=== PATIENT | male | born 1945 | race Caucasian/White ===

== ENCOUNTER 2018-12-24 11:02 | Outpatient (CLI) | payer MEDICARE, SELFPAY ==
--- NOTE | 2018-12-24 11:00 | DI.RAD_ITS ---
SYMPTOM/DIAGNOSIS: LT KNEE PAIN, ? FOREIGN BODY LEFT KNEE: There is mild narrowing of the medial femoral tibial joint space and mild periarticular spurring. No joint effusion is seen. There is some thickening in the anterior soft tissues but no evidence of calcification or joint space loose bodies. IMPRESSION: Mild degenerative changes.
== END 2018-12-24 11:22 ==
PROVIDERS: PCP Family Medicine; Referring Provider Family Medicine; Visit Provider Student in an Organized Health Care Education/Training Program
DX: M25.562 Pain in left knee (principal); M17.12 Unilateral primary osteoarthritis, left knee; Z18.9 Retained foreign body fragments, unspecified material; I10 Essential (primary) hypertension
CPT/HCPCS: 20610; 73562; 99214; J1030

== ENCOUNTER 2020-05-06 03:16 | Outpatient (CLI) | payer MEDICARE, SELFPAY ==
[2020-05-15 16:38] LABS: AFP Tumor Marker <2.5 ng/mL (<8.1)
== END 2020-05-06 03:36 ==
PROVIDERS: PCP Family Medicine; Visit Provider Family Medicine
DX: K75.81 Nonalcoholic steatohepatitis (NASH) (principal)
CPT/HCPCS: 36415; 82105

== ENCOUNTER 2020-06-24 09:44 | Emergency (ER) | payer MEDICARE, SELFPAY ==
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
[2020-06-24 09:59] VITALS: BP 167/71; PULSE 86; RESP 20; TEMP 36.9; O2SAT 99
--- NOTE | 2020-06-24 10:07 | W.ED.GENAD ---
Discharge Plan Disposition Patient Disposition: HOME Condition: Stable Discharge Details Clinical Impression: Sprain of right thumb Primary Care Provider: Avelino Caballero ED Provider: Kristy Corley Home Meds and New Rx's Prescriptions: Continued terazosin 2 MG capsule 10 mg PO HS RF: 0 simvastatin 20 MG tablet 20 mg PO HS RF: 0 finasteride 5 MG tablet 5 mg PO DAILY RF: 0 omeprazole 10 MG capsule,delayed release(DR/EC) 20 mg PO DAILY RF: 0 furosemide 20 MG tablet 20 mg PO 5XW RF: 0 Discharge Instructions Instructions: Finger Sprain (ED) Additional Instructions: Rest, ice, and elevate the affected area as much as possible. Alternate tylenol and motrin as needed and directed for pain. Follow-up with your scheduled appointment with Dr. Campos on Monday. Return immediately to the emergency department if you develop any worsening or new concerning symptoms. Referrals: Donavan Campos MD [ [facility] ST[facility]FF PHYSICIAN] - Discharge Data Discharge Date/Time-TO BE ENTERED AT DEPARTURE: 06/24/20 12:08 Discharge Physician: Kristy Corley Medical Decision Making 75yo M with R thumb pain for the past 3 days after he dislocated it while cutting plastic with scissors. He since has dislocated it 3 times and reduced each time himself. Presenting now with increased pain at some. He has tenderness to palpation and mild to moderate edema at the right thumb. When isolating at PIP and DIP, he appears to have normal motor and sensory function but with increased pain. There is no evidence of cellulitis. No obvious deformity or crepitus. Patient declines medication for pain. Suspect either fracture or inflammation after multiple dislocations. Will refer for right thumb x-ray. Thumb x-ray negative for fracture or dislocation. Case and x-ray reviewed with Dr. Nga inman to dislocate the thumb. Agrees with plan for thumb spica. Patient will follow up with his appointment with Dr. Campos on Monday. Usual and customary return precautions given prior to discharge. Medical Records Medical records reviewed: Yes I reviewed the patient's medical records. Imaging Data Radiologic Study: Radiologist's impression: XR THUMB RT CLINICAL HISTORY: s/p multiple dislocations R thumb. TECHNIQUE: 2D digital imaging was performed. COMPARISON: No exams were available for comparison FINDINGS: BONES: No acute fracture is present. No bony destructive lesion is seen. There is a tiny density anterior to the distal aspect of the proximal phalanx of the right thumb which appears chronic. JOINTS: No dislocation present. Mild degenerative changes of the interphalangeal joint of the thumb. SOFT TISSUE: Normal. IMPRESSION: No evidence of acute fracture, dislocation, or subluxation. HPI General Mode of arrival: ambulatory. Date/Time Provider Initiated Documentation: 06/24/20 09:45. Limitations to Documentation: no limitations. Information obtained by: patient. HPI Narrative: Patient is a 75-year-old male who presents with right thumb pain after dislocating it 3 times this week. Patient states he was cutting plastic with scissors 2 days ago when he felt his right thumb dislocate. He states he was able to reduce it himself and since then it has dislocated a few times on its own, each time stating that he was able to reduce himself. He states today he now has more pain and swelling and pain with range of motion. He denies any fever. Related Data Home Medications Medication Instructions Recorded Confirmed omeprazole 20 mg PO DAILY 01/20/15 06/24/20 finasteride 5 mg PO DAILY tab-cap 08/28/15 06/24/20 simvastatin 20 mg PO HS tab-cap 08/28/15 06/24/20 terazosin 10 mg PO HS tab-cap 08/28/15 06/24/20 furosemide 20 mg PO 5XW 09/10/16 06/24/20 Allergies Allergy/AdvReac Type Severity Reaction Status Date / Time No Known Allergies Allergy Unverified 06/24/20 10:06 General Stated Complaint: Orthopedic JENNIFER: 4 Review of Systems All systems reviewed & are unremarkable except as noted in HPI and below [facility] Medical History (Updated 06/24/20 @ 11:50 by Kristy Corley DO) Allergic rhinitis BPH (benign prostatic hyperplasia) GERD Hypertension Spinal stenosis Surgical History (Updated 04/18/18 @ 14:33 by [employer] [place]) Endoscopic Carpal Tunnel release (06/07/16) Repair of inguinal hernia Rotator Cuff Repair (09/03/15) Social History Smoking/Tobacco Use Status: Never Smoking risk assessment performed?: Yes Alcohol Intake: never Drug use: Never Substance use type: does not use Do you feel safe at home: Yes Do you feel safe in your relationship?: Yes Exam Const General: cooperative, healthy appearing and no acute distress HENMT Head: normal to inspection Mouth: oral mucosae normal Eyes General: appearance normal, both eyes and all related structures Neck Neck: normal visual inspection Resp Effort & Inspection: normal respiratory effort and able to speak in complete sentences Cardio Rate: regular rate Skin General skin exam: no rashes or lesions noted Neuro General: patient alert, patient awake and patient oriented x3 Motor: muscle tone normal throughout Other: There is normal motor function at the DIP and PIP joints of the right thumb when isolating each joint which mainly causes pain. Motor/sensory grossly intact. Extrem Hand/finger images: 1. Tenderness to palpation and mild to moderate edema of right thumb extending from base to tip. Majority of pain is in the base of the thumb. There is no erythema, Psych Appearance: grossly normal Affect: normal affect Course Vital Signs Vital signs: Vital Signs Temperature 98.4 F 06/24/20 09:59 Pulse 86 06/24/20 09:59 Respiratory Rate 20 06/24/20 09:59 Blood Pressure 167/71 H 06/24/20 09:59 Pulse Oximetry 99 06/24/20 09:59 Temperature 98.4 F 06/24/20 09:59 Temperature Source Skin 06/24/20 09:59 Pulse 86 06/24/20 09:59 Respiratory Rate 20 06/24/20 09:59 Blood Pressure 167/71 H 06/24/20 09:59 Blood Pressure Position Sitting 06/24/20 09:59 Pulse Oximetry 99 06/24/20 09:59 Oxygen Delivery Method Room Air 06/24/20 09:59 Oxygen Flow Rate 0 06/24/20 09:59 Pain Level 5 06/24/20 09:59
--- NOTE | 2020-06-24 10:15 | DI.RAD_ITS ---
EXAM: XR THUMB RT CLINICAL HISTORY: s/p multiple dislocations R thumb. TECHNIQUE: 2D digital imaging was performed. COMPARISON: No exams were available for comparison FINDINGS: BONES: No acute fracture is present. No bony destructive lesion is seen. There is a tiny density ant erior to the distal aspect of the proximal phalanx of the right thumb which appears chronic. JOINTS: No dislocation present. Mild degenerative changes of the interphalangeal joint of the thumb. SOFT TISSUE: Normal. IMPRESSION: No evidence of acute fracture, dislocation, or subluxation. DATA REPOSITORY: RADIATION DOSE DELIVERED:
== END 2020-06-24 12:08 | disposition home or self-care (01) ==
PROVIDERS: Emergency Provider Physician Assistant; PCP Family Medicine
DX: S63.621A Sprain of interphalangeal joint of right thumb, initial encounter (principal); X50.9XXA Other and unspecified overexertion or strenuous movements or postures, initial encounter; I10 Essential (primary) hypertension
CPT/HCPCS: 99283; 73140

== ENCOUNTER → 2020-06-29 13:54 | Outpatient (BNVA) | payer MEDICARE, SELFPAY | PROVIDERS: PCP Family Medicine; Referring Provider Family Medicine; Visit Provider Student in an Organized Health Care Education/Training Program | DX: S63.641A Sprain of metacarpophalangeal joint of right thumb, initial encounter (principal); X50.9XXA Other and unspecified overexertion or strenuous movements or postures, initial encounter; I10 Essential (primary) hypertension | CPT/HCPCS: 99214 ==

== ENCOUNTER 2020-09-18 03:43 | Outpatient (CLI) | payer OTHER, SELFPAY ==
--- NOTE | 2020-09-18 | DI.US_ITS ---
APPROVED REPORT EXAM: Comprehensive 2D, Doppler, and color-flow Echocardiogram Patient Location: Out-Patient Car Worker: Siobhan Dinh RDCS (AE) Indications: Arrhythmia, Edema, Hypertension, LVH by EKG Other Information Study Quality: Good Conclusion Normal left ventricular wall thickness and chamber size. Estimated ejection fraction is 60%. There are no segmental wall motion abnormalities Normal right ventricular size and systolic function Both atria are normal in size There are no structural valvular abnormalities Mild to moderate mitral and tricuspid regurgitation. Normal estimated right ventricular systolic pre ssure 30 mmHg Dilated ascending aorta measuring 4.19 cm Wall motion Left Ventricle The left ventricle is normal size. The left ventricular systolic function is normal. The left ventric ular ejection fraction is within the normal range. There is normal left ventricular wall thickness. T here is normal LV segmental wall motion. There is no ventricular septal defect visualized. LVEF is 60 %. Right Ventricle The right ventricle is normal size. The right ventricular systolic function is normal. The RVSP is 30 .3mmHg. Atria The left atrium size is normal. The right atrium size is normal. The interatrial septum is intact wit h no evidence for an atrial septal defect. Aortic Valve The aortic valve is normal in structure. Aortic valve is trileaflet. There is no aortic valvular sten osis. No aortic regurgitation is present. Mitral Valve The mitral valve is normal in structure. No evidence of mitral valve stenosis. Mild to moderate jessi l regurgitation. Tricuspid Valve The tricuspid valve is normal in structure. There is no tricuspid valve stenosis. Mild to moderate tr icuspid regurgitation. Pulmonic Valve The pulmonary valve is normal in structure. There is no pulmonic valvular stenosis. Trace pulmonic re gurgitation. Great Vessels The aortic root is normal in size. The ascending aorta is moderately dilated.4.19 cm Aortic arch is n ormal in caliber. IVC is normal in size and collapses >50% with inspiration. Pericardium There is no pericardial effusion. 2D Dimensions IVSD d PLAX 1.02 cm M: 0.6-1.2 LV Vol A2C d MOD 76.5 mL LVPW d PLAX 1.02 cm M: 0.6 - 1.2 LV Vol A4C d MOD 135.9 mL LVID d PLAX 4.97 cm M: 4.2 - 5.8 LA vol/ BSA A2C s A-L 30.2 mL/m2 LVDs 3.25 cm M: 2.5 - 4.0 LA vol/ BSA A4C s A-L 34.8 mL/m2 Ao Root d 3.01 cm M: 3.1 - 3.7 LA Vol/ BSA Biplane s A-L 33.1 mL/m2 RA Area A4C 21.91 cm2 LA Area A4C s MOD 22.92 cm2 RA Vol/ BSA A4C s A-L 32.1 mL/m2 LA Area A2C s MOD 20.96 cm2 Ao Asc Diam d 4.19 cm M: 2.6 - 3.4 LV EF A4C MOD 59.5 % LV EF Teichholz 63.0 % LV EF A2C MOD 61.1 % LVEF (Mercado's) 60.08 % M: 52 - 72 LV EF Biplane MOD 60.1 % LV Volume 77.73 mL M: 62 - 150 SV 62.88 mL LV Volume Index 37.73 mL/m2 M: 34 - 74 SV Index 30.52 mL/m2 LV Vol Biplane MOD 104.7 mL FS 34.20 % M-Mode TAPSE 2.53 cm (M/F) >1.7 LV Diastology MV E' medial 0.088 (>0.07 m/s) E/A Ratio 1.1 LV E/e MED 9.10 (<14) MV E Vmax 0.80 (0.4-1.3 m/s) MV E' lateral 0.106 (>0.1 m/s) MV A Vmax 0.70 (0.4-1.3 m/s) LV E/e LAT 7.55 (<14) MV E/A Ratio 1.13 MV E/E' medial 9.14 MV E/E' lateral 7.56 Aortic Valve LVOT Area 2.98 cm2 AoV Area Vmax 2.12 cm2 LVOT Vmax 1.11 m/s AoV Area/ BSA (Vmax) 1.03 cm2/m2 LVOT Mean Michael. 0.77 m/s AIMEE Mean Michael. 2.01 cm2 LVOT Peak Grad 5.0 mmHg AIMEE Mean Michael. Index 0.97 cm2/m2 LVOT Mean Grad 2.6 mmHg LVOT VTI 0.252 m LVOT Diam s 1.90 cm AoV Vmax 1.56 m/s Velocity Ratio 0.71 AoV Mean Michael. 1.14 m/s AoV Peak Grad 9.8 mmHg LVOT SV 75.03 mL AoV Mean Grad 5.6 mmHg AoV VTI 0.350 m AoV Area VTI 2.14 cm2 AoV Area/ BSA (VTI) 1.04 cm/m2 Mitral Valve MV DT 181 (160-240 msec) MR Vmax 5.62 m/s MV PHT 52 msec MR VTI 2.064 m MV Area PHT 4.19 cm2 MR Peak Grad 126.4 mmHg MV VTI 0.234 m MR Mean Grad 91.4 mmHg MV VTI Annulus 0.240 m MR PISA Radius 0.55 cm MV Area VTI 3.30 (4.0-6.0 cm2) MR EROA 0.12 cm2 MR Aliasing Velocity 0.35 m/s MR PISA 1.88 cm2 Pulmonary Valve PV Vmax 1.22 (0.5-1.5 m/s) RVOT Peak Gr. 1.79 mmHg PV Peak Grad 5.9 mmHg RVOT Mean Gr. 0.90 mmHg PV Mean Grad 2.4 mmHg RVOT VTI 0.152 m PV VTI 0.239 m RVOT Vmax 0.67 m/s Tricuspid Valve TR Peak Grad 27.2 mmHg TR Vmax 2.61 m/s RA Pressure 3.00 mmHg RVSP (TR) 30.3 mmHg
== END 2020-09-18 04:03 ==
PROVIDERS: PCP Family Medicine; Visit Provider Internal Medicine
DX: I49.9 Cardiac arrhythmia, unspecified (principal); I10 Essential (primary) hypertension; R60.0 Localized edema; I08.1 Rheumatic disorders of both mitral and tricuspid valves; I51.7 Cardiomegaly
CPT/HCPCS: 93306

== ENCOUNTER → 2020-12-10 08:49 | Outpatient (BNVA) | payer MEDICARE, SELFPAY | PROVIDERS: PCP Family Medicine; Referring Provider Family Medicine; Visit Provider Student in an Organized Health Care Education/Training Program | DX: M25.852 Other specified joint disorders, left hip (principal); M25.552 Pain in left hip | CPT/HCPCS: 99213 ==

== ENCOUNTER 2020-12-10 10:03 | Outpatient (CLI) | payer MEDICARE, SELFPAY ==
--- NOTE | 2020-12-10 08:45 | DI.RAD_ITS ---
Exam(s) XR HIP LT COMPLETE AP PELVIS EXAM: XR HIP LT COMPLETE AP PELVIS INDICATION: left hip pain. TECHNIQUE: 2D digital imaging was performed. FINDINGS: The hip joint spaces are well maintained bilaterally. There is bilateral acetabular spurring, left g reater than right. A subchondral cyst is seen in the superior acetabulum on the left. There is mild spurring at the margin of the femoral heads.. IMPRESSION: [id number] degenerative changes of both hips, left greater than right. DATA REPOSITORY: RADIATION DOSE DELIVERED:
== END 2020-12-10 10:04 | disposition home or self-care (01) ==
LOC: DIORS 10:09
PROVIDERS: PCP Family Medicine; Referring Provider Family Medicine; Visit Provider Student in an Organized Health Care Education/Training Program
DX: M16.0 Bilateral primary osteoarthritis of hip (principal)
CPT/HCPCS: 99213; 73502

== ENCOUNTER 2020-12-31 03:23 | Outpatient (CLI) | payer MEDICARE, SELFPAY ==
--- NOTE | 2020-12-31 08:30 | DI.RAD_ITS ---
Exam(s) RF JOINT INJECTION FLUORO GUID EXAM: RF JOINT INJECTION FLUORO GUID CLINICAL HISTORY: L HIP INJ UNDER FLUORO, HIP PAIN LT, M25.552 TECHNIQUE: Fluoroscopy provided. Radiologist not present. CONTRAST MATERIAL: None COMPARISON: No exams were available for comparison FINDINGS: Fluoroscopy was provided left hip injection Submitted image(s) reveal needle placement lateral aspect of the femoral head. Contrast injected. Please refer to the procedure report for complete details. Cumulative Dose: greg Arzola=6.78 mGy IMPRESSION: RADIATION DOSE DELIVERED:
[2020-12-31] MEDS: Omnipaque 300 MG/ML 10 ML BTL IJ (14:54)
[2020-12-31] MEDS: Bupivacaine 0.5% Pres-Free 10 ML VIAL IJ (14:55)
[2020-12-31] MEDS: methylPREDNISolone ACETATE 80 MG/ML VIAL IM (14:56)
--- NOTE | 2020-12-31 15:26 | W.PROCNOTE ---
Date of service: 12/31/20 Time of Service: 14:46 Procedure Note Date of procedure: 12/31/20 Procedure: Left Hip Injection with Fluoroscopic Guidance Surgeon/Proceduralist/Physician: Donavan Campos Procedure Diagnosis: Left Hip Impingement Procedure Indications: Allen has had persistent pain of the LEFT hip and groin. Noninvasive measures have been tried. To serve as both diagnostic and therapeutic, an injection under fluoroscopy was recommended. I had discussed the risks of the procedure and the patient elected to proceed. Procedure Description: Allen was greeted in the flouroscopy room. The correct side was identified and the consent was reviewed with the patient and signed. The patient was then placed in the supine position on the fluoroscopy table. The LEFT hip was then prepped with Chloraprep. The anterolateral injection starting point was identiifed by bony landmarks and fluoroscopy. The skin and soft tissue in the tract of the injection was anesthetized with 1% Lidocaine. A spinal needle was then inserted deep into the hip joint at the level of the lateral femoral neck under fluoroscopic guidance. A small amount of Omnipaque solution was injected to confirm intraarticular placement. Once confirmed, the hip was injected with 6cc of 0.5% Bupivicaine and 80mg of Depo-Medrol. A bandaid was placed on the injection site. The patient tolerated the procedure well and noted improvement in pre-injection pain.
== END 2020-12-31 03:43 ==
PROVIDERS: PCP Family Medicine; Visit Provider Student in an Organized Health Care Education/Training Program
DX: M25.852 Other specified joint disorders, left hip (principal); M25.552 Pain in left hip; R10.32 Left lower quadrant pain
CPT/HCPCS: 20610; 77002; J1040

== ENCOUNTER 2021-08-10 02:05 | Outpatient (CLI) | payer MEDICARE, SELFPAY ==
[2021-08-10 07:27] LABS: Abs Immature Grans 0.02 10^3/uL (0.0-0.06); Absolute Basophil Count 0.04 10^3/uL (0.0-0.2); Absolute Eosinophil Count 0.15 10^3/uL (0.0-0.7); Absolute Lymphocyte Count 2.49 10^3/uL (1.2-3.4); Absolute Monocyte Count 0.65 10^3/uL (0.1-0.8); Absolute Neutrophil Count 5.05 10^3/uL (1.2-6.7); Basophils % 0.5; Eosinophils % 1.8; HCT 39.5 % (40.0-50.0); HGB 13.3 g/dL (13.5-17.5); Immature Grans % 0.2; Lymphocytes % 29.6; MCH 31.8 pg (27.0-33.0); MCHC 33.7 % (32.0-36.0); MCV 94.5 fL (80-95); MPV 11.8 fL (8.0-11.0); Monocytes % 7.7; Neutrophils % 60.2; Nucleated RBC 0 %; Platelet Count 116 10^3/uL (130-400); RBC 4.18 10^6/uL (4.36-5.78); RDW 11.8 % (11.8-14.1); RDW-SD 41.2 fL
[2021-08-10 07:28] LABS: Bilirubin Negative (Negative); Blood Large (Negative); Clarity Cloudy (Clear); Glucose Negative (Negative); Ketones Negative (Negative); Leukocyte Esterase Small (Negative); Nitrite Negative (Negative); Specific Gravity >= 1.030 (1.005-1.025); Urobilinogen 0.2 EU/dL (Up TO 0.2)
[2021-08-10 07:44] LABS: Bacteria Moderate HPF (Negative); C & S Indicated? Yes; Casts Negative LPF (Negative); Epithelial Cells Few HPF (Negative); Mucus Heavy (Negative); Other Cells Negative (Negative); RBC 20-50 HPF (0-2)
[2021-08-10 08:13] LABS: Anion Gap 11.2 mmol/L (3-11); BUN 31 mg/dL (7-18); CO2 24.8 mmol/L (21.0-32.0); Chloride 104 mmol/L (98-107); Estimated GFR 32.56 (mL/min/1.73m2); Glucose 99 mg/dL (74-106); Potassium 4.4 mmol/L (3.5-5.1); Sodium 140 mmol/L (136-145)
== END 2021-08-10 02:06 | disposition home or self-care (01) ==
LOC: LBO 02:06
PROVIDERS: PCP Family Medicine; Visit Provider Physician Assistant Medical
DX: R35.0 Frequency of micturition (principal); N30.01 Acute cystitis with hematuria
CPT/HCPCS: 36415; 80048; 81003; 81015; 85025; 87086

== ENCOUNTER 2021-08-11 22:21 | Emergency (ER) | payer MEDICARE, SELFPAY ==
[2021-08-11 22:28] VITALS: BP 116/60; PULSE 78; RESP 20; TEMP 36.3; O2SAT 95
--- NOTE | 2021-08-11 22:33 | ED.GENADUL_ITS ---
Discharge Plan Disposition Patient Disposition: HOME Condition: Improving Discharge Details Clinical Impression: Complication, blocked Sapp catheter Primary Care Provider: Avelino Caballero ED Provider: Mary Snider Home Meds and New Rx's Prescriptions: Continued magnesium 200 mg tablet 400 mg PO DAILY 0RF lisinopril 2.5 mg tablet 2.5 mg PO DAILY 0RF potassium chloride 10 mEq tablet,ER particles/crystals 10 meq PO DAILY 0RF terazosin 2 MG capsule 10 mg PO HS 0RF simvastatin 20 MG tablet 20 mg PO HS 0RF finasteride 5 MG tablet 5 mg PO DAILY 0RF omeprazole 10 MG capsule,delayed release(DR/EC) 20 mg PO DAILY 0RF furosemide 20 MG tablet 20 mg PO 5XW 0RF sulfamethoxazole-trimethoprim 800-160 mg tablet 1 tab PO BID 0RF Label Comments: TAKE ONE TABLET BY MOUTH TWICE A DAY FOR URINE INFECTION oxybutynin chloride 5 mg tablet 0RF Discharge Instructions Instructions: Sapp Catheter Placement and Care (ED) Additional Instructions: If no urine output you may try to irrigate catheter by hand with 15-20ml of saline. If this does not relieve the blockage, please be seen again. Keep your appointment with urology as previously scheduled. Continue taking the medication as previously prescribed. Follow up with primary care provider in 3-5 days. Return to ED sooner if any worsening or concerns. Increase oral fluids. Referrals: Avelino Caballero [Primary Care Provider] - 5 days Discharge Data Discharge Date/Time-TO BE ENTERED AT DEPARTURE: 08/11/21 23:31 Medical Decision Making 76-year-old male presents to the ER chief complaint of decreased urinary output in his catheter. Family which is here with him states that around 8:45 PM evening she changed out his leg bag which he noted only had 100 cc in the bag. She reports that he intermittently bends over with bladder spasm type pain to his lower abdomen. Denies any associated symptoms no fever no nausea vomiting. He has been self cathing over the weekend and had a indwelling Sapp catheter placed on Monday. He does have a past medical history of BPH, GERD, hypertension, DVT, spinal stenosis. He has an appointment with urology on the . He did see his PCP yesterday who ordered a urinalysis showed large blood 20-50 RBCs small leukocytes. And uric acid crystals. Opium and Belladonna ND ordered, bladder scan, and hand irrigation of Sapp. Opium and belladonna rectal suppository not available. Per RN report bladder scan shows 350 cc of urine. 2311: nurse staff industrial irrigated with approx 25 cc without any difficulty, catheter draining. Approximately 600 ml output. Patient discharge instructions given to family who verbalized understanding and feels comfortable taking care of patient at home. Discussed strict return instructions. This text was generated using [employer] dictation system, please disregard any oddities of phrase or misspellings. HPI General Mode of arrival: ambulatory . Date/Time Provider Initiated Documentation: 08/11/21 22:22 . Limitations to Documentation: no limitations . Information obtained by: patient and RN notes reviewed . HPI Narrative: 76-year-old male presents to the ER chief complaint of decreased urinary output in his catheter. Family which is here with him states that around 8:45 PM evening she changed out his leg bag which he noted only had 100 cc in the bag. She reports that he intermittently bends over with bladder spasm type pain to his lower abdomen. Denies any associated symptoms no fever no nausea vomiting. He has been self cathing over the weekend and had a indwelling Sapp catheter placed on Monday. He does have a past medical history of BPH, GERD, hypertension, DVT, spinal stenosis. He has an appointment with urology on the . He did see his PCP yesterday who ordered a urinalysis showed large blood 20-50 RBCs small leukocytes. And uric acid crystals. Related Data Home Medications Medication Instructions Recorded Confirmed omeprazole 10 mg capsule,delayed 20 mg PO DAILY 01/20/15 08/11/21 release finasteride 5 mg tablet 5 mg PO DAILY tab-cap 08/28/15 08/11/21 simvastatin 20 mg tablet 20 mg PO HS tab-cap 08/28/15 06/24/20 terazosin 2 mg capsule 10 mg PO HS tab-cap 08/28/15 08/11/21 furosemide 20 mg tablet 20 mg PO 5XW 09/10/16 08/11/21 lisinopril 2.5 mg tablet 2.5 mg PO DAILY 12/10/20 08/11/21 magnesium 200 mg tablet 400 mg PO DAILY tab 12/10/20 08/11/21 potassium chloride 10 mEq 10 meq PO DAILY 12/10/20 08/11/21 tablet,extended release(part/cryst) oxybutynin chloride 5 mg tablet 08/11/21 08/11/21 sulfamethoxazole 800 1 tab PO BID 08/11/21 08/11/21 mg-trimethoprim 160 mg tablet Allergies Allergy/AdvReac Type Severity Reaction Status Date / Time No Known Allergies Allergy Unverified 12/10/20 08:53 General Stated Complaint: Urinary JENNIFER: 3 Review of Systems All systems reviewed & are unremarkable except as noted in HPI and below Genitourinary Genitourinary: Reports as per HPI and Reports other (Decreased Sapp drainage, increased lower suprapubic cramping and fullness) PFSH All Active Problems (Updated 08/11/21 @ 23:20 by Mary Snider) Complication, blocked Sapp catheter (Acute) Femoral acetabular impingement (Acute) left hip Foreign body of knee, left, superficial (Acute) Spondylosis of lumbar region without myelopathy or radiculopathy (Chronic) Lumbar radicular pain (Chronic) Rotator cuff tear, right (Acute) Medical History (Updated 08/11/21 @ 23:20 by Mary Snider) Acute deep vein thrombosis (DVT) of brachial vein of right upper extremity (11/11/15) Allergic rhinitis BPH (benign prostatic hyperplasia) Complete tear of right rotator cuff (10/14/15) GERD Hypertension Right carpal tunnel syndrome (05/12/16) Spinal stenosis Spondylolisthesis at L4-L5 level (10/24/16) Surgical History Endoscopic Carpal Tunnel release (06/07/16) Repair of inguinal hernia Rotator Cuff Repair (09/03/15) Social History Smoking/Tobacco Use Status: Never Smoking risk assessment performed?: Yes Alcohol Intake: never Drug use: Never Substance use type: does not use Do you feel safe at home: Yes Do you feel safe in your relationship?: Yes Exam Narrative Exam Narrative: Constitutional: Alert and oriented x3. Appears stated age. Normal body habitus. Head: Normocephalic, no trauma. Eyes: Pupils PERRL, Red reflex noted, EOM's intact. Eyelids symmetrical without lesions, discharge, or swelling. ENT: Bilateral TM's WNL, External ear normal to inspection, no mastoid TTP, swelling, or erythema, Nasal turbinates WNL, no nasal discharge. Normal dentition, Posterior pharynx WNL, no exudate. Chest: RRR, Normal S1, S2, distal pulses intact. Resp: Lungs clear to auscultation bilaterally, no wheezes, rales, or rhonchi. Abdomen: Soft, non-distended, Normoactive bowel sounds all 4 quads. Suprapubic tenderness with palpation. Musculoskeletal: Normal gait, 5/5 strength to all four extremities. Skin: No suspicious rashes or lesions. Capillary refill less than 2 sec. Neurologic: Cranial nerves II-XII intact. Alert and oriented x 3. Motor: No def icits noted. Sensory: Intact bilaterally all 4 extremities. Reflexes: DTR's intact bilaterally.. Hematologic/Lymphatic: No ecchymosis, no lymphadenopathy. Const General: cooperative, comfortable, well developed and well groomed Nutritional Appearance: average body habitus Orientation: alert, awake and oriented x3 Resp Effort & Inspection: normal respiratory effort and able to speak in complete sentences Auscultation: clear to auscultation bilaterally Cardio Rate: regular rate Other: Sapp Catheter in place Course Vital Signs Vital signs: Vital Signs Temperature 36.3 C L 08/11/21 22:28 Pulse 78 08/11/21 22:28 Respiratory Rate 20 08/11/21 22:28 Blood Pressure 116/60 08/11/21 22:28 Pulse Oximetry 95 08/11/21 22:28 Temperature 36.3 C L 08/11/21 22:28 Temperature Source Temporal Artery Scan 08/11/21 22:28 Pulse 78 08/11/21 22:28 Respiratory Rate 20 08/11/21 22:28 Blood Pressure 116/60 08/11/21 22:28 Blood Pressure Position Sitting 08/11/21 22:28 Pulse Oximetry 95 08/11/21 22:28 Oxygen Delivery Method Room Air 08/11/21 22:28 Oxygen Flow Rate 0 08/11/21 22:28 Pain Level 3 08/11/21 22:28
[2021-08-11 23:27] LABS: Bilirubin Negative (Negative); Blood Large (Negative); Clarity Sl Cloudy (Clear); Glucose Negative (Negative); Ketones Negative (Negative); Leukocyte Esterase Trace (Negative); Nitrite Negative (Negative); Specific Gravity 1.025 (1.005-1.025); Urobilinogen 0.2 EU/dL (Up TO 0.2); pH 5.5 (5-8)
[2021-08-11 23:36] LABS: Bacteria Negative HPF (Negative); Epithelial Cells Negative HPF (Negative); Mucus Negative (Negative); RBC >50 HPF (0-2)
--- NOTE | 2021-08-11 23:36 | NUR.NOTE ---
Nursing Note: Bladder scanning showed 354 ml urine. Irrigated with 50 ml of sterile NS. Cleared catheter. Approx 500 ml drained.
[2021-08-11 23:37] VITALS: BP 124/68; PULSE 80; RESP 18; TEMP 36.6; O2SAT 80
[2021-08-11 23:37] LABS: C & S Indicated? Yes
== END 2021-08-11 23:31 | disposition home or self-care (01) ==
PROVIDERS: Emergency Provider Registered Nurse Emergency; PCP Family Medicine
DX: T83.098A Other mechanical complication of other urinary catheter, initial encounter (principal); N40.1 Benign prostatic hyperplasia with lower urinary tract symptoms; R33.8 Other retention of urine
CPT/HCPCS: 99283; 81003; 81015; 87086

== ENCOUNTER 2021-08-12 23:15 | Emergency (ER) | payer MEDICARE, SELFPAY ==
--- NOTE | 2021-08-12 23:20 | ED.GENADUL_ITS ---
Discharge Plan Disposition Patient Disposition: HOME Condition: Stable Discharge Details Clinical Impression: Complication, blocked Ochoa catheter Primary Care Provider: Avelino Caballero ED Provider: Otis Sharif Home Meds and New Rx's Prescriptions: Continued magnesium 200 mg tablet 400 mg PO DAILY 0RF lisinopril 2.5 mg tablet 2.5 mg PO DAILY 0RF potassium chloride 10 mEq tablet,ER particles/crystals 10 meq PO DAILY 0RF terazosin 2 MG capsule 10 mg PO HS 0RF simvastatin 20 MG tablet 20 mg PO HS 0RF finasteride 5 MG tablet 5 mg PO DAILY 0RF omeprazole 10 MG capsule,delayed release(DR/EC) 20 mg PO DAILY 0RF furosemide 20 MG tablet 20 mg PO 5XW 0RF sulfamethoxazole-trimethoprim 800-160 mg tablet 1 tab PO BID 0RF Label Comments: TAKE ONE TABLET BY MOUTH TWICE A DAY FOR URINE INFECTION oxybutynin chloride 5 mg tablet 0RF Discharge Instructions Instructions: Ochoa Catheter Placement and Care (ED) Additional Instructions: follow up with urology as scheduled if you feel more ill, have severe pain or fever return to the emergency department Medical Decision Making 76 yo male with hx of bph who has a ochoa in place since Monday and was placed at the MD, and seen yesterday due to it being clogged and had it flushed with successful drainage afterwards, comes in stating that it hasn't been draining tonight. Has not tried flushing at home. Denies fevers, abdomen pain, fevers, or blood in urine. He finished bactrim today for uti per family. He had the ochoa changed by nursing prior to my exam and is draining clear urine without blood or debris. He has no symptoms now and no abdominal tenderness. Given ochoa is now draining and now symptoms do not feel labs indicated though will send urine culture from the new ochoa to evaluate for resolution of the infection. He has f/u with urology this Monday at [facility]. Nursing did education with him and his . Stable for d/c and return precautions given Differential Diagnosis Differential Diagnosis: clogged catheter, bph Medical Records Medical records reviewed: Yes I reviewed the patient's medical records. HPI General Mode of arrival: ambulatory . Date/Time Provider Initiated Documentation: 08/12/21 23:15 . Limitations to Documentation: no limitations . Information obtained by: patient and family . History of Present Illness 76 year old M presents to the emergency department with the chief complaint of clogged catheter, described as moderate, and it has been constant. improves with No relieving factors improve symptom(s), No exacerbating factors reported . Patient notes no other symptoms.. Related Data Home Medications Medication Instructions Recorded Confirmed omeprazole 10 mg capsule,delayed 20 mg PO DAILY 01/20/15 08/11/21 release finasteride 5 mg tablet 5 mg PO DAILY tab-cap 08/28/15 08/11/21 simvastatin 20 mg tablet 20 mg PO HS tab-cap 08/28/15 06/24/20 terazosin 2 mg capsule 10 mg PO HS tab-cap 08/28/15 08/11/21 furosemide 20 mg tablet 20 mg PO 5XW 09/10/16 08/11/21 lisinopril 2.5 mg tablet 2.5 mg PO DAILY 12/10/20 08/11/21 magnesium 200 mg tablet 400 mg PO DAILY tab 12/10/20 08/11/21 potassium chloride 10 mEq 10 meq PO DAILY 12/10/20 08/11/21 tablet,extended release(part/cryst) oxybutynin chloride 5 mg tablet 08/11/21 08/11/21 sulfamethoxazole 800 1 tab PO BID 08/11/21 08/11/21 mg-trimethoprim 160 mg tablet Allergies Allergy/AdvReac Type Severity Reaction Status Date / Time No Known Allergies Allergy Unverified 12/10/20 08:53 General JENNIFER: 3 Review of Systems All systems reviewed & are unremarkable except as noted in HPI and below Constitutional Constitutional: Denies chills, Denies fever(s) and Denies weakness Cardiovascular Cardiovascular: Denies chest pain and Denies dyspnea Respiratory Respiratory: Denies cough and Denies dyspnea Gastrointestinal Gastrointestinal: Denies abdominal pain, Denies nausea and Denies vomiting Integumentary/Breasts Skin/Breast: Denies rash Neurologic Neurologic: Denies weakness PFSH All Active Problems (Updated 08/12/21 @ 23:24 by Otis Sharif MD) Complication, blocked Ochoa catheter (Acute) Femoral acetabular impingement (Acute) left hip Foreign body of knee, left, superficial (Acute) Spondylosis of lumbar region without myelopathy or radiculopathy (Chronic) Lumbar radicular pain (Chronic) Rotator cuff tear, right (Acute) Medical History (Updated 08/12/21 @ 23:24 by Otis Sharif MD) Acute deep vein thrombosis (DVT) of brachial vein of right upper extremity (11/11/15) Allergic rhinitis BPH (benign prostatic hyperplasia) Complete tear of right rotator cuff (10/14/15) GERD Hypertension Right carpal tunnel syndrome (05/12/16) Spinal stenosis Spondylolisthesis at L4-L5 level (10/24/16) Surgical History Endoscopic Carpal Tunnel release (06/07/16) Repair of inguinal hernia Rotator Cuff Repair (09/03/15) Social History Smoking/Tobacco Use Status: Never Smoking risk assessment performed?: Yes Alcohol Intake: never Drug use: Never Substance use type: does not use Do you feel safe at home: Yes Do you feel safe in your relationship?: Yes Exam Const General: no acute distress Orientation: alert HENMT Head: normal to inspection Ears: external ears normal General nose exam: external nose normal Mouth: moist mucous membranes Eyes General: appearance normal, both eyes and all related structures Neck Neck: normal visual inspection Resp Effort & Inspection: normal respiratory effort and able to speak in complete sentences Cardio Rate: regular rate GI Palpation: soft and nontender Skin General skin exam: no rashes or lesions noted Neuro General: patient alert and patient oriented x3 Extrem General: normal to inspection Psych Mental Status: mental status grossly normal
[2021-08-12 23:31] VITALS: BP 116/84; PULSE 86; RESP 18; TEMP 36.6; O2SAT 97
[2021-08-12 23:53] VITALS: TEMP 36.6
== END 2021-08-12 23:58 | disposition home or self-care (01) ==
LOC: ER 23:46
PROVIDERS: Emergency Provider Emergency Medicine; PCP Family Medicine
DX: T83.098A Other mechanical complication of other urinary catheter, initial encounter (principal); N40.0 Benign prostatic hyperplasia without lower urinary tract symptoms
CPT/HCPCS: 51702; 99283; 87086; 99282

== ENCOUNTER 2021-08-14 16:20 | Emergency (ER) | payer MEDICARE, SELFPAY ==
[2021-08-14 16:27] VITALS: BP 133/65; PULSE 68; RESP 20; TEMP 36.3; O2SAT 99
--- NOTE | 2021-08-14 16:39 | W.ED.GENAD ---
Discharge Plan Disposition Patient Disposition: HOME Condition: Improving Discharge Details Clinical Impression: Complication, blocked Ochoa catheter Primary Care Provider: Avelino Caballero ED Provider: Kristy Corley Home Meds and New Rx's Prescriptions: Continued magnesium 200 mg tablet 400 mg PO DAILY 0RF potassium chloride 10 mEq tablet,ER particles/crystals 10 meq PO DAILY 0RF terazosin 2 MG capsule 10 mg PO HS 0RF simvastatin 20 MG tablet 20 mg PO HS 0RF finasteride 5 MG tablet 5 mg PO DAILY 0RF fluticasone propionate 50 mcg/actuation spray,suspension 1 spray intranasal DAILY 0RF Rx Instructions: administer into each nostril lisinopril 5 mg tablet 5 mg PO DAILY 0RF rosuvastatin 20 mg tablet 20 mg PO DAILY 0RF Label Comments: pt states not taking omeprazole 10 MG capsule,delayed release(DR/EC) 20 mg PO DAILY 0RF furosemide 20 MG tablet 20 mg PO 5XW 0RF sulfamethoxazole-trimethoprim 800-160 mg tablet 1 tab PO BID 0RF Label Comments: TAKE ONE TABLET BY MOUTH TWICE A DAY FOR URINE INFECTION oxybutynin chloride 5 mg tablet 5 mg PO DIRECTED 0RF Discharge Instructions Instructions: Ochoa Catheter Placement and Care (ED) Additional Instructions: Flush your catheter as directed by nursing staff here. Follow-up with your scheduled appointment with urology next week. Return immediately to the emergency department if you develop any worsening or new concerning symptoms. Referrals: Alan Fuentes MD [ [facility] STAFF PHYSICIAN] - Discharge Data Discharge Physician: Kristy Corley Medical Decision Making 76yo male with a history of BPH with Ochoa catheter in place for the past 5 days seen here now for the third time this week for concern for blocked catheter and urinary retention. On his first visit the catheter flushed with success. On his visit 2 days ago catheter was changed. He currently denies any symptoms but has only had 200 cc output since 2 PM today. Bladder scan 60 cc at bedside. Patient appears comfortable and nontoxic. Nursing was able to flush the catheter easily and draining clear fluid. His vitals are within normal limits and he appears comfortable. As he has no symptoms, do not feel indication for labs or imaging. His urine culture from his recent visit is still pending. He has a follow-up appointment with urology next Monday. Usual and customary return precautions given prior to discharge. Medical Records Medical records reviewed: Yes I reviewed the patient's medical records. HPI General Mode of arrival: ambulatory. Date/Time Provider Initiated Documentation: 08/14/21 16:30. Limitations to Documentation: no limitations. Information obtained by: patient. HPI Narrative: Patient is a 76-year-old male with a history of indwelling Ochoa catheter for the past [address] of the [place] for urinary retention presents for the third time this week for decreased urine output. On his first visit his catheter was able to be flushed and he was discharged home. On his second visit 2 days ago his catheter was changed. He states since 2 PM today he has noted only 200 cc output. He states he has no symptoms of pain, fever, or vomiting but wanted to come in before this evening if his urine output did not improve. He states his attempted to flush the catheter at home but without noted improvement in flow. Related Data Home Medications Medication Instructions Recorded Confirmed omeprazole 10 mg capsule,delayed 20 mg PO DAILY 01/20/15 08/14/21 release finasteride 5 mg tablet 5 mg PO DAILY tab-cap 08/28/15 08/14/21 simvastatin 20 mg tablet 20 mg PO HS tab-cap 08/28/15 08/14/21 terazosin 2 mg capsule 10 mg PO HS tab-cap 08/28/15 08/14/21 furosemide 20 mg tablet 20 mg PO 5XW 09/10/16 08/14/21 magnesium 200 mg tablet 400 mg PO DAILY tab 12/10/20 08/14/21 potassium chloride 10 mEq 10 meq PO DAILY 12/10/20 08/14/21 tablet,extended release(part/cryst) oxybutynin chloride 5 mg tablet 5 mg PO DIRECTED 08/11/21 08/14/21 sulfamethoxazole 800 1 tab PO BID 08/11/21 08/14/21 mg-trimethoprim 160 mg tablet fluticasone propionate 50 1 spray INTRANASAL DAILY 08/13/21 08/14/21 mcg/actuation nasal spray,suspension lisinopril 5 mg tablet 5 mg PO DAILY 08/13/21 08/14/21 rosuvastatin 20 mg tablet 20 mg PO DAILY 08/13/21 Allergies Allergy/AdvReac Type Severity Reaction Status Date / Time tamsulosin Allergy Verified 08/14/21 16:35 General Stated Complaint: Urinary JENNIFER: 3 Review of Systems All systems reviewed & are unremarkable except as noted in HPI and below Constitutional Constitutional: Denies chills, Denies excessive sweating, Denies fatigue, Denies fever(s), Denies weakness and Denies weight loss Eyes Eyes: Reports system reviewed and no additional complaints, except as documented and Denies blurry vision ENT Ears, Nose, Mouth, and Throat: Denies vertigo, Denies dizziness, Denies otalgia, Denies nasal congestion, Denies sore throat and Denies throat swelling Cardiovascular Cardiovascular: Denies chest pain, Denies syncope, Denies rapid heart rate and Denies dyspnea Respiratory Respiratory: Denies chest congestion, Denies cough, Denies pain on inspiration and Denies dyspnea Gastrointestinal Gastrointestinal: Denies abdominal pain, Denies diarrhea and Denies vomiting Genitourinary Genitourinary: Denies hematuria, Reports oliguria, Denies dysuria and Denies flank pain Musculoskeletal Musculoskeletal: Denies back pain and Denies joint swelling Integumentary/Breasts Skin/Breast: Denies lesions and Denies rash Neurologic Neurologic: Denies behavioral changes, Denies confusion, Denies vertigo, Denies dizziness, Denies syncope, Denies localized weakness and Denies weakness Psychiatric Psychiatric: Denies behavioral changes, Denies confusion and Denies depression Endocrine Endocrine: Denies excessive sweating and Denies fatigue Hematologic/Lymphatic Hematologic/Lymphatic: Denies easy bruising and Denies lymphadenopathy Allergic/Immunologic Allergic/Immunologic: Denies throat swelling PFSH All Active Problems (Updated 08/14/21 @ 17:13 by Kristy Corley DO) Complication, blocked Ochoa catheter (Acute) Femoral acetabular impingement (Acute) left hip Foreign body of knee, left, superficial (Acute) Spondylosis of lumbar region without myelopathy or radiculopathy (Chronic) Lumbar radicular pain (Chronic) Rotator cuff tear, right (Acute) Medical History (Updated 08/14/21 @ 17:13 by Kristy Corley DO) Acute deep vein thrombosis (DVT) of brachial vein of right upper extremity (11/11/15) Allergic rhinitis BPH (benign prostatic hyperplasia) CKD (chronic kidney disease) Complete tear of right rotator cuff (10/14/15) GERD HLD (hyperlipidemia) Hypertension NAFLD (nonalcoholic fatty liver disease) Right carpal tunnel syndrome (05/12/16) Seborrheic keratoses Spinal stenosis Spondylolisthesis at L4-L5 level (10/24/16) Surgical History Endoscopic Carpal Tunnel release (06/07/16) Repair of inguinal hernia Rotator Cuff Repair (09/03/15) Social History Smoking/Tobacco Use Status: Never Smoking risk assessment performed?: Yes Alcohol Intake: never Drug use: Never Substance use type: does not use Do you feel safe at home: Yes Do you feel safe in your relationship?: Yes Exam Const General: cooperative and healthy appearing Orientation: alert and awake HENMT Head: normal to inspection Ears: hearing grossly normal bilaterally, external ears normal and TM's normal bilaterally General nose exam: external nose normal Face and sinus: normal facial exam Mouth: oral mucosae normal Teeth and gingiva: dentition normal Throat: posterior oropharynx normal Eyes General: appearance normal, both eyes and all related structures Eyelids: eyelids normal Pupils: PERRL EOM: EOM intact bilaterally Neck Neck: normal visual inspection Lymphatic: no lymphadenopathy noted Chest Chest: normal inspection of the chest Resp Effort & Inspection: normal respiratory effort and able to speak in complete sentences Auscultation: clear to auscultation bilaterally Cardio Rate: regular rate Rhythm: regular rhythm GI Inspection: normal to inspection Palpation: soft, not firm, no guarding, no hepatosplenomegaly, no masses and nontender Auscultation: normal bowel sounds General: bladder abnormal Penis: normal penis Scrotum: scrotum normal Other: ochoa catheter in place. Back/Spine/Pelvis Back: no CVA tenderness Skin General skin exam: no rashes or lesions noted Neuro General: patient alert and patient awake Cognition: normal cognition Speech: speech normal Gait: normal gait Motor: muscle tone normal throughout Sensory Exam: no sensory deficits noted Extrem General: normal to inspection, full ROM and capillary refill normal Psych Appearance: grossly normal Mental Status: mental status grossly normal Speech and Movement: speech and movement normal Affect: normal affect Thought Process: normal Course Vital Signs Vital signs: Vital Signs Temperature 97.3 F L 08/14/21 16:27 Pulse 68 08/14/21 16:27 Respiratory Rate 20 08/14/21 16:27 Blood Pressure 133/65 08/14/21 16:27 Pulse Oximetry 99 08/14/21 16:27 Temperature 97.3 F L 08/14/21 16:27 Temperature Source Skin 08/14/21 16:27 Pulse 68 08/14/21 16:27 Respiratory Rate 20 08/14/21 16:27 Respiratory Effort 08/14/21 16:36 Blood Pressure 133/65 08/14/21 16:27 Pulse Oximetry 99 08/14/21 16:27 Oxygen Delivery Method Room Air 08/14/21 16:27 Oxygen Flow Rate 0 08/14/21 16:27 Pain Level 0 08/14/21 16:27
== END 2021-08-14 17:18 | disposition home or self-care (01) ==
PROVIDERS: Emergency Provider Physician Assistant; PCP Family Medicine
DX: T83.091A Other mechanical complication of indwelling urethral catheter, initial encounter (principal); R33.9 Retention of urine, unspecified
CPT/HCPCS: 99281; 99282

== ENCOUNTER → 2021-08-26 09:31 | Outpatient (BNVA) | payer MEDICARE, SELFPAY | PROVIDERS: PCP Family Medicine; Referring Provider Family Medicine; Visit Provider Urology | DX: R33.8 Other retention of urine (principal) | CPT/HCPCS: 99215; 99282 ==

== ENCOUNTER 2021-08-26 12:32 | Outpatient (REF) | payer MEDICARE, SELFPAY | END 2021-08-26 12:33 | disposition home or self-care (01) | LOC: LBN 12:32 | PROVIDERS: PCP Family Medicine; Visit Provider Urology | DX: T83.091A Other mechanical complication of indwelling urethral catheter, initial encounter (principal) | CPT/HCPCS: 87077; 87086; 87186 ==

== ENCOUNTER 2021-08-26 17:21 | Emergency (ER) | payer MEDICARE, SELFPAY ==
[2021-08-26 17:24] VITALS: BP 115/65; PULSE 105; RESP 18; TEMP 36.5; O2SAT 96
--- NOTE | 2021-08-26 17:55 | ED.GENADUL_ITS ---
Discharge Plan Disposition Patient Disposition: HOME Condition: Improving Discharge Details Clinical Impression: Complication, blocked Sapp catheter Primary Care Provider: Avelino Caballero ED Provider: Casey Aguilar Home Meds and New Rx's Prescriptions: Continued magnesium 200 mg tablet 400 mg PO DAILY 0RF potassium chloride 10 mEq tablet,ER particles/crystals 10 meq PO DAILY 0RF lisinopril 5 mg tablet 2.5 mg PO DAILY 0RF terazosin 2 MG capsule 10 mg PO HS 0RF finasteride 5 MG tablet 5 mg PO DAILY 0RF fluticasone propionate 50 mcg/actuation spray,suspension 1 spray intranasal DAILY 0RF Rx Instructions: administer into each nostril rosuvastatin 20 mg tablet 20 mg PO DAILY 0RF Label Comments: pt states not taking omeprazole 10 MG capsule,delayed release(DR/EC) 20 mg PO DAILY 0RF furosemide 20 MG tablet 20 mg PO 5XW 0RF sulfamethoxazole-trimethoprim 800-160 mg tablet 1 tab PO BID 0RF Label Comments: TAKE ONE TABLET BY MOUTH TWICE A DAY FOR URINE INFECTION oxybutynin chloride 5 mg tablet 5 mg PO DIRECTED 0RF Discharge Instructions Additional Instructions: Please continue to follow the instructions that were given to you by urology. Take your normally prescribed medication and keep your appointment for next week to follow-up with your urologist. If you have any new or significant worsening of condition, further lack of drainage from your catheter, or any concerns feel free to return to the emergency department or contact urology. Referrals: Alan Fuentes MD [ [facility] STAFF PHYSICIAN] - Medical Decision Making Patient presenting to the emergency department for chief complaint of Sapp catheter not draining. Patient has had catheter in for 4 weeks and states multiple complications with getting catheter to drain or becoming clogged. He states was able to remove a clot this afternoon but does not feel that any drainage has come out since she flushed it. Patient denies any other associated symptoms. Physical exam is unremarkable. Nursing staff did bladder scan and did not see any residual urine in the bladder. Bedside ultrasound was utilized and it was difficult to visualize the bladder leading me to suspect not a lot of urinary retention is occurring. Patient's Sapp was flushed and amount of irrigant instilled was easily drained out. Patient was observed for approximately 30 minutes after irrigation and patient did have noted urine and Sapp catheter tube. I do feel that this is reassuring and that patient is in no discomfort at this time. I feel that patient is safe for discharge to continue home care of Sapp catheter along with to irrigate if complications and to return if unable to unclog catheter as instructed by urology. After discussion of diagnosis and plan of care patient has no further needs, questions, or concerns and states clear understanding to return to the emergency department for any worsening symptoms. HPI General Mode of arrival: ambulatory . Date/Time Provider Initiated Documentation: 08/26/21 17:24 . Limitations to Documentation: no limitations . Information obtained by: patient and old records reviewed . History of Present Illness 76 year old M presents to the emergency department with the chief complaint of Urinary catheter problems-not draining, described as similar to prior episodes, Quality is described as other (Denies pain or discomfort), Patient started experiencing this hour(s) (2) and it has been constant. improves with No relieving factors improve symptom(s), No exacerbating factors reported . Patient notes no other symptoms.. Patient did receive the following treatments prior to arrival, other ( attempted to flush catheter and did remove single clot.) Related Data Home Medications Medication Instructions Recorded Confirmed omeprazole 10 mg capsule,delayed 20 mg PO DAILY 01/20/15 08/26/21 release finasteride 5 mg tablet 5 mg PO DAILY tab-cap 08/28/15 08/26/21 terazosin 2 mg capsule 10 mg PO HS tab-cap 08/28/15 08/26/21 furosemide 20 mg tablet 20 mg PO 5XW 09/10/16 08/26/21 magnesium 200 mg tablet 400 mg PO DAILY tab 12/10/20 08/26/21 potassium chloride 10 mEq 10 meq PO DAILY 12/10/20 08/26/21 tablet,extended release(part/cryst) oxybutynin chloride 5 mg tablet 5 mg PO DIRECTED 08/11/21 08/26/21 sulfamethoxazole 800 1 tab PO BID 08/11/21 08/26/21 mg-trimethoprim 160 mg tablet fluticasone propionate 50 1 spray INTRANASAL DAILY 08/13/21 08/26/21 mcg/actuation nasal spray,suspension rosuvastatin 20 mg tablet 20 mg PO DAILY 08/13/21 08/26/21 lisinopril 5 mg tablet 2.5 mg PO DAILY tab 08/26/21 08/26/21 Allergies Allergy/AdvReac Type Severity Reaction Status Date / Time tamsulosin Allergy Verified 08/26/21 17:30 General Stated Complaint: Urinary JENNIFER: 4 Review of Systems Constitutional Constitutional: Denies chills and Denies fever(s) Cardiovascular Cardiovascular: Denies chest pain Respiratory Respiratory: Reports system reviewed and no additional complaints, except as documented Gastrointestinal Gastrointestinal: Denies abdominal pain, Denies diarrhea, Denies nausea and Denies vomiting Genitourinary Genitourinary: Reports as per HPI, Denies hematuria, Denies difficulty urinating, Denies dysuria and Denies urinary urgency Musculoskeletal Musculoskeletal: Denies back pain Integumentary/Breasts Skin/Breast: Denies lesions, Denies rash, Denies skin ulcer and Denies sores Neurologic Neurologic: Denies confusion Psychiatric Psychiatric: Denies confusion PFSH All Active Problems (Updated 08/26/21 @ 18:15 by Casey Aguilar NP) Complication, blocked Sapp catheter (Acute) Femoral acetabular impingement (Acute) left hip Foreign body of knee, left, superficial (Acute) Spondylosis of lumbar region without myelopathy or radiculopathy (Chronic) Lumbar radicular pain (Chronic) Rotator cuff tear, right (Acute) Medical History (Updated 08/26/21 @ 18:15 by Casey Aguilar NP) Acute deep vein thrombosis (DVT) of brachial vein of right upper extremity (11/11/15) Allergic rhinitis BPH (benign prostatic hyperplasia) CKD (chronic kidney disease) Complete tear of right rotator cuff (10/14/15) GERD HLD (hyperlipidemia) Hypertension NAFLD (nonalcoholic fatty liver disease) Right carpal tunnel syndrome (05/12/16) Seborrheic keratoses Spinal stenosis Spondylolisthesis at L4-L5 level (10/24/16) Urinary retention Surgical History Endoscopic Carpal Tunnel release (06/07/16) Repair of inguinal hernia Rotator Cuff Repair (09/03/15) Social History Smoking/Tobacco Use Status: Never Smoking risk assessment performed?: Yes Alcohol Intake: never Drug use: Never Substance use type: does not use Do you feel safe at home: Yes Do you feel safe in your relationship?: Yes Exam Const General: cooperative and healthy appearing Orientation: alert, awake and oriented x3 Resp Effort & Inspection: normal respiratory effort and able to speak in complete sentences Cardio Rate: regular rate Rhythm: regular rhythm Heart Sounds: S1 normal and S2 normal GI Palpation: soft and nontender Auscultation: normal bowel sounds Male General Exam: Yes normal external exam and Yes other (Catheter in place) Neuro General: patient alert, patient awake, patient oriented x3, gait normal and tone normal Extrem General: capillary refill normal Course Vital Signs Vital signs: Vital Signs Temperature 36.5 C 08/26/21 17:24 Pulse 105 H 08/26/21 17:24 Respiratory Rate 18 08/26/21 17:24 Blood Pressure 115/65 08/26/21 17:24 Pulse Oximetry 96 08/26/21 17:24 Temperature 36.5 C 08/26/21 17:24 Temperature Source Temporal Artery Scan 08/26/21 17:24 Pulse 105 H 08/26/21 17:24 Respiratory Rate 18 08/26/21 17:24 Respiratory Effort Non-Labored 08/26/21 17:29 Blood Pressure 115/65 08/26/21 17:24 Blood Pressure Position Supine 08/26/21 17:24 Pulse Oximetry 96 08/26/21 17:24 Oxygen Delivery Method Room Air 08/26/21 17:24 Oxygen Flow Rate 0 08/26/21 17:24 Pain Level 5 08/26/21 17:24
== END 2021-08-26 18:31 | disposition home or self-care (01) ==
PROVIDERS: Emergency Provider Nurse Practitioner Family; PCP Family Medicine
DX: T83.098A Other mechanical complication of other urinary catheter, initial encounter (principal)
CPT/HCPCS: 99282

== ENCOUNTER 2021-08-27 00:24 | Emergency (ER) | payer MEDICARE, SELFPAY ==
[2021-08-27] VITALS (82 sets, daily range): BP systolic 100–121; BP diastolic 62–75; PULSE 64–100; RESP 20–22; TEMP 36.2; O2SAT 90–98
--- NOTE | 2021-08-27 00:37 | W.ED.GENAD ---
Discharge Plan Disposition Patient Disposition: HOME Condition: Good Discharge Details Clinical Impression: Nausea, Acute urticaria Primary Care Provider: Avelino Caballero ED Provider: Rosas Yeh Home Meds and New Rx's Prescriptions: New diphenhydramine HCl [Benadryl] 25 MG capsule 25 mg PO Q6H Qty: 20 0RF prednisone 50 MG tablet 50 mg PO DAILY Qty: 5 0RF Continued magnesium 200 mg tablet 400 mg PO DAILY 0RF potassium chloride 10 mEq tablet,ER particles/crystals 10 meq PO DAILY 0RF lisinopril 5 mg tablet 2.5 mg PO DAILY 0RF terazosin 2 MG capsule 10 mg PO HS 0RF finasteride 5 MG tablet 5 mg PO DAILY 0RF fluticasone propionate 50 mcg/actuation spray,suspension 1 spray intranasal DAILY 0RF Rx Instructions: administer into each nostril rosuvastatin 20 mg tablet 20 mg PO DAILY 0RF Label Comments: pt states not taking omeprazole 10 MG capsule,delayed release(DR/EC) 20 mg PO DAILY 0RF furosemide 20 MG tablet 20 mg PO 5XW 0RF sulfamethoxazole-trimethoprim 800-160 mg tablet 1 tab PO BID 0RF Label Comments: TAKE ONE TABLET BY MOUTH TWICE A DAY FOR URINE INFECTION oxybutynin chloride 5 mg tablet 5 mg PO DIRECTED 0RF Discharge Instructions Instructions: Urticaria (ED), Acute Nausea and Vomiting (ED) Additional Instructions: At this time your symptoms appear consistent with mild viral gastroenteritis. Please take the Zofran as needed for your nausea. Additionally please take the prednisone and Benadryl to help with the rash that you developed If you notice any worsening of your symptoms, or any new symptoms such as vomiting, diarrhea, fever, chills, shortness of breath, chest pain, numbness, weakness, or fainting , please return immediately to the emergency department for reevaluation. Please follow up with your primary care provider as soon as possible for reassessment and reevaluation. As always, it was a pleasure participating in your medical care today. . Referrals: Avelino Caballero [Primary Care Provider] - Medical Decision Making This is a 76-year-old male with past medical history of CKD, high cholesterol, nonalcoholic fatty liver disease, indwelling Sapp catheter, who presents today for evaluation of nausea and rash. Patient was recently in the emergency department when he had a clogged Sapp catheter. This was unclogged, no new Sapp was placed, the patient went home, ate some dinner, after which point he began to get very nauseous and felt like vomiting, and he noticed a rash over his abdomen and back. He came to the ER for further assessment. He denies any fever or chills. No new medications. He denies any history of allergy to lidocaine. No latex allergy that he is aware of. He denies having symptoms like this in the past. Denies any chest pain or shortness of breath. He denies any lesions in his mouth. His Sapp catheter has been draining well otherwise. No other complaints at this time. No other modifying factors. Physical exam demonstrates signs of the anterior abdomen, lower chest and back extending to the groin. No abdominal tenderness, no pain to McBurney's point, negative Chan sign. There has been a notable amount of gastroenteritis that has been present here in the community in the last 72 hours. I suspect this may be a component of his symptoms. Symptoms appear inconsistent with gallbladder pathology, acute appendicitis or obstruction. We will gently rehydrate, give Benadryl, Solu-Medrol, Pepcid for treatment of his rash, monitor closely and reassess. Uncertain as to why the rash occurred, may be just a histaminic reaction secondary to his nausea and suspected gastroenteritis. No clear historical answer to a potential causative agent. Symptoms at this time appear clinically inconsistent with anaphylaxis currently. No evidence of oral lesions or mucosal lesions. No respiratory difficulty. No diarrhea. No vomiting. 2:12 AM Laboratory work-up has returned, patient does have mildly elevated white count, but no bandemia. At this time with no fever, chills, tachycardia, or tender abdomen I suspect this is likely secondary to being a reactive leukocytosis likely secondary to his vomiting and rash which is reflective of his gastroenteritis that he is currently demonstrating. Electrolytes are stable, renal function stable. Lipase normal. Repeat exam demonstrates near complete resolution of the previous rash. All redness is gone, hives are notably diminished and almost completely absent. Patient has no itching whatsoever. No lesions on his mouth. Repeat abdominal exam continues to show no abdominal tenderness whatsoever. We did perform p.o. trial and the patient tolerated fluids well without any difficulty or complication after Zofran. Patient has had no vomiting here. With resolution of his rash, resolution of his nausea, I do feel that the patient is likely suffering from mild gastroenteritis does not show any clinical evidence at this time of acute concerning surgical abdominal pathology based on exam and clinical presentation currently. Patient stable for discharge. Will give steroids and Benadryl for home use, as well as a small bottle of Zofran. I did discuss very clearly with the patient importance of prompt return if he has any worsening of his symptoms or return of the symptoms. I have extensively reviewed the treatment plan and discharge instructions with the patient. I have addressed all patient concerns at this time. The patient was made aware of what symptoms to monitor for that would warrant a return to the emergency department. Discussed the plan with the patient, they demonstrate verbal understanding and agreement with our assessment and plan at this time. The documentation in this chart was dictated using [employer] dictation software. Please excuse any dictation errors. HPI General Date/Time Provider Initiated Documentation: 08/27/21 00:25. HPI Narrative: This is a 76-year-old male with past medical history of CKD, high cholesterol, nonalcoholic fatty liver disease, indwelling Sapp catheter, who presents today for evaluation of nausea and rash. Patient was recently in the emergency department when he had a clogged Sapp catheter. This was unclogged, no new Sapp was placed, the patient went home, ate some dinner, after which point he began to get very nauseous and felt like vomiting, and he noticed a rash over his abdomen and back. He came to the ER for further assessment. He denies any fever or chills. No new medications. He denies any history of allergy to lidocaine. No latex allergy that he is aware of. He denies having symptoms like this in the past. Denies any chest pain or shortness of breath. He denies any lesions in his mouth. His Sapp catheter has been draining well otherwise. No other complaints at this time. No other modifying factors. Related Data Home Medications Medication Instructions Recorded Confirmed omeprazole 10 mg capsule,delayed 20 mg PO DAILY 01/20/15 08/26/21 release finasteride 5 mg tablet 5 mg PO DAILY tab-cap 08/28/15 08/26/21 terazosin 2 mg capsule 10 mg PO HS tab-cap 08/28/15 08/26/21 furosemide 20 mg tablet 20 mg PO 5XW 09/10/16 08/26/21 magnesium 200 mg tablet 400 mg PO DAILY tab 12/10/20 08/26/21 potassium chloride 10 mEq 10 meq PO DAILY 12/10/20 08/26/21 tablet,extended release(part/cryst) oxybutynin chloride 5 mg tablet 5 mg PO DIRECTED 08/11/21 08/26/21 sulfamethoxazole 800 1 tab PO BID 08/11/21 08/26/21 mg-trimethoprim 160 mg tablet fluticasone propionate 50 1 spray INTRANASAL DAILY 08/13/21 08/26/21 mcg/actuation nasal spray,suspension rosuvastatin 20 mg tablet 20 mg PO DAILY 08/13/21 08/26/21 lisinopril 5 mg tablet 2.5 mg PO DAILY tab 08/26/21 08/26/21 diphenhydramine HCl 25 mg capsule 25 mg PO Q6H #20 cap 08/27/21 (Benadryl) prednisone 50 mg tablet 50 mg PO DAILY #5 tab 08/27/21 Previous Rx's Medication Instructions Recorded diphenhydramine HCl 25 mg capsule 25 mg PO Q6H #20 cap 08/27/21 (Benadryl) prednisone 50 mg tablet 50 mg PO DAILY #5 tab 08/27/21 Allergies Allergy/AdvReac Type Severity Reaction Status Date / Time tamsulosin Allergy Verified 08/26/21 17:30 General Stated Complaint: GenMedical JENNIFER: 2 Review of Systems All systems reviewed & are unremarkable except as noted in HPI and below PFSH All Active Problems (Updated 08/27/21 @ 01:40 by Rosas Yeh DO) Nausea (Acute) Acute urticaria (Acute) Complication, blocked Sapp catheter (Acute) Femoral acetabular impingement (Acute) left hip Foreign body of knee, left, superficial (Acute) Spondylosis of lumbar region without myelopathy or radiculopathy (Chronic) Lumbar radicular pain (Chronic) Rotator cuff tear, right (Acute) Medical History Acute deep vein thrombosis (DVT) of brachial vein of right upper extremity (11/11/15) Allergic rhinitis BPH (benign prostatic hyperplasia) CKD (chronic kidney disease) Complete tear of right rotator cuff (10/14/15) GERD HLD (hyperlipidemia) Hypertension NAFLD (nonalcoholic fatty liver disease) Right carpal tunnel syndrome (05/12/16) Seborrheic keratoses Spinal stenosis Spondylolisthesis at L4-L5 level (10/24/16) Urinary retention Surgical History Endoscopic Carpal Tunnel release (06/07/16) Repair of inguinal hernia Rotator Cuff Repair (09/03/15) Social History Smoking/Tobacco Use Status: Never Smoking risk assessment performed?: Yes Alcohol Intake: never Drug use: Never Substance use type: does not use Do you feel safe at home: Yes Do you feel safe in your relationship?: Yes Exam Narrative Exam Narrative: 1.Const: Well-nourished, Well-developed, appearing stated age 2.Eyes: PERRL, no conjunctival injection, and symmetrical lids. 3.ENT: Atraumatic external nose and ears. Moist MM. Neck: Symmetric, trachea midline, No thyromegaly. No lesions in the mouth or on the tongue. 4.CVS: +S1/S2, No murmurs or gallops. Peripheral pulses 2+ and equal in all extremities. Brisk capillary refill in all extremities. 5.RESP: Unlabored respiratory effort. Clear to auscultation bilaterally. No wheezes rales or rhonchi 6.GI: Soft, Nontender/Nondistended, No hepatosplenomegaly. No guarding or rebound. No pain at McBurney's point, negative Chan sign. 7.MSK: Normocephalic/Atraumatic, Extremities w/o deformity or ttp No cyanosis or clubbing, Normal movement of all extremities 8.Skin: Warm, Dry. Patient does demonstrate mild hives over his anterior abdomen, lower chest, and back. Minimal blanching present. Negative Nikolsky sign. No large vesicles or bulla. No palpable purpura. No oral lesions. No mucosal lesions. No evidence of severe cellulitis. No evidence of vaccine preventable rash. The lesions do go down towards the penis, but spare the penile organ itself. No evidence of mucosal lesions on the genitals 9.Neuro: safety and skill based pay manager II-XII grossly intact. Sensation grossly intact, no focal neurologic deficits. 10.Psych: (AAO) x3. Appropriate mood and affect Course Vital Signs Vital signs: Vital Signs Temperature 36.2 C L 08/27/21 00:28 Pulse 100 H 08/27/21 00:28 Respiratory Rate 22 08/27/21 00:28 Blood Pressure 114/63 08/27/21 00:28 Pulse Oximetry 94 08/27/21 00:28 Temperature 36.2 C L 08/27/21 00:28 Temperature Source Temporal Artery Scan 08/27/21 00:28 Pulse 100 H 08/27/21 00:28 Respiratory Rate 22 08/27/21 00:28 Blood Pressure 114/63 08/27/21 00:28 Blood Pressure Position Supine 08/27/21 00:28 Pulse Oximetry 94 08/27/21 00:28 Oxygen Delivery Method Room Air 08/27/21 00:28 Oxygen Flow Rate 0 08/27/21 00:28 Pain Level 6 08/27/21 00:28
[2021-08-27 00:50] LABS: Abs Immature Grans 0.05 10^3/uL (0.0-0.06); Absolute Basophil Count 0.03 10^3/uL (0.0-0.2); Absolute Eosinophil Count 0.03 10^3/uL (0.0-0.7); Absolute Lymphocyte Count 3.16 10^3/uL (1.2-3.4); Absolute Monocyte Count 0.73 10^3/uL (0.1-0.8); Absolute Neutrophil Count 10.69 10^3/uL (1.2-6.7); Basophils % 0.2; Eosinophils % 0.2; HCT 41.8 % (40.0-50.0); HGB 14.2 g/dL (13.5-17.5); Immature Grans % 0.3; Lymphocytes % 21.5; MCH 31.3 pg (27.0-33.0); MCV 92.1 fL (80-95); MPV 11.9 fL (8.0-11.0); Neutrophils % 72.8; Nucleated RBC 0 %; Platelet Count 144 10^3/uL (130-400); RBC 4.54 10^6/uL (4.36-5.78); RDW 11.5 % (11.8-14.1); RDW-SD 39.1 fL; WBC 14.69 10^3/uL (4.4-10.8)
[2021-08-27] MEDS: methylPREDNISolone SUCC 125 MG VIAL IVP (00:50)
[2021-08-27] MEDS: Normal Saline 500 ML IV (00:51)
[2021-08-27] MEDS: Ondansetron 4 MG/2 ML VIAL IVP ×2 (00:52→01:56)
[2021-08-27] MEDS: Famotidine 20 MG/2 ML VIAL IVP (00:52)
[2021-08-27] MEDS: diphenhydrAMINE 50 MG/ML VIAL 25 MG IVP (00:52)
[2021-08-27 01:20] LABS: ALT 23 U/L (16-63); AST 19 U/L (15-37); Albumin 3.8 g/dL (3.4-5.0); Alkaline Phosphatase 90 U/L (46-116); Anion Gap 9.3 mmol/L (3-11); BUN 37 mg/dL (7-18); Bilirubin, Total 1.1 mg/dL (0.2-1.0); CO2 25.7 mmol/L (21.0-32.0); Calcium 9.5 mg/dL (8.5-10.1); Chloride 100 mmol/L (98-107); Estimated GFR 32.56 (mL/min/1.73m2); Glucose 145 mg/dL (74-106); Lipase 45 U/L (73-393); Potassium 4.1 mmol/L (3.5-5.1); Sodium 135 mmol/L (136-145); Total Protein 7.2 g/dL (6.4-8.2)
[2021-08-27] MEDS: Ondansetron O.D.T. 4 MG TABEF, 3 TABS/BTL PO (01:57)
== END 2021-08-27 02:11 | disposition home or self-care (01) ==
PROVIDERS: Emergency Provider Student in an Organized Health Care Education/Training Program; PCP Family Medicine
DX: R11.0 Nausea (principal); L50.9 Urticaria, unspecified
CPT/HCPCS: 80053; 83690; 96361; 96374; 96375; 96376; 99284; 85025; 99283; J1200; J2405; J2930

== ENCOUNTER 2021-08-31 02:04 | Outpatient (CLI) | payer MEDICARE, SELFPAY ==
[2021-08-31 12:49] LABS: Source Nasal/Nares
[2021-08-31 16:06] LABS: COVID-19 PCR Negative (Negative)
== END 2021-08-31 02:05 | disposition home or self-care (01) ==
LOC: LBO 02:04
PROVIDERS: PCP Family Medicine; Visit Provider Urology
DX: Z20.822 Contact with and (suspected) exposure to COVID-19 (principal); Z01.818 Encounter for other preprocedural examination
CPT/HCPCS: 87635; U0005

== ENCOUNTER 2021-09-02 10:50 | Inpatient (IN) | payer MEDICARE, SELFPAY ==
[2021-09-02] VITALS (14 sets, daily range): BP systolic 96–147; BP diastolic 52–86; PULSE 56–85; RESP 15–25; TEMP 35.8–37.2; TEMPC 36.2; O2SAT 95–99; BMI 27.2
--- NOTE | 2021-09-02 06:52 | ANES.PREOP_ITS ---
General Info Date of Service Date Performed: 09/02/21 Height: 5 ft 10 in Weight: 86.1 kg Body Mass Index (BMI): 27.2 Surgical Procedure: Operation Date: 09/02/21 07:40 Proposed Procedure Side Surgeon p Cystoscopy w/TURP Alan Fuentes MD Meds Allergies and Home Medications Allergies Allergy/AdvReac Type Severity Reaction Status Date / Time tamsulosin Allergy Verified 09/02/21 06:37 Home Medication Medication Instructions Recorded omeprazole 10 mg capsule,delayed 20 mg PO DAILY 01/20/15 release finasteride 5 mg tablet 5 mg PO DAILY tab-cap 08/28/15 terazosin 2 mg capsule 10 mg PO HS tab-cap 08/28/15 furosemide 20 mg tablet 20 mg PO 5XW 09/10/16 magnesium 200 mg tablet 400 mg PO DAILY tab 12/10/20 potassium chloride 10 mEq 10 meq PO DAILY 12/10/20 tablet,extended release(part/cryst) oxybutynin chloride 5 mg tablet 5 mg PO DIRECTED 08/11/21 fluticasone propionate 50 1 spray INTRANASAL DAILY 08/13/21 mcg/actuation nasal spray,suspension rosuvastatin 20 mg tablet 20 mg PO DAILY 08/13/21 lisinopril 5 mg tablet 2.5 mg PO DAILY tab 08/26/21 diphenhydramine HCl 25 mg capsule 25 mg PO Q6H #20 cap 08/27/21 (Benadryl) prednisone 50 mg tablet 50 mg PO DAILY #5 tab 08/27/21 sulfamethoxazole 800 1 tab PO BID #10 tab 08/31/21 mg-trimethoprim 160 mg tablet (Bactrim DS) ondansetron HCl 4 mg tablet 4 mg PO Q6H PRN 09/02/21 Current Visit Medications: Current Medications Generic Name Dose Route Start Last Admin Trade Name Freq PRN Reason Stop Dose Admin Ringer's Solution 1,000 mls @ 80 mls/hr 09/02/21 06:00 IV 10/01/21 23:59 INFUSION LIZETH Cefazolin Sodium/Dextrose 2 gm in 50 mls @ 100 mls/hr 09/02/21 06:00 Ancef Duplex IVPB 09/02/21 16:00 PREOP LIZETH IV Miscellaneous Supplies 1 each 09/02/21 06:00 Iv Access IV 10/01/21 23:59 DIRECTED LIZETH Sodium Chloride 0 ml 09/02/21 06:00 Normal Saline Flush 10 Ml Syr IV 10/01/21 23:59 PRN PRN Sodium Chloride 0 ml 09/02/21 06:00 Normal Saline 10 Ml Vial IJ 10/01/21 23:59 DIRECTED PRN Sterile Water 0 ml 09/02/21 06:00 Water,Injection,Sterile 10 Ml Vial IJ 10/01/21 23:59 DIRECTED PRN PFSH Active Problems Active Problems: Problem Status Onset Code Nausea R11.0 Acute urticaria L50.8 Complication, blocked Sapp catheter T83.091A 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 Foreign body of knee, left, superficial S80.252A Spondylosis of lumbar region without myelopathy or radiculopathy M47.816 Lumbar radicular pain M54.16 Rotator cuff tear, right M75.101 Medical History Medical History Acute deep vein thrombosis (DVT) of brachial vein of right upper extremity (11/11/15) Allergic rhinitis BPH (benign prostatic hyperplasia) CKD (chronic kidney disease) Complete tear of right rotator cuff (10/14/15) GERD HLD (hyperlipidemia) Hypertension NAFLD (nonalcoholic fatty liver disease) Right carpal tunnel syndrome (05/12/16) Seborrheic keratoses Spinal stenosis Spondylolisthesis at L4-L5 level (10/24/16) Urinary retention Surgical History Surgical History Endoscopic Carpal Tunnel release (06/07/16) Repair of inguinal hernia Rotator Cuff Repair (09/03/15) Tobacco Smoking/Tobacco Use Status: Never Alcohol Alcohol Intake: never Substance Use Substance use: Never Substance use type: does not use Vital Signs and Lab Results Vital Signs Most Recent Vital Signs in EMR: Most Recent Vital Signs Temp Pulse Resp BP Pulse Ox 36.6 C 85 20 105/70 95 09/02/21 06:18 09/02/21 06:18 09/02/21 06:18 09/02/21 06:18 09/02/21 06:18 Lab Results Blood Type / Crossmatch: No Data to Display Complete Blood Count: White Blood Count 14.69 10^3/uL (4.4-10.8) H 08/27/21 00:44 08/27/21 Red Blood Count 4.54 10^6/uL (4.36-5.78) 08/27/21 00:44 08/27/21 Hemoglobin 14.2 g/dL (13.5-17.5) 08/27/21 00:44 08/27/21 Hematocrit 41.8 % (40.0-50.0) 08/27/21 00:44 08/27/21 Platelet Count 144 10^3/uL (130-400) 08/27/21 00:44 08/27/21 Complete Metabolic Panel: Sodium Level 135 mmol/L (136-145) L 08/27/21 00:44 08/27/21 Potassium Level 4.1 mmol/L (3.5-5.1) 08/27/21 00:44 08/27/21 Chloride Level 100 mmol/L (98-107) 08/27/21 00:44 08/27/21 Carbon Dioxide Level 25.7 mmol/L (21.0-32.0) 08/27/21 00:44 08/27/21 Blood Urea Nitrogen 37 mg/dL (7-18) H 08/27/21 00:44 08/27/21 Creatinine 2.0 mg/dL (0.70-1.30) H 08/27/21 00:44 08/27/21 Estimated GFR/1.73 m2 32.56 (mL/min/1.73m2) 08/27/21 00:44 08/27/21 Calcium Level 9.5 mg/dL (8.5-10.1) 08/27/21 00:44 08/27/21 Albumin 3.8 g/dL (3.4-5.0) 08/27/21 00:44 08/27/21 Glucose Level 145 mg/dL (74-106) H 08/27/21 00:44 08/27/21 Liver Function Panel: Alanine Aminotransferase (ALT/SGPT) 23 U/L (16-63) 08/27/21 00:44 08/27/21 Aspartate Amino Transf (AST/SGOT) 19 U/L (15-37) 08/27/21 00:44 08/27/21 Coagulation Panel: No Data to Display Cardiac Panel: No Data to Display Arterial Blood Gas: No Data to Display Venous Blood Gas: No Data to Display Pancreas Panel: Lipase 45 U/L (73-393) 08/27/21 00:44 08/27/21 Thyroid Panel: No Data to Display Infectious Disease: Coronavirus (COVID-19)(PCR) Negative (Negative) 08/31/21 08:49 08/31/21 Coronavirus 2019 Source Nasal/Nares 08/31/21 08:49 08/31/21 Blood Cultures: No Data to Display Toxicology Panel: No Data to Display Imaging and Studies Imaging and Studies Study information below may be from another EMR and interpreted by another provider. Please see original notes in EMR for more complete details. Echocardiogram Summary: Conclusion Normal left ventricular wall thickness and chamber size. Estimated ejection fraction is 60%. There are no segmental wall motion abnormalities Normal right ventricular size and systolic function Both atria are normal in size There are no structural valvular abnormalities Mild to moderate mitral and tricuspid regurgitation. 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 09/18/20 Anesthesia Assessment and Plan Anesthesia History Personal History: No History of Anesthesia Complications Family History: No Family History of Anesthesia Complications Exercise Tolerance Exercise Tolerance: Metabolic Equivalents>4 Pertinent Negatives Pertinent Negatives: No Symptoms of GERD, No Major Cardiovascular Symptoms or Complaints, No Major Pulmonary Symptoms or Complaints, No History of CVA/TIA and Other (Ganado palsy left side of face) Cardiac & Pulmonary Exam Cardiac Exam: Normal S1/S2 Heart Sounds Pulmonary Exam: Clear Bilateral Breath Sounds Implantable Cardiac Device Does patient have a Pacemaker or an ICD?: No Airway Exam Known Difficult Airway: No Mallampati Class: 3 Mouth Opening: Narrow (< 3cm) Thyromental Distance: Greater than 3 cm Neck Range of Motion: Full ROM Neck Circumference: Normal Teeth Condition: Generalized Poor Dentition ASA Classification ASA Score: ASA 3 Emergency Case?: No NPO Status NPO Status: NPO Clears >2 hours, Solids >8 hours Anesthesia Plan Resuscitation Status: Full Code Anesthesia Technique: General Anesthesia Airway Planned: LMA Monitors Used: Standard Monitors
[2021-09-02] MEDS: Lactated Ringers 1,000 ML 80 ML IV ×3 (07:40→20:09)
--- NOTE | 2021-09-02 09:03 | HPE_ITS ---
Date of service: 09/02/21 Time of Service: 09:03 Assessment and Plan Assessment and plan (1) Urinary retention: Assessment and plan: He has failed maximal medical therapy. After discussing multiple treatment options, he is interested in pursuing a cystoscopy and transurethral resection of the prostate. We discussed multiple potential complications including bleeding, infection and bladder neck contractures. We also discussed the likelihood of retrograde ejaculation following the procedure should the patient be sexually active. History of Present Illness History of Present Illness Chief Complaint: Urinary retention Narrative: This is a 76 year old gentleman who has a history of lower urinary tract symp toms.? About 5 years ago, he developed urinary retention.? He was started on a combination of a 5 alpha reductase inhibitor and an alpha-kelly.? He was taught to perform CIC.? He was able to void on his own and continued for years with finasteride 5 mg daily and Terazosin 10 mg daily. About 3 weeks ago, he began having an inability to empty his bladder and discoloration of the urine.? He began performing CIC.? He had a video conference with the providers at the [facility] and he was started on Bactrim.? A urine sample or culture was not obtained at that time.? The antibiotic was star anjelica based on the appearance of the urine. He began having more difficulty passing the catheter, so he had an indwelling catheter placed at the office of a [place] provider in [facility].? That catheter was placed on August 08. Since that time, he has had multiple emergency room visits for catheter occlusion.? On at least one occasion the catheter was changed.? His was sent home with catheter irrigation supplies. He was then referred to a urologist over in [place], [place].? Plans were made for a cystoscopy with voiding trial.? The cystoscopy was never scheduled.? He did have a voiding trial in the office, but the catheter was replaced when he was unable to void. He is becoming more and more frustrated and he comes in to attempt to receive urologic care closer to home (he lives in [place]). He has not had blood in his urine other than with catheterization.? He tells me that he had a physical examination with his PCP back in May and his urinalysis at that time was normal. He was not on any qnxx-cyz-tcyxzew anticholinergic medications prior to developing retention.? He was not having constipation before the retention occurred. He has no known history of kidney stones.? He has not had any previous urologic surgeries. Review of Systems Narrative: No fevers or chills [place] palsy with facial droop. No vision change or dysphasia No diabetes or thyroid dysfunction No shortness of breath, cough or hemoptysis No chest pain or palpitations No nausea, vomiting, hepatitis, ulcers, jaundice No seizures, strokes or peripheral neuropathy No bleeding disorders or anemia Chronic back pain. No gout PFSH All Active Problems Nausea (Acute) Acute urticaria (Acute) Complication, blocked Sapp catheter (Acute) Femoral acetabular impingement (Acute) left hip Foreign body of knee, left, superficial (Acute) Spondylosis of lumbar region without myelopathy or radiculopathy (Chronic) Lumbar radicular pain (Chronic) Rotator cuff tear, right (Acute) Medical History Acute deep vein thrombosis (DVT) of brachial vein of right upper extremity (11/11/15) Allergic rhinitis BPH (benign prostatic hyperplasia) CKD (chronic kidney disease) Complete tear of right rotator cuff (10/14/15) GERD HLD (hyperlipidemia) Hypertension NAFLD (nonalcoholic fatty liver disease) Right carpal tunnel syndrome (05/12/16) Seborrheic keratoses Spinal stenosis Spondylolisthesis at L4-L5 level (10/24/16) Urinary retention Surgical History Endoscopic Carpal Tunnel release (06/07/16) Repair of inguinal hernia Rotator Cuff Repair (09/03/15) Social History Smoking/Tobacco Use Status: Never Smoking risk assessment performed?: Yes Alcohol Intake: never Drug use: Never Substance use type: does not use Do you feel safe at home: Yes Do you feel safe in your relationship?: Yes Meds Allergies and Home Medications Allergies Allergy/AdvReac Type Severity Reaction Status Date / Time tamsulosin Allergy Verified 09/02/21 06:37 Home Medications Medication Instructions Recorded Confirmed Type omeprazole 10 mg capsule,delayed 20 mg PO DAILY 01/20/15 09/02/21 History release finasteride 5 mg tablet 5 mg PO DAILY tab-cap 08/28/15 09/02/21 History terazosin 2 mg capsule 10 mg PO HS tab-cap 08/28/15 09/02/21 History furosemide 20 mg tablet 20 mg PO 5XW 09/10/16 09/02/21 History magnesium 200 mg tablet 400 mg PO DAILY tab 12/10/20 09/02/21 History potassium chloride 10 mEq 10 meq PO DAILY 12/10/20 09/02/21 History tablet,extended release(part/cryst) oxybutynin chloride 5 mg tablet 5 mg PO DIRECTED 08/11/21 09/02/21 History fluticasone propionate 50 1 spray INTRANASAL DAILY 08/13/21 09/02/21 History mcg/actuation nasal spray,suspension rosuvastatin 20 mg tablet 20 mg PO DAILY 08/13/21 09/02/21 History lisinopril 5 mg tablet 2.5 mg PO DAILY tab 08/26/21 09/02/21 History diphenhydramine HCl 25 mg capsule 25 mg PO Q6H #20 cap 08/27/21 09/02/21 Rx (Benadryl) prednisone 50 mg tablet 50 mg PO DAILY #5 tab 08/27/21 09/02/21 Rx sulfamethoxazole 800 1 tab PO BID #10 tab 08/31/21 09/02/21 Rx mg-trimethoprim 160 mg tablet (Bactrim DS) ondansetron HCl 4 mg tablet 4 mg PO Q6H PRN 09/02/21 09/02/21 History Exam Const General: cooperative, comfortable and no acute distress Neck Neck: supple Resp Effort & Inspection: normal respiratory effort Auscultation: clear to auscultation bilaterally Cardio Rate: regular rate Rhythm: regular rhythm GI Palpation: soft and no masses Penis: other (catheter in place) Neuro General: patient alert, patient awake, patient oriented x3 and focal motor deficits present Extrem General: edema (lower extremities) Results Last Vital Signs Temp 36.6 C 09/02/21 06:18 Pulse 85 09/02/21 06:18 Resp 20 09/02/21 06:18 BP 105/70 09/02/21 06:18 Pulse Ox 95 09/02/21 06:18
[2021-09-02] MEDS: ceFAZolin 2 GM/50 ML BAG IVPB (09:49)
[2021-09-02] MEDS: Lidocaine 2% Jelly 6 ML SYR (10:00)
--- NOTE | 2021-09-02 10:45 | PROST_PTH ---
PATIENT: Allen Leon LOC: U#:[id number] AGE/SX: 76/M ROOM: [id number] RE09/02/[address]: Alan Fuentes MD : [id number] BED: A DIS: 09/04/2021 SPEC #: [id number] RECD: 09/02/21 12:49 STATUS: SOUT REQ #: [id number] IVY: 09/02/21 10:[address]: Alan Fuentes DEPT: Surgical Specimen RECD BY: Amaya Hernandez ENTERED: 09/02/21 12:50 SP TYPE: PROST OTHR DR: Avelino Caballero Tissues: 1 - PROSTATE CURRETTINGS Procedures: GROSS AND MICRO LEVEL 4 Comments: [id number]
--- NOTE | 2021-09-02 11:00 | W.PM.OP ---
Date of service: 09/02/21 Time of Service: 11:01 Operative Note Operative Note DATE OF PROCEDURE: 09/02/21 PRE-OP DIAGNOSIS: Urinary retention POST-OP DIAGNOSIS: same PROCEDURE: Cystoscopy, transurethral resection of prostate SURGEON: Alan Fuentes ANESTHESIA TYPE: General LMA/ETT Refer to Anesthesia Record ESTIMATED BLOOD LOSS: 250 PATHOLOGY: other (prostate chips) COMPLICATIONS: None Patient was transported to: PACU Patient's condition: stable Implants: 22 Egyptian hematuria catheter with 50 cc sterile water in balloon Indications: This is a 76 year old gentleman who developed urinary retention. He has failed maximal medical therapy. He presents for transurethral resection of his prostate. Findings: No bladder lesion Lateral lobe enlargement of the prostate No significant median lobe of the prostate Procedure Description: The patient was brought to the operating room on 09/02/2021. He was given preoperative IV antibiotics. After successful induction of general anesthesia, he was placed in the dorsal lithotomy position. His indwelling catheter was removed. His genitalia was prepped and draped. 2% Xylocaine jelly was instilled into the urethra. A 22 Egyptian rigid cystoscope was passed through the urethra into the bladder. The urethra and bladder were inspected with 30 degree lens. The pendulous, bulbar and membranous urethra's appeared normal with no stricture. The prostatic urethra showed lateral lobe enlargement but no significant median lobe. The bladder neck was entered and the bladder mucosa was inspected. Both ureteral orifices appeared normal. The bladder mucosa was hemorrhagic consistent with catheter cystitis. No papillary or nodular lesions were seen. The cystoscope was then withdrawn and a 24 Egyptian resectoscope sheath was passed through the urethra into the bladder. Transurethral resection of the prostate was performed using bipolar cautery and an EZ-Apps resectoscope. All resected tissue was evacuated and sent to pathology for permanent section. We then switched over to the vaporization ball and vaporized the prostatic tissue back to the level of the capsule. The extent of the resection was from the bladder neck out to the verumontanum. At the completion of the procedure, the bladder was filled with irrigant. The resectoscope was removed. A 22 Egyptian hematuria catheter was then passed through the urethra into the bladder. The catheter balloon was inflated with 50 cc of sterile water. Traction was placed on the catheter and continuous bladder irrigation was begun. Hand irrigation of the catheter was continued until the irrigant became clear. The catheter was then hooked to gravity drainage. A belladonna and opium suppository was then instilled to help with postop bladder spasms. The patient tolerated this procedure well with no complications.
[2021-09-02] MEDS: fentaNYL 100 MCG/2 ML VIAL IVP ×3 (11:25→11:50)
--- NOTE | 2021-09-02 11:58 | W.ANESPOSTOP ---
Postoperative Evaluation Date, Time and Location Date Performed: 09/02/21 Time Performed: 11:59 Patient Location: PACU Vital Signs Most Recent Imported Vital Signs: Most Recent Vital Signs Temp Pulse Resp BP Pulse Ox 36.4 C L 64 25 H 96/74 L 97 09/02/21 11:50 09/02/21 11:50 09/02/21 11:50 09/02/21 11:50 09/02/21 11:50 Most Recent Manually Entered Vital Signs: Adult Blood Pressure: 134/57 Heart Rate: 67 Respirations: 18 Oxygen Saturation (%): 98 Temperature (C): 36.2 C Pain Score (0-10 Scale): 4 Pain Score Most Recent Pain Score: Most Recent Pain Score Pain Level 7 09/02/21 11:50 Assessment Mental Status: Awake (Alert & Oriented to Patient Baseline) Airway and Respiratory Function: Patent airway with normal (patient baseline) respiratory exam Cardiovascular Function: Hemodynamically Stable Hydration Status: Adequately Hydrated Nausea & Vomiting: No Nausea or Vomiting Pain: Pain is tolerable per patient Peripheral Nerve Block: Patient did not receive a nerve block
[2021-09-02] MEDS: traMADol 50 MG TAB PO ×2 (15:05→22:00)
[2021-09-02] MEDS: ceFAZolin 1 GM/50 ML BAG IVPB (17:30)
[2021-09-02] MEDS: Acetaminophen 325 MG TAB 650 MG PO (17:36)
[2021-09-02] MEDS: Docusate Sodium 100 MG CAP PO (19:09)
[2021-09-03] MEDS: ceFAZolin 1 GM/50 ML BAG IVPB (02:32)
[2021-09-03 03:45] VITALS: BP 103/62; PULSE 57; RESP 16; TEMP 36.3; O2SAT 96
[2021-09-03 06:09] VITALS: BP 108/63; PULSE 51; RESP 14; TEMP 36.3; O2SAT 97
[2021-09-03] MEDS: Lactated Ringers 1,000 ML 80 ML IV (06:42)
[2021-09-03 06:43] LABS: Abs Immature Grans 0.15 10^3/uL (0.0-0.06); Absolute Basophil Count 0.03 10^3/uL (0.0-0.2); Absolute Eosinophil Count 0.39 10^3/uL (0.0-0.7); Absolute Monocyte Count 0.88 10^3/uL (0.1-0.8); Absolute Neutrophil Count 6.53 10^3/uL (1.2-6.7); Basophils % 0.2; Eosinophils % 3.1; HCT 33.4 % (40.0-50.0); HGB 11.1 g/dL (13.5-17.5); Immature Grans % 1.2; Lymphocytes % 36.6; MCH 31.1 pg (27.0-33.0); MCHC 33.2 % (32.0-36.0); MCV 93.6 fL (80-95); MPV 12.2 fL (8.0-11.0); Neutrophils % 51.9; Nucleated RBC 0 %; Platelet Count 113 10^3/uL (130-400); RBC 3.57 10^6/uL (4.36-5.78); RDW 11.6 % (11.8-14.1); RDW-SD 39.7 fL; WBC 12.58 10^3/uL (4.4-10.8)
[2021-09-03 06:48] LABS: Anion Gap 5.3 mmol/L (3-11); BUN 34 mg/dL (7-18); CO2 28.7 mmol/L (21.0-32.0); CREATININE 1.7 mg/dL (0.70-1.30); Calcium 8.1 mg/dL (8.5-10.1); Chloride 103 mmol/L (98-107); Estimated GFR 39.28 (mL/min/1.73m2); Glucose 97 mg/dL (74-106); Potassium 4.1 mmol/L (3.5-5.1); Sodium 137 mmol/L (136-145)
[2021-09-03] MEDS: Docusate Sodium 100 MG CAP PO ×2 (07:32→19:45)
--- NOTE | 2021-09-03 07:46 | W.PM.PROGNOT ---
Date of Service Date of service: 09/03/21 Time of Service: 07:46 Assessment and Plan Assessment and plan (1) Urinary retention: Assessment and plan: Since he is tolerating oral nutrition, I think we can go ahead and discontinue his IV fluid and IV antibiotics. I will switch him back to p.o. Bactrim based on his preop urine culture and sensitivity. We will continue his bladder irrigation for 1 more day. I would expect that he will be ready for discharge tomorrow. We may actually be able to remove his Sapp catheter before discharge tomorrow morning. Subjective Subjective Interval history since last seen: He had oral intake quite well with no nausea or vomiting. He does continue to have bladder spasms. Exam Narrative Exam Narrative: He looks comfortable at this time. His vital signs are documented elsewhere His abdomen is soft with no guarding or rebound tenderness His urine is light pink with continuous bladder irrigation He is awake and alert Objective Last Vital Signs Temp 36.3 C L 09/03/21 06:09 Pulse 51 L 09/03/21 06:09 Resp 14 09/03/21 06:09 BP 108/63 09/03/21 06:09 Pulse Ox 97 09/03/21 06:09 Laboratory Results - last 24 hr 09/03/21 09/03/21 06:15 06:15 WBC 12.58 H RBC 3.57 L Hgb 11.1 L Hct 33.4 L MCV 93.6 MCH 31.1 MCHC 33.2 RDW 11.6 L Plt Count 113 L MPV 12.2 H Immature Gran % 1.2 Neutrophils % 51.9 Lymphocytes % 36.6 Monocytes % 7.0 Eosinophils % 3.1 Basophils % 0.2 Nucleated RBC % 0 Absolute Neutrophils 6.53 Absolute Lymphocytes 4.60 H Absolute Monocytes 0.88 H Absolute Eosinophils 0.39 Absolute Basophils 0.03 Sodium 137 Potassium 4.1 Chloride 103 Carbon Dioxide 28.7 Anion Gap 5.3 BUN 34 H Creatinine 1.7 H Estimated GFR/1.73 m2 39.28 Glucose 97 Calcium 8.1 L
[2021-09-03] MEDS: Sulfameth/Trimeth DS TAB 1 TAB PO ×2 (08:52→19:45)
[2021-09-03] MEDS: Milk of Magnesia 30 ML CUP PO ×2 (10:07→23:26)
--- NOTE | 2021-09-03 10:23 | PDOC.CMIN ---
- If Service Date Differs Date of service: 09/03/21 Time of Service: 10:23 Care Management Initial Assess REASON FOR HOSPITALIZATION:: Urinary Retention PAST MEDICAL HISTORY/PAST SURGICAL HISTORY:: All Active Problems . Nausea (Acute). Acute urticaria (Acute). Complication, blocked Sapp catheter (Acute). Femoral acetabular impingement (Acute). left hip. Foreign body of knee, left, superficial (Acute). Spondylosis of lumbar region without myelopathy or radiculopathy (Chronic). Lumbar radicular pain (Chronic). Rotator cuff tear, right (Acute). Medical History . Acute deep vein thrombosis (DVT) of brachial vein of right upper extremity (11/11/15). Allergic rhinitis. BPH (benign prostatic hyperplasia). CKD (chronic kidney disease). Complete tear of right rotator cuff (10/14/15). GERD. HLD (hyperlipidemia). Hypertension. NAFLD (nonalcoholic fatty liver disease). Right carpal tunnel syndrome (05/12/16). Seborrheic keratoses. Spinal stenosis. Spondylolisthesis at L4-L5 level (10/24/16). Urinary retention. Surgical History . Endoscopic Carpal Tunnel release (06/07/16). Repair of inguinal hernia. Rotator Cuff Repair (09/03/15) PREVIOUS FUNCTIONAL STATUS/SOCIAL/FAMILY SUPPORTS:: Avelino lives in [place] with his Josefina. 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 He is independent at baseline and drives. CURRENT FUNCTIONAL STATUS:: Allen was lying in bed visiting with his when CM met with him. He was alert, oriented and easily engaged in conversation. His daughter in law is traveling to the area to help him when he is discharged. Allen shares that he's had a hard month healthwise and [facility]. He is happy with the care he is receiving from Dr. Fuentes. ADVANCE DIRECTIVES:: None on file. Has patient been provided with info about the portal/API?: Yes Did the patient sign up for the portal?: No CODE STATUS:: Full Code INSURANCE COVERAGE / FINANCIAL ISSUES:: AARP. Medicare CURRENT HOME/COMMUNITY SERVICES/EQUIPMENT:: Allen uses a walker and cane-PRN PRIMARY CARE PHYSICIAN:: [facility] POTENTIAL DISCHARGE NEEDS:: Referral to [facility] for nursing services. Urology and PCP follow up appointment PATIENT/FAMILY EDUCATION NEEDS:: Review discharge instructions, limitations, medications and plan to follow up with community providers. Ask me three. TRANSPORTATION:: Via private vehicle with . PLAN:: Anticipate Allen will discharge home with New [facility] RN when medically ready. He will need follow up appointments with Urology and his PCP. will continue to support Allen and his discharge planning needs.
[2021-09-03] MEDS: Omeprazole 20 MG CAPCR PO (15:37)
[2021-09-03 15:40] VITALS: BP 118/68; PULSE 63; RESP 15; TEMP 36.9; O2SAT 95
--- NOTE | 2021-09-03 16:58 | CHAPLAIN ---
Allen remembered that we had met when his was admitted here for hip surgery a few years ago. He usually gets his care from [facility] or the [place] but his PCP at [facility] sent him to see Dr. Fuentes so he could be seen more quickly, and Allen really likes Dr. Fuentes. 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 He expects his to visit this afternoon.
[2021-09-03] MEDS: traMADol 50 MG TAB PO (19:50)
[2021-09-03 23:05] VITALS: BP 112/67; PULSE 64; RESP 15; TEMP 36.5; O2SAT 96
[2021-09-04 06:21] VITALS: BP 113/63; PULSE 63; RESP 18; TEMP 36.2; O2SAT 96
[2021-09-04] MEDS: Omeprazole 20 MG CAPCR PO (06:31)
--- NOTE | 2021-09-04 09:38 | W.PM.DS.N ---
Date of service: 09/04/21 Time of Service: 09:39 DS: Diagnosis Discharge Diagnosis (1) Urinary retention: Discharge Plan Disposition Patient Disposition: HOME Condition: Stable Discharge Details Reason For Visit: Urinary Retention Admit Date/Time: 09/02/21 10:50 Admit Provider: Alan Fuentes Attending Provider: Alan Fuentes Primary Care Provider: Avelino Caballero [facility] Course Hospital Course: The patient was admitted and brought to the operating room on 09/02/2021. He underwent a transurethral resection of the prostate. The procedure itself was done under general anesthesia and was uneventful. During the postoperative period, an irrigating catheter was maintained and continuous bladder irrigation was utilized to keep his catheter output clot free. On postoperative day #1, he will was able to tolerate oral medications. His blood work appeared appropriate on postoperative day #1. We continued the bladder irrigation for 1 additional day. The bladder irrigation is discontinued on postoperative day #1 and the patient is being discharged to home with his catheter in place. Home Meds and New Rx's Prescriptions: Continued magnesium 200 mg tablet 400 mg PO DAILY 0RF potassium chloride 10 mEq tablet,ER particles/crystals 10 meq PO DAILY 0RF lisinopril 5 mg tablet 2.5 mg PO DAILY 0RF finasteride 5 MG tablet 5 mg PO DAILY 0RF fluticasone propionate 50 mcg/actuation spray,suspension 1 spray intranasal DAILY 0RF Rx Instructions: administer into each nostril rosuvastatin 20 mg tablet 20 mg PO DAILY 0RF Label Comments: pt states not taking sulfamethoxazole-trimethoprim [Bactrim DS] 800-160 mg tablet 1 tab PO BID Qty: 10 0RF omeprazole 10 MG capsule,delayed release(DR/EC) 20 mg PO DAILY 0RF ondansetron HCl 4 mg tablet 4 mg PO Q6H PRN0RF Label Comments: TAKE ONE TABLET BY MOUTH THREE TIMES A DAY FOR 5 DAYS NEEDED FOR NAUSEA AND VOMITIING furosemide 20 MG tablet 20 mg PO 5XW 0RF diphenhydramine HCl [Benadryl] 25 MG capsule 25 mg PO Q6H Qty: 20 0RF prednisone 50 MG tablet 50 mg PO DAILY Qty: 5 0RF Discontinued terazosin 2 MG capsule 10 mg PO HS 0RF oxybutynin chloride 5 mg tablet 5 mg PO DIRECTED 0RF Discharge Instructions Additional Instructions: Apply a plug to the catheter irrigation port. The drainage port can be hooked to either a leg bag or to a large overnight drainage bag. Please instruct the patient and his family on the care of each. The patient no longer needs to take the Terazosin. I have also asked that he not use the oxybutynin as it can cause difficulty emptying the bladder when we remove his catheter next week. He should resume all of his other medications. I have not sent in any new prescriptions for him. He should drink plenty of fluid in order to keep the urine output transparent. It is quite normal for there to be a red or pink tint to the urine as long as we can see through the urine in the tubing. The patient should take an fcbx-wkz-iifnhrb stool softener to help with his bowels. He should also take [id number]-qjm-gtpnsvc MiraLAX once a day (based on the package instructions) until his bowels begin to move. Then the MiraLAX can be used just as needed. Walking is actually encouraged. It is perfectly okay to go up and down stairs. There are no dietary restrictions at this time The patient will be contacted by my office on Monday. We will arrange for a time for him to come into the office on Monday or Monday to have his catheter removed. The office is not open over the weekend, so we are unable to give him an exact time right now. Stand Alone Forms: Nursing Discharge Form Activity:: No straining or lifting a Equipment/Supplies:: Sapp to drainage bag jillian Diet:: As Tolerated Discharge Orders Discharge Orders: Discharge Order (Routine); Ordered 09/04/21 Ordered By: Alan Fuentes DS: Summary Time Spent with Patient providing and/or coordinating discharge services: Less than 30 minutes Status at Discharge Functional status at discharge: independent ambulation Overall status at discharge: patient is back to baseline Mental Status: mental status grossly normal Speech and Movement: speech and movement normal Mood: congruent mood Affect: normal affect Exam Narrative Exam Narrative: At the time of this charge, he looks comfortable. He does not appear septic or toxic His vital signs are documented elsewhere His lungs are clear His cardiac exam shows a regular rate and rhythm His abdomen is soft and nontender His urine output is pink but transparent with no bladder irrigation He is awake and alert Psych Mental Status: mental status grossly normal Speech and Movement: speech and movement normal Mood: congruent mood Affect: normal affect DS: Data Vitals/I&O Vitals and I&O: Vital Signs Temperature 36.2 C L 09/04/21 06:21 Temperature Source Tympanic 09/04/21 06:21 Pulse 63 09/04/21 06:21 Pulse Rhythm Regular 09/03/21 19:51 Respiratory Rate 18 09/04/21 06:21 Respiratory Effort Non-Labored 09/03/21 19:51 Respiratory Depth Normal 09/03/21 19:51 Respiratory Pattern Normal 09/03/21 19:51 Blood Pressure 113/63 09/04/21 06:21 Pulse Oximetry 96 09/04/21 06:21 Respiratory End-tidal CO2 25 09/02/21 12:20 Oxygen Delivery Method Room Air 09/04/21 06:21 Oxygen Flow Rate 0 09/04/21 06:21 Pain Level 3 09/04/21 06:21 Intake & Output 09/03/21 09/03/21 09/04/21 11:59 23:59 11:59 Intake Total 1520 / 2060 540 / 2060 300 / 300 Output Total 1100 / 7100 6000 / 7100 1999 Balance 420 / -5040 -5460 / -5040 -1700 / -1700 Intake: IV 940 / 940 Oral 580 / 1120 540 / 1120 300 / 300 Output: Urine 1100 / 7100 6000 / 7100 1999 Other: Urine Color [place] Dark Red Bright Red Urine Appearance Clear Clear Comment patient on continuous bladder irrigation PFSH All Active Problems Nausea (Acute) Acute urticaria (Acute) Complication, blocked Sapp catheter (Acute) Femoral acetabular impingement (Acute) left hip Foreign body of knee, left, superficial (Acute) Spondylosis of lumbar region without myelopathy or radiculopathy (Chronic) Lumbar radicular pain (Chronic) Rotator cuff tear, right (Acute) Medical History Acute deep vein thrombosis (DVT) of brachial vein of right upper extremity (11/11/15) Allergic rhinitis BPH (benign prostatic hyperplasia) CKD (chronic kidney disease) Complete tear of right rotator cuff (10/14/15) GERD HLD (hyperlipidemia) Hypertension NAFLD (nonalcoholic fatty liver disease) Right carpal tunnel syndrome (05/12/16) Seborrheic keratoses Spinal stenosis Spondylolisthesis at L4-L5 level (10/24/16) Urinary retention Surgical History Endoscopic Carpal Tunnel release (06/07/16) Repair of inguinal hernia Rotator Cuff Repair (09/03/15) Social History Smoking/Tobacco Use Status: Never Smoking risk assessment performed?: Yes Alcohol Intake: never Drug use: Never Substance use type: does not use Do you feel safe at home: Yes Do you feel safe in your relationship?: Yes
[2021-09-04] MEDS: Sulfameth/Trimeth DS TAB 1 TAB PO (09:42)
[2021-09-04] MEDS: Docusate Sodium 100 MG CAP PO (09:42)
--- NOTE | 2021-09-04 09:58 | W.PM.PROGNOT ---
Date of Service Date of service: 09/04/21 Time of Service: 11:51 Assessment and Plan Assessment and plan (1) Urinary retention: Assessment and plan: He will be able to be discharged later today with his catheter in place. We will arrange for home health services. he will come into our office this week for a voiding trial. Subjective Subjective Interval history since last seen: Patient has been comfortable with fewer spasms. No clot retention. Exam Narrative Exam Narrative: He looks comfortable His vital signs are documented elsewhere His urine is light punk and transparent without CBI He is awake and alert Objective Last Vital Signs Temp 36.2 C L 09/04/21 06:21 Pulse 63 09/04/21 06:21 Resp 18 09/04/21 06:21 BP 113/63 09/04/21 06:21 Pulse Ox 96 09/04/21 06:21
--- NOTE | 2021-09-04 11:49 | PDOC.HHF2F_ITS ---
Home Health Certification Home Health Certification: 1. Encounter Date and Reason I certify that Allen Leon was seen by Alan Fuentes MD on 09/04/21 and that I had a [id number] encounter with this patient that meets the physician face to face encounter requirements. 2. Clinical Findings Supporting Skilled Need and Homebound Status I certify that home health services are medically necessary, include either intermittent nursing home and/or physical/speech therapy, and that this pa tient is homebound in that absences from the home require considerable and taxing effort and are infrequent or of short duration, or are attributable to the need to receive medical care. [X] (a) Attached documentation from encounter provides clinical findings supporting skilled need and homebound status (including what assistance patient requires to leave the home). The encounter with the patient was in whole, or in part, for the following medical condition, which is the primary reason for home health care: Urinary Retention Group Home: Sapp catheter care Physical Therapy: Speech Therapy: Homebound: 3. Certification and Authentication I certify that I composed the above information based on my clinical judgement relating to this patient's medical condition and, if applicable, clinical findings communicated to me by the NPP or inpatient physician who performed the Home Health Referral. All further orders will be obtained through _Avelino Caballero (Community Based Physician - PCP)
[2021-09-04 12:02] VITALS: BP 126/74; PULSE 77; RESP 30; TEMP 37; O2SAT 95
--- NOTE | 2021-09-04 12:03 | CMDISCH_ITS ---
- If Service Date Differs Date of service: 09/04/21 Time of Service: 12:03 LACE Index Scoring Tool - Questions: Length of Stay (in days): 2 Acuity (Admit via E.D.?): No Comorbidities: Liver or Renal Disease E.D. Visits: 5 - Answers: Total Score: 11 Risk of Readmission: High Risk Care Management Discharge Reason for Hospitalization: Urinary Retention Discharge Plan: Allen will return home today with new orders for HH RN for catheter care. [facility] was notified via fax of his discharge today. His will drive him home via private vehicle. He has family from out of town who will also support him post hospitalization. He will follow up with his PCP and discharge plan of care. He is happy to be going home. Patient/Family Education Needs: Review discharge instructions regarding activity level and medications, discussion of self care needs including ask me three. Services Needed at Discharge: Home Health Care Services (HH RN)
== END 2021-09-04 15:56 | disposition home or self-care (01) | DRG 714 ==
LOC: MS 12:04
PROVIDERS: Admitting Provider Urology; PCP Family Medicine; Visit Provider Urology
PROC: 0TJB8ZZ Inspection of Bladder, Via Natural or Artificial Opening Endoscopic (ICD-10-PCS; CPT 52000; principal; 2021-09-02 08:45)
DX: N40.1 Benign prostatic hyperplasia with lower urinary tract symptoms (principal); R33.9 Retention of urine, unspecified; M47.816 Spondylosis without myelopathy or radiculopathy, lumbar region; K21.9 Gastro-esophageal reflux disease without esophagitis; E78.5 Hyperlipidemia, unspecified; I12.9 Hypertensive chronic kidney disease with stage 1 through stage 4 chronic kidney disease, or unspecified chronic kidney disease; K76.0 Fatty (change of) liver, not elsewhere classified; M48.00 Spinal stenosis, site unspecified; Z86.718 Personal history of other venous thrombosis and embolism; M25.852 Other specified joint disorders, left hip; G51.0 Bell's palsy
CPT/HCPCS: 52601; 36415; 80048; 88305; 85025; J0690; J1100; J2001; J2405; J3010

== ENCOUNTER → 2021-09-06 09:28 | Outpatient (BNVA) | payer MEDICARE, SELFPAY | PROVIDERS: PCP Family Medicine; Referring Provider Family Medicine; Visit Provider Nurse Practitioner Gerontology | DX: R33.8 Other retention of urine (principal) ==

== ENCOUNTER → 2021-09-10 15:05 | Outpatient (BNVA) | payer MEDICARE, SELFPAY | PROVIDERS: PCP Family Medicine; Referring Provider Family Medicine; Visit Provider Urology | DX: R33.9 Retention of urine, unspecified (principal) | CPT/HCPCS: 99214 ==

== ENCOUNTER → 2021-10-06 10:28 | Outpatient (BNVA) | payer MEDICARE, SELFPAY | PROVIDERS: PCP Family Medicine; Referring Provider Family Medicine; Visit Provider Nurse Practitioner Gerontology | DX: R33.8 Other retention of urine (principal) | CPT/HCPCS: 51798; 99214 ==

== ENCOUNTER 2021-10-10 08:23 | Inpatient (IN) | payer MEDICARE, SELFPAY ==
[2021-10-10] VITALS (30 sets, daily range): BP systolic 102–180; BP diastolic 64–103; PULSE 59–105; RESP 14–26; TEMP 36–36.9; O2SAT 91–97
[2021-10-10 09:34] LABS: Abs Immature Grans 0.08 10^3/uL (0.0-0.06); Absolute Eosinophil Count 0.02 10^3/uL (0.0-0.7); Absolute Lymphocyte Count 3.16 10^3/uL (1.2-3.4); Basophils % 0.4; Eosinophils % 0.1; HCT 39.9 % (40.0-50.0); HGB 13.6 g/dL (13.5-17.5); Immature Grans % 0.5; Lymphocytes % 18.8; MCH 31.7 pg (27.0-33.0); MCHC 34.1 % (32.0-36.0); MPV 11.8 fL (8.0-11.0); Monocytes % 3.5; Neutrophils % 76.7; Nucleated RBC 0 %; Platelet Count 166 10^3/uL (130-400); RBC 4.29 10^6/uL (4.36-5.78); RDW 12.4 % (11.8-14.1); RDW-SD 42.4 fL
[2021-10-10 09:35] LABS: Absolute Basophil Count 0.07 10^3/uL (0.0-0.2); Absolute Monocyte Count 0.59 10^3/uL (0.1-0.8); Absolute Neutrophil Count 12.89 10^3/uL (1.2-6.7)
--- NOTE | 2021-10-10 09:45 | DI.CT_ITS ---
Exam(s) CT ABDOMEN PELVIS WO/W EXAM: CT ABDOMEN PELVIS WO/W CLINICAL HISTORY: s/p turn with gross hematuria, urogram TECHNIQUE: CT examination of the abdomen pelvis was performed utilizing CT urogram protocol with non contrast CT followed by venous phase 7 minutes delayed phase imaging with intravenous infusion of 100 cc of Omnipaque 350. COMPARISON: No exams were available for comparison FINDINGS: Images obtained through the lung bases are unremarkable. Coronary artery calcifications are noted. Noncontrast CT shows no evidence of urinary tract calcification. Images obtained through the lung bases show slight reticular radiodensities in, probably represents s carring, small ground-glass opacities versus mosaic attenuation also noted, no gross consolidation pe riod. The liver is unremarkable in appearance. The spleen is unremarkable in appearance. The pancreas is unremarkable in appearance. There is probable cholelithiasis, bile ducts appear normal. Abdominal aorta and major visceral branches appear intact. No evidence of abdominal wall hernia. No evidence of abdominal or pelvic adenopathy. No focal bowel pathology. There are bilateral renal cysts, there is a probable tiny nonobstructing right renal calculus. No ur eteral calcification seen. Urinary bladder contains a Sapp catheter and large quantity of heterogen eous intermediate attenuation material is present in the urinary bladder, likely hemorrhage following recent TURP procedure. Minimal fat stranding noted in the pelvis, no gross fluid collection or abscess.. Small sub gluteal cyst noted just above the level of left hip, possible ganglion cyst. IMPRESSION: Presumed hemorrhage in urinary bladder following TURP. No other significant acute findings.. RADIATION DOSE DELIVERED: 3,011.36mGy.cm Total DLP 3,011.36mGy.cm Total DLP !Error CTDIvol RADIATION OPTIMIZATION: All CT scans at this facility use at least one of these dose optimization te chniques: automated exposure control; mA and/or kV adjustment per patient size (includes targeted exa ms where dose is matched to clinical indication); or iterative reconstruction.
[2021-10-10 09:48] LABS: ALT 25 U/L (16-63); AST 22 U/L (15-37); Albumin 4.1 g/dL (3.4-5.0); Alkaline Phosphatase 92 U/L (46-116); Anion Gap 15.7 mmol/L (3-11); BUN 27 mg/dL (7-18); Bilirubin, Total 0.6 mg/dL (0.2-1.0); CO2 20.3 mmol/L (21.0-32.0); CREATININE 1.6 mg/dL (0.70-1.30); Calcium 8.9 mg/dL (8.5-10.1); Chloride 104 mmol/L (98-107); Estimated GFR 42.12 (mL/min/1.73m2); Glucose 182 mg/dL (74-106); Potassium 3.9 mmol/L (3.5-5.1); Sodium 140 mmol/L (136-145); Total Protein 7.4 g/dL (6.4-8.2)
[2021-10-10 10:03] LABS: BE (Venous) -3 mmol/L (-2-3); HCO3 (Venous) 23 mmol/L (23-28); O2 Sat (Venous) 92 %; TCO2 (Venous) 20 mmol/L (24-29); pCO2 (Venous) 39 mmHg (41-51); pH (Venous) 7.38 (7.31-7.41); pO2 (Venous) 63 mmHg
[2021-10-10 10:06] LABS: Lactate 2.4 mmol/L (0.6-1.4)
[2021-10-10 10:18] LABS: Bilirubin Negative (Negative); Clarity Cloudy (Clear); Glucose Negative (Negative); Ketones Negative (Negative); Leukocyte Esterase Negative (Negative); Nitrite Negative (Negative); Specific Gravity >= 1.030 (1.005-1.025); Urobilinogen 0.2 EU/dL (Up TO 0.2)
[2021-10-10] MEDS: Lidocaine 2% Jelly 11 ML SYR UR (10:20)
[2021-10-10] MEDS: Omnipaque 350 MG/ML 100 ML BTL IJ (10:25)
[2021-10-10] MEDS: Normal Saline Flush 10 ML SYR IVP (10:25)
[2021-10-10 10:26] LABS: Blood Large (Negative)
[2021-10-10 10:29] LABS: RBC >50 HPF (0-2)
[2021-10-10 10:30] LABS: C & S Indicated? No
--- NOTE | 2021-10-10 11:08 | DI.VRAD_ITS ---
PROCEDURE INFORMATION: Exam: CT Abdomen And Pelvis Without And With Contrast Exam date and time: 10/10/2021 10:17 AM Age: 76 years old Clinical indication: Other: S/P TURP with gross hematuria, urogram TECHNIQUE: Imaging protocol: Computed tomography of the abdomen and pelvis without and with contrast. Contrast material: OMNIPAQUE 350; Contrast volume: 100 ml; Contrast route: INTRAVENOUS (IV); COMPARISON: CR XR HIP LT COMPLETE AP PELVIS 12/10/2020 9:15 AM FINDINGS: Lungs: Bibasilar ground-glass and reticular opacities likely represent atelectasis. Heart: Imaged heart is enlarged. No pericardial effusion. Coronary artery calcifications. Liver: Hepatic steatosis. No focal hepatic mass. Gallbladder and bile ducts: Cholelithiasis. No evidence of gallbladder wall thickening or pericholecystic fluid. No biliary ductal dilation. Pancreas: Normal. No ductal dilation. Spleen: Normal. No splenomegaly. Adrenal glands: Normal. No mass. Kidneys and ureters: Kidneys are symmetric in size and enhancement. Bilateral renal cysts and subcentimeter hypodensities that are too small to characterize. No hydronephrosis or hydroureter. Stomach and bowel: Stomach is unremarkable. The small bowel is normal in caliber. Majority of the large bowel is unremarkable. There is wall thickening of the rectum, which may be expected given recent procedure. Appendix: No evidence of appendicitis. Intraperitoneal space: There is expected pelvic stranding and trace fluid following recent transurethral prostate resection. No organized fluid collection in the surgical bed. Arteries: Unremarkable. No abdominal aortic aneurysm. Lymph nodes: Unremarkable. No enlarged lymph nodes. Urinary bladder: Large lobular hyperdense clot within the urinary bladder lumen. Sapp bulb catheter is in place. Reproductive: Status post prostate resection. Bones/joints: No acute osseous findings. Posterior fusion at L4-L5. Degenerative changes of the lumbar spine and hips. Soft tissues: Underlying the left gluteus minimus there is a multilocular 3.7 cm cystic lesion, no associated inflammatory changes. Superficial soft tissues otherwise unremarkable. IMPRESSION: 1. Intraluminal hemorrhagic products/blood clot within the urinary bladder measuring up to 8.1 cm in diameter. 2. Soft tissue stranding in trace pelvic fluid at the prostatectomy bed without organized fluid collection. 3. Cholelithiasis without other CT findings of acute cholecystitis. 4. Coronary artery disease. 5. Nonspecific 3.7 cm cystic lesion underlying the left gluteus minimus muscle at the hip. No associated inflammatory changes in the surrounding soft tissues. If patient endorses left hip pain, further evaluation with MRI may be considered. Dictated and Authenticated by: Rocio Dennison MD. Ordering:RADHA Conde MD
[2021-10-10] MEDS: Normal Saline 500 ML IV ×2 (11:14→12:33)
--- NOTE | 2021-10-10 11:24 | ED.GENADUL_ITS ---
Discharge Plan Disposition Patient Disposition: [facility] Condition: Stable Discharge Details Clinical Impression: Acute urinary retention, S/P TURP, Hematoma of bladder wall Admit Date/Time: 10/10/21 11:55 Admit Provider: Anita Ramirez Attending Provider: Anita Ramirez ED Provider: Amaya Whitehead Discharge Data Discharge Date/Time-TO BE ENTERED AT DEPARTURE: 10/10/21 12:50 Medical Decision Making Sapp catheter was placed without incident with 20 [place] placed by nursing I did weigh risk benefit associated Sapp catheter placement status post procedure, however patient is 5 post surgery and I think the risk associated with urinary retention outweighs the benefit of placement of Sapp catheter Patient has significant symptomatic improvement post Sapp catheter placement, please see nursing documentation He had approximately 900 cc of blood Has been microanalysis is difficult to interpret secondary to greater than 50 red blood cells Type and screen was ordered Placed on telemetry monitoring Not anticoagulated, no indication for reversal Patient is pain-free at time of reassessment is resting comfortably in room with a draining Sapp catheter, CT was ordered given leukocytosis 16,000 neutrophil count of 12,000 VBG lactate of 2.4 CO2 of 20, anion gap of 15, BUN of 27, creatinine 1.6 Virtual radiology interpretation shows a large 8.1 cm intraluminal hemorrhagic products noted within the urinary bladder, with soft tissue stranding and trace pelvic fluid at the proximal ectomy but without organized fluid collection Cholelithiasis, and reported 3.7 cm cystic lesion to the left gluteus minimus muscle, patient has no tenderness or rashes noted in this area As we do not have urology available, Dr. Fuentes was paged and did not return call as he is not on-call for the hospital this weekend I did contact [facility] to speak with the on-call urologist prior to admitting patient to this facility Given that he meets SIRS criteria I did order a single dose of ceftriaxone 2 g 1 L normal saline initiated Bladder irrigation started Discussed with Dr. Ivory, urologist at [facility] and reviewed CT findings, he does not recommend emergent necessity for surgical intervention regarding clot products bladder, however does recommend admission with bladder irrigation and urology consultation tomorrow He recommends treating the patient empirically for urinary tract infection Patient is hemodynamically stable, alert and oriented Long discussion with and patient and patient to be maintained full CODE STATUS covid swab pending Medical Records Medical records reviewed: Yes I reviewed the patient's medical records. Lab Data Lab results reviewed: Yes I reviewed the patient's lab results. HPI General Date/Time Provider Initiated Documentation: 10/10/21 08:24 . HPI Narrative: This 76-year-old gentleman with history of urinary retention, hypertension, and hyperlipidemia presents with reported urinary retention which started this morning at 3 AM. Patient had pain and had not urinated early evening last evening. He also noticed some bloody drainage from his urethra. He is status post TURP procedure performed approximately 5 weeks ago. He was taken off of finasteride approximately 4 days ago and Sapp catheter was removed approximately 3 weeks ago. He has not had any issues with voiding until now reportedly. He denies any fever or chills. He is in significant pain secondary to likely urinary retention. Denies history of anticoagulation. Denies any weakness or dizziness. Related Data Home Medications Medication Instructions Recorded Confirmed omeprazole 10 mg capsule,delayed 20 mg PO DAILY 01/20/15 10/10/21 release magnesium 200 mg tablet 400 mg PO DAILY tab 12/10/20 10/10/21 potassium chloride 10 mEq 10 meq PO DAILY 12/10/20 10/10/21 tablet,extended release(part/cryst) fluticasone propionate 50 1 spray INTRANASAL DAILY PRN 08/13/21 10/10/21 mcg/actuation nasal spray,suspension rosuvastatin 20 mg tablet 20 mg PO DAILY 08/13/21 10/10/21 lisinopril 5 mg tablet 2.5 mg PO DAILY tab 08/26/21 10/10/21 furosemide 20 mg tablet 20 mg PO DAILY tab 09/10/21 10/10/21 Allergies Allergy/AdvReac Type Severity Reaction Status Date / Time tamsulosin Allergy Verified 10/10/21 12:19 General Stated Complaint: Urinary JENNIFER: 3 Review of Systems All systems reviewed & are unremarkable except as noted in HPI and below PFSH All Active Problems (Updated 10/10/21 @ 15:15 by NORMA Aldana) Acute urinary retention (Acute) S/P TURP (Acute) Hematoma of bladder wall (Acute) Discharge planning issues (Acute) DVT prophylaxis (Acute) Cyst (Acute) Nonspecific 3.7 cm cystic lesion underlying the left gluteus minimus muscle at the hip on CT abdomen/pelvis 10/10/21 SIRS (systemic inflammatory response syndrome) (Acute) Hematuria (Acute) Femoral acetabular impingement (Acute) left hip Foreign body of knee, left, superficial (Acute) Spondylosis of lumbar region without myelopathy or radiculopathy (Chronic) Lumbar radicular pain (Chronic) Rotator cuff tear, right (Acute) Medical History Acute deep vein thrombosis (DVT) of brachial vein of right upper extremity (11/11/15) Allergic rhinitis BPH (benign prostatic hyperplasia) CKD (chronic kidney disease) Complete tear of right rotator cuff (10/14/15) GERD HLD (hyperlipidemia) Hypertension NAFLD (nonalcoholic fatty liver disease) Right carpal tunnel syndrome (05/12/16) Seborrheic keratoses Spinal stenosis Spondylolisthesis at L4-L5 level (10/24/16) Urinary retention Surgical History Endoscopic Carpal Tunnel release (06/07/16) Repair of inguinal hernia Rotator Cuff Repair (09/03/15) Social History Smoking/Tobacco Use Status: Never Smoking risk assessment performed?: Yes Alcohol Intake: never Drug use: Never Substance use type: does not use Do you feel safe at home: Yes Do you feel safe in your relationship?: Yes Exam Const General: cooperative and acute distress Eyes Sclera: sclerae normal Chest Chest: normal inspection of the chest Resp Effort & Inspection: normal respiratory effort Auscultation: clear to auscultation bilaterally Cardio Rate: tachycardic Rhythm: regular rhythm GI Inspection: normal to inspection General: No CVA tenderness Other: No scrotal edema or penile rashes or lesions, blood noted from urethra, suprapubic fullness Skin General skin exam: no rashes or lesions noted Neuro General: patient alert and patient oriented x3 Course Vital Signs Vital signs: Vital Signs Temperature 36.5 C 10/10/21 08:38 Pulse 105 H 10/10/21 08:38 Respiratory Rate 18 10/10/21 08:38 Blood Pressure 180/103 H 10/10/21 08:38 Pulse Oximetry 95 10/10/21 08:38 Temperature 36.5 C 04/10/22 08:38 Pulse 105 H 10/10/21 08:38 Respiratory Rate 18 10/10/21 08:38 Respiratory Effort Non-Labored 10/10/21 08:41 Blood Pressure 180/103 H 10/10/21 08:38 Blood Pressure Position Sitting 10/10/21 08:38 Pulse Oximetry 95 10/10/21 08:38 Oxygen Delivery Method Room Air 10/10/21 08:38 Oxygen Flow Rate 0 10/10/21 08:38 Pain Level 10 10/10/21 10:21 Lab/Test Results Lab/Test Results: 10/10/21 10:00 Urine - Bladder Aspirate Urine Culture - Pending 10/10/21 10:14 Blood Blood Culture - Pending 10/10/21 10:14 Blood Blood Culture - Pending Laboratory Tests Range/Units 10/10/21 10/10/21 10/10/21 09:08 09:08 09:55 WBC (4.4-10.8) 10^3/uL 16.80 H RBC (4.36-5.78) 10^6/uL 4.29 L Hgb (13.5-17.5) g/dL 13.6 Hct (40.0-50.0) % 39.9 L MCV (80-95) fL 93.0 MCH (27.0-33.0) pg 31.7 MCHC (32.0-36.0) % 34.1 RDW (11.8-14.1) % 12.4 Plt Count (130-400) 10^3/uL 166 MPV (8.0-11.0) fL 11.8 H Immature Gran % 0.5 Neutrophils % 76.7 Lymphocytes % 18.8 Monocytes % 3.5 Eosinophils % 0.1 Basophils % 0.4 Nucleated RBC % % 0 Absolute Neutrophils (1.2-6.7) 10^3/uL 12.89 H Absolute Lymphocytes (1.2-3.4) 10^3/uL 3.16 Absolute Monocytes (0.1-0.8) 10^3/uL 0.59 Absolute Eosinophils (0.0-0.7) 10^3/uL 0.02 Absolute Basophils (0.0-0.2) 10^3/uL 0.07 VBG pH (7.31-7.41) 7.38 VBG pCO2 (41-51) mmHg 39 L VBG pO2 mmHg 63 VBG HCO3 (23-28) mmol/L 23 VBG Total CO2 (24-29) mmol/L 20 L VBG O2 Saturation % 92 VBG Base Excess (-2-3) mmol/L -3 L VBG Lactate (0.6-1.4) mmol/L Sodium (136-145) mmol/L 140 Potassium (3.5-5.1) mmol/L 3.9 Chloride (98-107) mmol/L 104 Carbon Dioxide (21.0-32.0) mmol/L 20.3 L Anion Gap (3-11) mmol/L 15.7 H BUN (7-18) mg/dL 27 H Creatinine (0.70-1.30) mg/dL 1.6 H Estimated GFR/1.73 m2 (mL/min/1.73m2) 42.12 Glucose (74-106) mg/dL 182 H Calcium (8.5-10.1) mg/dL 8.9 Total Bilirubin (0.2-1.0) mg/dL 0.6 AST (15-37) U/L 22 ALT (16-63) U/L 25 Alkaline Phosphatase (46-116) U/L 92 Total Protein (6.4-8.2) g/dL 7.4 Albumin (3.4-5.0) g/dL 4.1 Urine Color (Yellow) Urine Clarity (Clear) Urine pH (5-8) Ur Specific [place] (1.005-1.025) Urine Protein (Negative) mg/dL Urine Ketones (Negative) mg/dL Urine Blood (Negative) Urine Nitrite (Negative) Urine Bilirubin (Negative) Urine Urobilinogen (Up TO 0.2) EU/dL Ur Leukocyte Esterase (Negative) Urine RBC (0-2) HPF Urine WBC (0-5) HPF Ur Epithelial Cells (Negative) HPF Urine Crystals (Negative) HPF Urine Bacteria (Negative) HPF Urine Casts (Negative) LPF Urine Mucus (Negative) Ur Culture Indicated? Urine Glucose (Negative) mg/dL Range/Units 10/10/21 10/10/21 09:55 10:01 WBC (4.4-10.8) 10^3/uL RBC (4.36-5.78) 10^6/uL Hgb (13.5-17.5) g/dL Hct (40.0-50.0) % MCV (80-95) fL MCH (27.0-33.0) pg MCHC (32.0-36.0) % RDW (11.8-14.1) % Plt Count (130-400) 10^3/uL MPV (8.0-11.0) fL Immature Gran % Neutrophils % Lymphocytes % Monocytes % Eosinophils % Basophils % Nucleated RBC % % Absolute Neutrophils (1.2-6.7) 10^3/uL Absolute Lymphocytes (1.2-3.4) 10^3/uL Absolute Monocytes (0.1-0.8) 10^3/uL Absolute Eosinophils (0.0-0.7) 10^3/uL Absolute Basophils (0.0-0.2) 10^3/uL VBG pH (7.31-7.41) VBG pCO2 (41-51) mmHg VBG pO2 mmHg VBG HCO3 (23-28) mmol/L VBG Total CO2 (24-29) mmol/L VBG O2 Saturation % VBG Base Excess (-2-3) mmol/L VBG Lactate (0.6-1.4) mmol/L 2.4 H* Sodium (136-145) mmol/L Potassium (3.5-5.1) mmol/L Chloride (98-107) mmol/L Carbon Dioxide (21.0-32.0) mmol/L Anion Gap (3-11) mmol/L BUN (7-18) mg/dL Creatinine (0.70-1.30) mg/dL Estimated GFR/1.73 m2 (mL/min/1.73m2) Glucose (74-106) mg/dL Calcium (8.5-10.1) mg/dL Total Bilirubin (0.2-1.0) mg/dL AST (15-37) U/L ALT (16-63) U/L Alkaline Phosphatase (46-116) U/L Total Protein (6.4-8.2) g/dL Albumin (3.4-5.0) g/dL Urine Color (Yellow) Red Urine Clarity (Clear) Cloudy Urine pH (5-8) 7.0 Ur Specific [place] (1.005-1.025) >= 1.030 H Urine Protein (Negative) mg/dL >=300 H Urine Ketones (Negative) mg/dL Negative Urine Blood (Negative) Large H Urine Nitrite (Negative) Negative Urine Bilirubin (Negative) Negative Urine Urobilinogen (Up TO 0.2) EU/dL 0.2 Ur Leukocyte Esterase (Negative) Negative Urine RBC (0-2) HPF >50 H Urine WBC (0-5) HPF Ur Epithelial Cells (Negative) HPF Urine Crystals (Negative) HPF Urine Bacteria (Negative) HPF Urine Casts (Negative) LPF Urine Mucus (Negative) Ur Culture Indicated? No Urine Glucose (Negative) mg/dL Negative
--- NOTE | 2021-10-10 11:45 | DI.RAD_ITS ---
Exam(s) XR PORTABLE CHEST AP EXAM: XR PORTABLE CHEST AP CLINICAL HISTORY: leukocytosis TECHNIQUE: COMPARISON: CR CHEST 2 VIEWS PA,LAT from 02/13/[address] ABDOMEN PELVIS WO/W from 10/10/2021 FINDINGS: The heart is not enlarged. There are minimal streaky radiodensities in the left lung base, probably small areas of atelectasis or scarring, not present on prior radiograph of January 2017. Otherwise lungs are clear. No pleural effusion seen. Mediastinal structures show normal contour. IMPRESSION: Indeterminate left basilar densities, probably representing small areas of atelectasis or scarring. Please correlate clinically. RADIATION DOSE DELIVERED: Total DLP
[2021-10-10 11:52] LABS: Source Nasal/Nares
[2021-10-10] MEDS: cefTRIAXone 2 GM/50 ML BAG IVPB (11:59)
--- NOTE | 2021-10-10 12:00 | W.PM.HP.N ---
Date of service: 10/10/21 Time of Service: 12:00 Assessment and Plan Assessment and plan (1) Urinary retention: Assessment and plan: In setting of hematuria/clot obstructing urinary outflow tract. Continue CBI initiated in the ED. Await urology consult. Made NPO as per [facility] [place]. (2) Hematuria: Status: Acute Assessment and plan: 5 weeks post-op. As above - CBI, await urology consult, NPO for a possible intervention tomorrow. Avoid chemical DVT ppx. (3) SIRS (systemic inflammatory response syndrome): Status: Acute Assessment and plan: Could be reactive to having urinary retention/hematuria. However, infectious causes should be ruled out, especially given co-occurrence of lactic acidosis (now resolved). Continue empiric ceftriaxone initiated in the ED. The patient is now euvolemic and IVF can be d/c'ed. Procalcitonin negative. Low threshold to add vancomycin given recent instrumentation. UA negative. CXR negative. However, there is periprostatic stranding on CT and it is possible the patient has a soft tissue infection not captured by the UA. (4) Cyst: Status: Acute Assessment and plan: Nonspecific 3.7 cm cystic lesion underlying the left gluteus minimus muscle at the hip on CT.- felt to likely be a ganglion cyst No follow up needed unless becomes symptomatic. (5) Spinal stenosis: Assessment and plan: L4-L5. No evidence of Cauda equina, per ED, and so it is less likely the cause of the urinary retention than the blood clot. (6) DVT prophylaxis: Status: Acute Assessment and plan: SCD. Avoid chemical DVT ppx given hematuria (7) Discharge planning issues: Status: Acute Assessment and plan: Full code. Admit with urology consult and plans to possibly transfer to urology service tomorrow. History of Present Illness History of Present Illness Chief Complaint: Inability to urinate, blood coming from urethra Narrative: Mr Leon is a 76 year old male with PMHx of TURP on 09/02/21 for h/o BPH w/urinary retention by Dr Fuentes, as well as h/o spinal stenosis at L4-L5, HTN, hyperlipidemia, CKD III with baseline Cr of 1.7 - 2.0, who presented to [facility] ED today c/o inability to urinate and blood coming out of his urethra. He woke up with symptoms of bladder fullness and passed a blood clot when he urinated, but could not empty his bladder. In the ED, 900 cc of bloody urine came out when a three way catheter was inserted and CBI was initiated. Dry CT abdomen/pelvis revealed an 8.1 cm blood clot inside his bladder as well as soft tissue stranding in the prostatectomy bed without organized fluid collection. Informal urology phone consultation with [facility] [place] to keep the patient NPO after midnight for a potential intervention by Dr Fuentes tomorrow morning. The patient had a leucocytosis and evidence of lactic acidosis on his labs, but his UA was negative. The patient was initiated on empiric ceftriaxone with blood cultures as well as CXR pending. Hospitalist admission was requested. The patient specifically denied incontinence of stool in the ED. He endorses diarrhea this morning, but otherwise denies fevers, upper or lower respiratory symptoms, any exposures to confirmed or suspected COVID-19, chest pain, shortness of breath, nausea, abdominal pain other than the discomfort from bladder not being able to be emptied. Review of Systems All systems reviewed & are unremarkable except as noted in HPI and below PFSH All Active Problems (Updated 10/10/21 @ 15:15 by NORMA Aldana) Acute urinary retention (Acute) Hematoma of bladder wall (Acute) Discharge planning issues (Acute) DVT prophylaxis (Acute) Cyst (Acute) Nonspecific 3.7 cm cystic lesion underlying the left gluteus minimus muscle at the hip on CT abdomen/pelvis 10/10/21 SIRS (systemic inflammatory response syndrome) (Acute) Hematuria (Acute) Femoral acetabular impingement (Acute) left hip Foreign body of knee, left, superficial (Acute) Spondylosis of lumbar region without myelopathy or radiculopathy (Chronic) Lumbar radicular pain (Chronic) Rotator cuff tear, right (Acute) Medical History (Updated 10/10/21 @ 15:15 by NORMA Aldana) Acute deep vein thrombosis (DVT) of brachial vein of right upper extremity (11/11/15) Allergic rhinitis BPH (benign prostatic hyperplasia) CKD (chronic kidney disease) Complete tear of right rotator cuff (10/14/15) GERD HLD (hyperlipidemia) Hypertension NAFLD (nonalcoholic fatty liver disease) Right carpal tunnel syndrome (05/12/16) Seborrheic keratoses Spinal stenosis Spondylolisthesis at L4-L5 level (10/24/16) Urinary retention Surgical History (Updated 10/10/21 @ 17:34 by Anita Ramirez MD) Endoscopic Carpal Tunnel release (06/07/16) Repair of inguinal hernia Rotator Cuff Repair (09/03/15) S/P TURP Family History (Updated 10/10/21 @ 19:05 by Anita Ramirez MD) Brother Diabetes Hypertension Brother Diabetes Hypertension Cancer skin cancer, unknown type Brother Hypertension Brother Hypertension Mother Nonalcoholic fatty liver disease Social History Smoking/Tobacco Use Status: Never Smoking risk assessment performed?: Yes Alcohol Intake: never Drug use: Never Substance use type: does not use Do you feel safe at home: Yes Do you feel safe in your relationship?: Yes Meds Allergies and Home Medications Allergies Allergy/AdvReac Type Severity Reaction Status Date / Time tamsulosin Allergy Verified 10/10/21 12:19 Home Medications Medication Instructions Recorded Confirmed Type omeprazole 10 mg capsule,delayed 20 mg PO DAILY 01/20/15 10/10/21 History release magnesium 200 mg tablet 400 mg PO DAILY tab 12/10/20 10/10/21 History potassium chloride 10 mEq 10 meq PO DAILY 12/10/20 10/10/21 History tablet,extended release(part/cryst) fluticasone propionate 50 1 spray INTRANASAL DAILY PRN 08/13/21 10/10/21 History mcg/actuation nasal spray,suspension rosuvastatin 20 mg tablet 20 mg PO DAILY 08/13/21 10/10/21 History lisinopril 5 mg tablet 2.5 mg PO DAILY tab 08/26/21 10/10/21 History furosemide 20 mg tablet 20 mg PO DAILY tab 09/10/21 10/10/21 History Exam Narrative Exam Narrative: General: Pleasant elderly male with 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 Results Imaging Additional studies: CT abdomen/pelvis: 1. Intraluminal hemorrhagic products/blood clot within the urinary bladder measuring up to 8.1 cm in diameter. 2. Soft tissue stranding in trace pelvic fluid at the prostatectomy bed without organized fluid collection. 3. Cholelithiasis without other CT findings of acute cholecystitis. 4. Coronary artery disease. 5. Nonspecific 3.7 cm cystic lesion underlying the left gluteus minimus muscle at the hip. No associated inflammatory changes in the surrounding soft tissues. If patient endorses left hip pain, further evaluation with MRI may be considered. CXR: No acute process, per my read. Official read pending Labs Result diagrams: 10/10/21 09:08 10/10/21 13:20 Labs: Laboratory Results - last 24 hr 10/10/21 10/10/21 10/10/21 09:08 09:08 09:55 WBC 16.80 H RBC 4.29 L Hgb 13.6 Hct 39.9 L MCV 93.0 MCH 31.7 MCHC 34.1 RDW 12.4 Plt Count 166 MPV 11.8 H Immature Gran % 0.5 Neutrophils % 76.7 Lymphocytes % 18.8 Monocytes % 3.5 Eosinophils % 0.1 Basophils % 0.4 Nucleated RBC % 0 Absolute Neutrophils 12.89 H Absolute Lymphocytes 3.16 Absolute Monocytes 0.59 Absolute Eosinophils 0.02 Absolute Basophils 0.07 VBG pH VBG pCO2 VBG pO2 VBG HCO3 VBG Total CO2 VBG O2 Saturation VBG Base Excess VBG Lactate Sodium 140 Potassium 3.9 Chloride 104 Carbon Dioxide 20.3 L Anion Gap 15.7 H BUN 27 H Creatinine 1.6 H Estimated GFR/1.73 m2 42.12 Glucose 182 H Calcium 8.9 Total Bilirubin 0.6 AST 22 ALT 25 Alkaline Phosphatase 92 Total Protein 7.4 Albumin 4.1 Urine Color Urine Clarity Urine pH Ur Specific [employer] Urine Protein Urine Ketones Urine Blood Urine Nitrite Urine Bilirubin Urine Urobilinogen Ur Leukocyte Esterase Urine RBC Urine WBC Ur Epithelial Cells Urine Crystals Urine Bacteria Urine Casts Urine Mucus Ur Culture Indicated? Urine Glucose COVID-19 Source Patient ABO/Rh Cancelled 10/10/21 10/10/21 10/10/21 09:55 09:55 10:01 WBC RBC Hgb Hct MCV MCH MCHC RDW Plt Count MPV Immature Gran % Neutrophils % Lymphocytes % Monocytes % Eosinophils % Basophils % Nucleated RBC % Absolute Neutrophils Absolute Lymphocytes Absolute Monocytes Absolute Eosinophils Absolute Basophils VBG pH 7.38 VBG pCO2 39 L VBG pO2 63 VBG HCO3 23 VBG Total CO2 20 L VBG O2 Saturation 92 VBG Base Excess -3 L VBG Lactate 2.4 H* Sodium Potassium Chloride Carbon Dioxide Anion Gap BUN Creatinine Estimated GFR/1.73 m2 Glucose Calcium Total Bilirubin AST ALT Alkaline Phosphatase Total Protein Albumin Urine Color Red Urine Clarity Cloudy Urine pH 7.0 Ur Specific [employer] >= 1.030 H Urine Protein >=300 H Urine Ketones Negative Urine Blood Large H Urine Nitrite Negative Urine Bilirubin Negative Urine Urobilinogen 0.2 Ur Leukocyte Esterase Negative Urine RBC >50 H Urine WBC Ur Epithelial Cells Urine Crystals Urine Bacteria Urine Casts Urine Mucus Ur Culture Indicated? No Urine Glucose Negative COVID-19 Source Patient ABO/Rh 10/10/21 11:45 WBC RBC Hgb Hct MCV MCH MCHC RDW Plt Count MPV Immature Gran % Neutrophils % Lymphocytes % Monocytes % Eosinophils % Basophils % Nucleated RBC % Absolute Neutrophils Absolute Lymphocytes Absolute Monocytes Absolute Eosinophils Absolute Basophils VBG pH VBG pCO2 VBG pO2 VBG HCO3 VBG Total CO2 VBG O2 Saturation VBG Base Excess VBG Lactate Sodium Potassium Chloride Carbon Dioxide Anion Gap BUN Creatinine Estimated GFR/1.73 m2 Glucose Calcium Total Bilirubin AST ALT Alkaline Phosphatase Total Protein Albumin Urine Color Urine Clarity Urine pH Ur Specific [employer] Urine Protein Urine Ketones Urine Blood Urine Nitrite Urine Bilirubin Urine Urobilinogen Ur Leukocyte Esterase Urine RBC Urine WBC Ur Epithelial Cells Urine Crystals Urine Bacteria Urine Casts Urine Mucus Ur Culture Indicated? Urine Glucose COVID-19 Source Nasal/Nares Patient ABO/Rh Last Vital Signs Temp 36.5 C 10/10/21 08:38 Pulse 73 10/10/21 11:51 Resp 22 10/10/21 11:51 BP 123/72 10/10/21 11:51 Pulse Ox 93 10/10/21 11:51
[2021-10-10 12:30] LABS: COVID-19 PCR Negative (Negative)
--- NOTE | 2021-10-10 12:32 | DI.VRAD_ITS ---
PROCEDURE INFORMATION: Exam: XR Chest Exam date and time: 10/10/2021 11:53 AM Age: 76 years old Clinical indication: Other: Leukocytosis TECHNIQUE: Imaging protocol: XR of the chest. Views: 1 view. COMPARISON: CR CHEST 2 VIEWS PA,LAT 02/13/2017 12:47 PM FINDINGS: Lungs: There is minimal atelectasis at the left lung base. There is no other significant airspace consolidation or CHF. Pleural spaces: Unremarkable. No pleural effusion. No pneumothorax. Heart/Mediastinum: Heart, mediastinum are unchanged Bones/joints: No new bony abnormality.. IMPRESSION: Left basilar atelectasis. Dictated and Authenticated by: Rhoda Schroeder MD. Ordering:RADHA Conde MD
[2021-10-10 12:36] LABS: Procalcitonin < 0.1 ng/mL
[2021-10-10] MEDS: Normal Saline 1,000 ML 125 ML IV (13:18)
[2021-10-10 13:29] LABS: Lactate 1.2 mmol/L (0.6-1.4)
[2021-10-10 13:38] LABS: BUN 27 mg/dL (7-18); CREATININE 1.5 mg/dL (0.70-1.30); Calcium 8.5 mg/dL (8.5-10.1); Chloride 105 mmol/L (98-107); Estimated GFR 45.38 (mL/min/1.73m2); Glucose 111 mg/dL (74-106); Potassium 4.3 mmol/L (3.5-5.1); Sodium 141 mmol/L (136-145)
[2021-10-10] MEDS: Rosuvastatin 10 MG TAB 20 MG PO (19:33)
[2021-10-11] VITALS (9 sets, daily range): BP systolic 100–145; BP diastolic 61–80; PULSE 57–90; RESP 15–20; TEMP 36–37; O2SAT 94–98; BMI 26.9
[2021-10-11 06:50] LABS: Abs Immature Grans 0.03 10^3/uL (0.0-0.06); Absolute Basophil Count 0.02 10^3/uL (0.0-0.2); Absolute Eosinophil Count 0.12 10^3/uL (0.0-0.7); Absolute Monocyte Count 0.75 10^3/uL (0.1-0.8); Absolute Neutrophil Count 6.69 10^3/uL (1.2-6.7); Basophils % 0.2; HCT 35.3 % (40.0-50.0); HGB 11.6 g/dL (13.5-17.5); Immature Grans % 0.3; Lymphocytes % 34.8; MCH 31.1 pg (27.0-33.0); MCHC 32.9 % (32.0-36.0); MCV 94.6 fL (80-95); MPV 12.2 fL (8.0-11.0); Monocytes % 6.4; Neutrophils % 57.3; Nucleated RBC 0 %; Platelet Count 131 10^3/uL (130-400); RBC 3.73 10^6/uL (4.36-5.78); RDW 12.7 % (11.8-14.1); RDW-SD 43.8 fL; WBC 11.68 10^3/uL (4.4-10.8)
[2021-10-11 06:57] LABS: Absolute Lymphocyte Count 4.06 10^3/uL (1.2-3.4)
[2021-10-11 07:28] LABS: Anion Gap 5.5 mmol/L (3-11); BUN 23 mg/dL (7-18); CO2 27.5 mmol/L (21.0-32.0); CREATININE 1.5 mg/dL (0.70-1.30); Calcium 8.6 mg/dL (8.5-10.1); Chloride 108 mmol/L (98-107); Estimated GFR 45.38 (mL/min/1.73m2); Glucose 97 mg/dL (74-106); Potassium 4.2 mmol/L (3.5-5.1); Sodium 141 mmol/L (136-145)
[2021-10-11] MEDS: Lisinopril 5 MG TAB 2.5 MG PO (08:27)
--- NOTE | 2021-10-11 08:54 | W.UROLOGYCON ---
Date of service: 10/11/21 Time of Service: 08:54 Assessment and Plan Assessment and plan (1) Clot retention of urine: Status: Acute Assessment and plan: We will plan to return to the OR for cystoscopy with clot evacuation. I will plan to replace his catheter after the procedure, but I would expect we can run his CBI at a much slower rate overnight. Wew would then plan to D/C the CBI and remove the catheter tomorrow morning History of Present Illness History of Present Illness Chief Complaint: Clot retention Narrative: Is a 76-year-old gentleman who has a history of urinary retention. He had undergone cystoscopy with transurethral resection of the prostate about a month ago. He was seen in our office toward the end of last week. He was doing quite well with a low residual urine volume and no hematuria. We discontinued his finasteride at that time. He returned to the emergency room yesterday with an inability to void and gross hematuria. He was found to have a large clot within the bladder. An irrigating catheter was placed and continuous bladder irrigation was begun. He has had occasional occlusion of the catheter since then. Review of Systems Narrative: No fevers or chills No diabetes or thyroid dysfunction No shortness of breath or hemoptysis No chest pain or palpitations Hx GERD. No nausea, vomiting No seizures, stroke PFSH All Active Problems (Updated 10/11/21 @ 08:59 by Alan Fuentes MD) Clot retention of urine (Acute) Acute urinary retention (Acute) Hematoma of bladder wall (Acute) Discharge planning issues (Acute) DVT prophylaxis (Acute) Cyst (Acute) Nonspecific 3.7 cm cystic lesion underlying the left gluteus minimus muscle at the hip on CT abdomen/pelvis 10/10/21 SIRS (systemic inflammatory response syndrome) (Acute) Hematuria (Acute) Femoral acetabular impingement (Acute) left hip Foreign body of knee, left, superficial (Acute) Spondylosis of lumbar region without myelopathy or radiculopathy (Chronic) Lumbar radicular pain (Chronic) Rotator cuff tear, right (Acute) Medical History (Updated 10/11/21 @ 08:59 by Alan Fuentes MD) Acute deep vein thrombosis (DVT) of brachial vein of right upper extremity (11/11/15) Allergic rhinitis BPH (benign prostatic hyperplasia) CKD (chronic kidney disease) Complete tear of right rotator cuff (10/14/15) GERD HLD (hyperlipidemia) Hypertension NAFLD (nonalcoholic fatty liver disease) Right carpal tunnel syndrome (05/12/16) Seborrheic keratoses Spinal stenosis Spondylolisthesis at L4-L5 level (10/24/16) Urinary retention Surgical History (Updated 10/10/21 @ 17:34 by Anita Ramirez MD) Endoscopic Carpal Tunnel release (06/07/16) Repair of inguinal hernia Rotator Cuff Repair (09/03/15) S/P TURP Family History (Updated 10/10/21 @ 19:05 by Anita Ramirez MD) Brother Diabetes Hypertension Brother Diabetes Hypertension Cancer skin cancer, unknown type Brother Hypertension Brother Hypertension Mother Nonalcoholic fatty liver disease Social History Smoking/Tobacco Use Status: Never Smoking risk assessment performed?: Yes Alcohol Intake: never Drug use: Never Substance use type: does not use Do you feel safe at home: Yes Do you feel safe in your relationship?: Yes Exam Narrative Exam Narrative: He looks comfortable at the present time He does not appear septic or toxic His catheter is draining clear fluid with CBI He is awake and alert I reviewed his CT scan on the PACS system. A large amount of clot is seen within the bladder Results Last Vital Signs Temp 36.5 C 10/11/21 07:54 Pulse 59 L 10/11/21 07:54 Resp 16 10/11/21 07:54 BP 131/79 10/11/21 07:54 Pulse Ox 95 10/11/21 07:54 Labs Result diagrams: 10/11/21 06:24 10/11/21 06:24 Labs: Laboratory Results - last 24 hr 10/10/21 10/10/21 10/10/21 09:08 09:08 09:55 WBC 16.80 H RBC 4.29 L Hgb 13.6 Hct 39.9 L MCV 93.0 MCH 31.7 MCHC 34.1 RDW 12.4 Plt Count 166 MPV 11.8 H Immature Gran % 0.5 Neutrophils % 76.7 Lymphocytes % 18.8 Monocytes % 3.5 Eosinophils % 0.1 Basophils % 0.4 Nucleated RBC % 0 Absolute Neutrophils 12.89 H Absolute Lymphocytes 3.16 Absolute Monocytes 0.59 Absolute Eosinophils 0.02 Absolute Basophils 0.07 VBG pH VBG pCO2 VBG pO2 VBG HCO3 VBG Total CO2 VBG O2 Saturation VBG Base Excess VBG Lactate Sodium 140 Potassium 3.9 Chloride 104 Carbon Dioxide 20.3 L Anion Gap 15.7 H BUN 27 H Creatinine 1.6 H Estimated GFR/1.73 m2 42.12 Glucose 182 H Calcium 8.9 Magnesium Total Bilirubin 0.6 AST 22 ALT 25 Alkaline Phosphatase 92 Total Protein 7.4 Albumin 4.1 Procalcitonin Urine Color Urine Clarity Urine pH Ur Specific [place] Urine Protein Urine Ketones Urine Blood Urine Nitrite Urine Bilirubin Urine Urobilinogen Ur Leukocyte Esterase Urine RBC Urine WBC Ur Epithelial Cells Urine Crystals Urine Bacteria Urine Casts Urine Mucus Ur Culture Indicated? Urine Glucose COVID-19 Source SARS-CoV-2 (PCR) Patient ABO/Rh Cancelled Antibody Screen 10/10/21 10/10/21 10/10/21 09:55 09:55 09:55 WBC RBC Hgb Hct MCV MCH MCHC RDW Plt Count MPV Immature Gran % Neutrophils % Lymphocytes % Monocytes % Eosinophils % Basophils % Nucleated RBC % Absolute Neutrophils Absolute Lymphocytes Absolute Monocytes Absolute Eosinophils Absolute Basophils VBG pH 7.38 VBG pCO2 39 L VBG pO2 63 VBG HCO3 23 VBG Total CO2 20 L VBG O2 Saturation 92 VBG Base Excess -3 L VBG Lactate 2.4 H* Sodium Potassium Chloride Carbon Dioxide Anion Gap BUN Creatinine Estimated GFR/1.73 m2 Glucose Calcium Magnesium Total Bilirubin AST ALT Alkaline Phosphatase Total Protein Albumin Procalcitonin < 0.1 Urine Color Urine Clarity Urine pH Ur Specific [place] Urine Protein Urine Ketones Urine Blood Urine Nitrite Urine Bilirubin Urine Urobilinogen Ur Leukocyte Esterase Urine RBC Urine WBC Ur Epithelial Cells Urine Crystals Urine Bacteria Urine Casts Urine Mucus Ur Culture Indicated? Urine Glucose COVID-19 Source SARS-CoV-2 (PCR) Patient ABO/Rh Antibody Screen 10/10/21 10/10/21 10/10/21 10:01 11:24 11:45 WBC RBC Hgb Hct MCV MCH MCHC RDW Plt Count MPV Immature Gran % Neutrophils % Lymphocytes % Monocytes % Eosinophils % Basophils % Nucleated RBC % Absolute Neutrophils Absolute Lymphocytes Absolute Monocytes Absolute Eosinophils Absolute Basophils VBG pH VBG pCO2 VBG pO2 VBG HCO3 VBG Total CO2 VBG O2 Saturation VBG Base Excess VBG Lactate Sodium Potassium Chloride Carbon Dioxide Anion Gap BUN Creatinine Estimated GFR/1.73 m2 Glucose Calcium Magnesium Total Bilirubin AST ALT Alkaline Phosphatase Total Protein Albumin Procalcitonin Urine Color Red Urine Clarity Cloudy Urine pH 7.0 Ur Specific [place] >= 1.030 H Urine Protein >=300 H Urine Ketones Negative Urine Blood Large H Urine Nitrite Negative Urine Bilirubin Negative Urine Urobilinogen 0.2 Ur Leukocyte Esterase Negative Urine RBC >50 H Urine WBC Ur Epithelial Cells Urine Crystals Urine Bacteria Urine Casts Urine Mucus Ur Culture Indicated? No Urine Glucose Negative COVID-19 Source Nasal/Nares SARS-CoV-2 (PCR) Negative Patient ABO/Rh O Positive Antibody Screen NEGATIVE 10/10/21 10/10/21 10/11/21 13:20 13:20 06:24 WBC RBC Hgb Hct MCV MCH MCHC RDW Plt Count MPV Immature Gran % Neutrophils % Lymphocytes % Monocytes % Eosinophils % Basophils % Nucleated RBC % Absolute Neutrophils Absolute Lymphocytes Absolute Monocytes Absolute Eosinophils Absolute Basophils VBG pH VBG pCO2 VBG pO2 VBG HCO3 VBG Total CO2 VBG O2 Saturation VBG Base Excess VBG Lactate 1.2 Sodium 141 141 Potassium 4.3 4.2 Chloride 105 108 H Carbon Dioxide 27.0 27.5 Anion Gap 9.0 5.5 BUN 27 H 23 H Creatinine 1.5 H 1.5 H Estimated GFR/1.73 m2 45.38 45.38 Glucose 111 H 97 Calcium 8.5 8.6 Magnesium 2.0 Total Bilirubin AST ALT Alkaline Phosphatase Total Protein Albumin Procalcitonin Urine Color Urine Clarity Urine pH Ur Specific [place] Urine Protein Urine Ketones Urine Blood Urine Nitrite Urine Bilirubin Urine Urobilinogen Ur Leukocyte Esterase Urine RBC Urine WBC Ur Epithelial Cells Urine Crystals Urine Bacteria Urine Casts Urine Mucus Ur Culture Indicated? Urine Glucose COVID-19 Source SARS-CoV-2 (PCR) Patient ABO/Rh Antibody Screen 10/11/21 06:24 WBC 11.68 H D RBC 3.73 L Hgb 11.6 L Hct 35.3 L MCV 94.6 MCH 31.1 MCHC 32.9 RDW 12.7 Plt Count 131 MPV 12.2 H Immature Gran % 0.3 Neutrophils % 57.3 Lymphocytes % 34.8 Monocytes % 6.4 Eosinophils % 1.0 Basophils % 0.2 Nucleated RBC % 0 Absolute Neutrophils 6.69 Absolute Lymphocytes 4.06 H Absolute Monocytes 0.75 Absolute Eosinophils 0.12 Absolute Basophils 0.02 VBG pH VBG pCO2 VBG pO2 VBG HCO3 VBG Total CO2 VBG O2 Saturation VBG Base Excess VBG Lactate Sodium Potassium Chloride Carbon Dioxide Anion Gap BUN Creatinine Estimated GFR/1.73 m2 Glucose Calcium Magnesium Total Bilirubin AST ALT Alkaline Phosphatase Total Protein Albumin Procalcitonin Urine Color Urine Clarity Urine pH Ur Specific [place] Urine Protein Urine Ketones Urine Blood Urine Nitrite Urine Bilirubin Urine Urobilinogen Ur Leukocyte Esterase Urine RBC Urine WBC Ur Epithelial Cells Urine Crystals Urine Bacteria Urine Casts Urine Mucus Ur Culture Indicated? Urine Glucose COVID-19 Source SARS-CoV-2 (PCR) Patient ABO/Rh Antibody Screen
--- NOTE | 2021-10-11 09:29 | INITIAL_ITS ---
- If Service Date Differs Date of service: 10/11/21 Time of Service: 09:29 Care Management Initial Assess REASON FOR HOSPITALIZATION:: Urinary Retention, Hematuria, SIRS PAST MEDICAL HISTORY/PAST SURGICAL HISTORY:: All Active Problems (Updated 10/10/21 @ 15:15 by NORMA Aldana). Acute urinary retention (Acute). Hematoma of bladder wall (Acute). Discharge planning issues (Acute). DVT prophylaxis (Acute). Cyst (Acute). Nonspecific 3.7 cm cystic lesion underlying the left gluteus minimus muscle. at the hip on CT abdomen/pelvis 10/10/21. SIRS (systemic inflammatory response syndrome) (Acute). Hematuria (Acute). Femoral acetabular impingement (Acute). left hip. Foreign body of knee, left, superficial (Acute). Spondylosis of lumbar region without myelopathy or radiculopathy (Chronic). Lumbar radicular pain (Chronic). Rotator cuff tear, right (Acute). Medical History (Updated 10/10/21 @ 15:15 by NORMA Aldana). Acute deep vein thrombosis (DVT) of brachial vein of right upper extremity (11/11/15). Allergic rhinitis. BPH (benign prostatic hyperplasia). CKD (chronic kidney disease). Complete tear of right rotator cuff (10/14/15). GERD. HLD (hyperlipidemia). Hypertension. NAFLD (nonalcoholic fatty liver disease). Right carpal tunnel syndrome (05/12/16). Seborrheic keratoses. Spinal stenosis. Spondylolisthesis at L4-L5 level (10/24/16). Urinary retention. Surgical History (Updated 10/10/21 @ 17:34 by Anita Ramirez MD). Endoscopic Carpal Tunnel release (06/07/16). Repair of inguinal hernia. Rotator Cuff Repair (09/03/15). S/P TURP PREVIOUS FUNCTIONAL STATUS/SOCIAL/FAMILY SUPPORTS:: Allen lives in [place] with his Josefina. 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 He is independent at baseline and drives. CURRENT FUNCTIONAL STATUS:: Allen was lying in bed when CM met with him. He is pleasant and able to easily engage in conversation although he is hard of hearing. Allen is planning on going to the OR for surgical intervention today. ADVANCE DIRECTIVES:: None on file, CM will offer forms Has patient been provided with info about the portal/API?: Yes Did the patient sign up for the portal?: No CODE STATUS:: Full Code INSURANCE COVERAGE / FINANCIAL ISSUES:: AARP. Medicare CURRENT HOME/COMMUNITY SERVICES/EQUIPMENT:: Allen uses a walker and cane-PRN PRIMARY CARE PHYSICIAN:: [facility] POTENTIAL DISCHARGE NEEDS:: Follow up appointments PATIENT/FAMILY EDUCATION NEEDS:: Review discharge instructions, limitations, medications and plan to follow up with community providers. Ask me three. TRANSPORTATION:: Via private vehicle with . PLAN:: Allen requires hospitalization for closemonitoring, medication manag ement and surgical intervention. Anticipate, Allen will discharge home with [facility] RN (if indicated) when medically ready. He will need follow up appointments with Urology and his PCP. CM will continue to support Allen and his discharge planning needs.
[2021-10-11] MEDS: Normal Saline 500 ML 30 ML IV (09:46)
[2021-10-11] MEDS: cefTRIAXone 2 GM/50 ML BAG IVPB (09:47)
[2021-10-11] MEDS: Normal Saline Flush 10 ML SYR IVP (09:47)
--- NOTE | 2021-10-11 10:31 | ANES.PREOP_ITS ---
General Info Date of Service Date Performed: 10/11/21 Height: 5 ft 10 in Weight: 85.275 kg Body Mass Index (BMI): 26.9 Surgical Procedure: Operation Date: 10/11/21 10:40 Proposed Procedure Side Surgeon p Cystoscopy/Clot Evacuation/Poss. Fulgration Alan Fuentes MD Meds Allergies and Home Medications Allergies Allergy/AdvReac Type Severity Reaction Status Date / Time tamsulosin Allergy Verified 10/10/21 12:19 Home Medication Medication Instructions Recorded omeprazole 10 mg capsule,delayed 20 mg PO DAILY 01/20/15 release magnesium 200 mg tablet 400 mg PO DAILY tab 12/10/20 potassium chloride 10 mEq 10 meq PO DAILY 12/10/20 tablet,extended release(part/cryst) fluticasone propionate 50 1 spray INTRANASAL DAILY PRN 08/13/21 mcg/actuation nasal spray,suspension rosuvastatin 20 mg tablet 20 mg PO DAILY 08/13/21 lisinopril 5 mg tablet 2.5 mg PO DAILY tab 08/26/21 furosemide 20 mg tablet 20 mg PO DAILY tab 09/10/21 Current Visit Medications: Current Medications Generic Name Dose Route Start Last Admin Trade Name Freq PRN Reason Stop Dose Admin Acetaminophen 0 mg 10/10/21 11:57 Acetaminophen 325 Mg Tab PO Q4H PRN PRN Al Hydrox/Mg Hydrox/Simethicone 30 ml 10/10/21 11:57 Mylanta Suspension 30 Ml Cup PO Q2H PRN PRN Dimethicone/Zinc Oxide 0 gm 10/10/21 11:52 Lisa Protect Cream 142 Gm Tube TP PRN PRN Docusate Sodium 100 mg 10/10/21 11:57 Docusate Sodium 100 Mg Cap PO TID PRN PRN Fluticasone Propionate 0 gm 10/11/21 07:13 Fluticasone Nasal [place] 16 Gm Btl NS DAILY PRN PRN Furosemide 20 mg 10/11/21 08:30 10/11/21 08:28 Furosemide 20 Mg Tab PO Not Given DAILY LIZETH Sodium Chloride 500 mls @ 0 mls/hr 10/10/21 11:52 10/11/21 09:46 Saline 500ml Bag IV 30 mls/hr PRN PRN Administration As Directed Ceftriaxone Sodium/Dextrose 2 gm in 50 mls @ 100 mls/hr 10/11/21 10:00 10/11/21 09:47 Rocephin IVPB 100 mls/hr Q24H LIZETH Administration IV Miscellaneous Supplies 1 each 10/10/21 12:00 Iv Access IV DIRECTED LIZETH Iohexol 100 ml 10/10/21 10:30 10/10/21 10:25 Omnipaque 350 Mg/Ml 100 Ml Btl IJ 11/09/21 23:59 100 ml DIRECTED LIZETH Administration Lisinopril 2.5 mg 10/11/21 08:30 10/11/21 08:27 Lisinopril 5 Mg Tab PO 2.5 mg DAILY LIZETH Administration Magnesium Hydroxide 30 ml 10/10/21 11:57 Milk Of Magnesia 30 Ml Cup PO DAILY PRN PRN Magnesium Oxide 400 mg 10/11/21 08:30 10/11/21 08:28 Magnesium Oxide 400 Mg Tab PO Not Given DAILY LIZETH Omeprazole 20 mg 10/11/21 08:30 10/11/21 08:28 Omeprazole 10 Mg Capcr PO Not Given DAILY LIZETH Potassium Chloride 10 meq 10/11/21 08:30 10/11/21 08:28 Potassium Chloride 10 Meq Tabcr PO Not Given DAILY LIZETH Rosuvastatin Calcium 20 mg 10/10/21 20:00 10/10/21 19:33 Rosuvastatin 10 Mg Tab PO 20 mg QPM LIZETH Administration Sodium Chloride 250 ml 10/10/21 10:30 10/10/21 10:24 Normal Saline 250 Ml Bag IJ 50 ml DIRECTED LIZETH Administration Sodium Chloride 0 ml 10/10/21 10:25 10/11/21 09:47 Normal Saline Flush 10 Ml Syr IVP 10 ml PRN PRN Administration Sodium Chloride 0 ml 10/10/21 11:52 Normal Saline Flush 10 Ml Syr IVP PRN PRN PFSH Active Problems Active Problems: Problem Status Onset Code Clot retention of urine R33.8 Acute urinary retention R33.8 Hematoma of bladder wall S37.22XA Discharge planning issues Z02.9 DVT prophylaxis Z29.9 Cyst SIRS (systemic inflammatory response syndrome) R65.10 Hematuria R31.9 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 Foreign body of knee, left, superficial S80.252A Spondylosis of lumbar region without myelopathy or radiculopathy M47.816 Lumbar radicular pain M54.16 Rotator cuff tear, right M75.101 Medical History Medical History (Updated 10/11/21 @ 08:59 by Alan Fuentes MD) Acute deep vein thrombosis (DVT) of brachial vein of right upper extremity (11/11/15) Allergic rhinitis BPH (benign prostatic hyperplasia) CKD (chronic kidney disease) Complete tear of right rotator cuff (10/14/15) GERD HLD (hyperlipidemia) Hypertension NAFLD (nonalcoholic fatty liver disease) Right carpal tunnel syndrome (05/12/16) Seborrheic keratoses Spinal stenosis Spondylolisthesis at L4-L5 level (10/24/16) Urinary retention Surgical History Surgical History (Updated 10/10/21 @ 17:34 by Anita Ramirez MD) Endoscopic Carpal Tunnel release (06/07/16) Repair of inguinal hernia Rotator Cuff Repair (09/03/15) S/P TURP Tobacco Smoking/Tobacco Use Status: Never Alcohol Alcohol Intake: never Substance Use Substance use: Never Substance use type: does not use Vital Signs and Lab Results Vital Signs Most Recent Vital Signs in EMR: Most Recent Vital Signs Temp Pulse Resp BP Pulse Ox 36.5 C 59 L 16 131/79 95 10/11/21 07:54 10/11/21 07:54 10/11/21 07:54 10/11/21 07:54 10/11/21 07:54 Lab Results Result Diagrams: 10/11/21 06:24 10/11/21 06:24 Blood Type / Crossmatch: Patient ABO/Rh O Positive 10/10/21 Antibody Screen NEGATIVE 10/10/21 Complete Blood Count: White Blood Count 11.68 10^3/uL (4.4-10.8) H 10/11/21 06:24 10/11/21 Red Blood Count 3.73 10^6/uL (4.36-5.78) L 10/11/21 06:24 10/11/21 Hemoglobin 11.6 g/dL (13.5-17.5) L 10/11/21 06:24 10/11/21 Hematocrit 35.3 % (40.0-50.0) L 10/11/21 06:24 10/11/21 Platelet Count 131 10^3/uL (130-400) 10/11/21 06:24 10/11/21 Venous Blood Lactate 1.2 mmol/L (0.6-1.4) 10/10/21 13:20 10/10/21 Complete Metabolic Panel: Sodium Level 141 mmol/L (136-145) 10/11/21 06:24 10/11/21 Potassium Level 4.2 mmol/L (3.5-5.1) 10/11/21 06:24 10/11/21 Chloride Level 108 mmol/L (98-107) H 10/11/21 06:24 10/11/21 Carbon Dioxide Level 27.5 mmol/L (21.0-32.0) 10/11/21 06:24 10/11/21 Blood Urea Nitrogen 23 mg/dL (7-18) H 10/11/21 06:24 10/11/21 Creatinine 1.5 mg/dL (0.70-1.30) H 10/11/21 06:24 10/11/21 Estimated GFR/1.73 m2 45.38 (mL/min/1.73m2) 10/11/21 06:24 10/11/21 Magnesium Level 2.0 mg/dL (1.8-2.4) 10/11/21 06:24 10/11/21 Calcium Level 8.6 mg/dL (8.5-10.1) 10/11/21 06:24 10/11/21 Albumin 4.1 g/dL (3.4-5.0) 10/10/21 09:08 10/10/21 Glucose Level 97 mg/dL (74-106) 10/11/21 06:24 10/11/21 Liver Function Panel: Alanine Aminotransferase (ALT/SGPT) 25 U/L (16-63) 10/10/21 09:08 10/10/21 Aspartate Amino Transf (AST/SGOT) 22 U/L (15-37) 10/10/21 09:08 10/10/21 Coagulation Panel: No Data to Display Cardiac Panel: No Data to Display Arterial Blood Gas: No Data to Display Venous Blood Gas: Venous Blood pH 7.38 (7.31-7.41) 10/10/21 09:55 10/10/21 Venous Blood Partial Pressure O2 63 mmHg 10/10/21 09:55 10/10/21 Venous Blood Partial Pressure CO2 39 mmHg (41-51) L 10/10/21 09:55 10/10/21 Venous Blood Oxygen Saturation 92 % 10/10/21 09:55 10/10/21 Venous Blood HCO3 23 mmol/L (23-28) 10/10/21 09:55 10/10/21 Venous Blood Base Excess -3 mmol/L (-2-3) L 10/10/21 09:55 10/10/21 Venous Blood Total Carbon Dioxide 20 mmol/L (24-29) L 10/10/21 09:55 10/10/21 Pancreas Panel: No Data to Display Thyroid Panel: No Data to Display Infectious Disease: Coronavirus (COVID-19)(PCR) Negative (Negative) 10/10/21 11:45 10/10/21 Coronavirus 2019 Source Nasal/Nares 10/10/21 11:45 10/10/21 Blood Cultures: No Data to Display Toxicology Panel: No Data to Display Imaging and Studies Imaging and Studies Study information below may be from another EMR and interpreted by another provider. Please see original notes in EMR for more complete details. Echocardiogram Summary: Conclusion Normal left ventricular wall thickness and chamber size. Estimated ejection fraction is 60%. There are no segmental wall motion abnormalities Normal right ventricular size and systolic function Both atria are normal in size There are no structural valvular abnormalities Mild to moderate mitral and tricuspid regurgitation. 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 09/18/20 Anesthesia Assessment and Plan Anesthesia History Personal History: No History of Anesthesia Complications Family History: No Family History of Anesthesia Complications Exercise Tolerance Exercise Tolerance: Metabolic Equivalents>4 Pertinent Negatives Pertinent Negatives: No Symptoms of GERD, No Major Cardiovascular Symptoms or Complaints and No Major Pulmonary Symptoms or Complaints Cardiac & Pulmonary Exam Cardiac Exam: Normal S1/S2 Heart Sounds Pulmonary Exam: Clear Bilateral Breath Sounds Implantable Cardiac Device Does patient have a Pacemaker or an ICD?: No Airway Exam Known Difficult Airway: No Mallampati Class: 3 Mouth Opening: Narrow (< 3cm) Thyromental Distance: Greater than 3 cm Neck Range of Motion: Full ROM Neck Circumference: Normal Teeth Condition: Generalized Poor Dentition and Other ([place] palsy many years ago, 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
[2021-10-11] MEDS: Lidocaine 2% Jelly 6 ML SYR (11:04)
--- NOTE | 2021-10-11 11:23 | ROE_ITS ---
Date of service: 10/11/21 Time of Service: 11:23 Operative Note Operative Note DATE OF PROCEDURE: 10/11/21 PRE-OP DIAGNOSIS: Clot retention POST-OP DIAGNOSIS: same PROCEDURE: Cystoscopy with clot evacuation SURGEON: Alan Fuentes ANESTHESIA TYPE: General:No Airway Refer to Anesthesia Record ESTIMATED BLOOD LOSS: 5 PATHOLOGY: none sent Patient was transported to: PACU Patient's condition: stable Implants: 22 [place] ochoa catheter with 30 cc in balloon Indications: This is a 76 year old man who underwent TURP for urinary retention @ 6 weeks ago. We recently discontinued his finasteride. He was doing well until he developed gross hematuria and clot retention this past weekend. His urine did not clear with continuous bladder irrigation. He presents for cystoscopy with clot evacuation. Findings: clot adherent to right side of prostate @ bladder neck Procedure Description: The patient was already on IV ceftriaxone when he was brought to the operating room on 10/11/2021. After successful induction of general anesthesia without intubation, he was placed in the dorsal lithotomy position. His indwelling Ochoa catheter was removed. His genitalia was prepped and draped. 2% Xylocaine jelly was instilled into the urethra to act as a local anesthetic. A 24 [place] resectoscope sheath was passed through the urethra into the bladder. We used a visual obturator and a 30 degree lens in passing the. The pendulous, bulbar and membranous urethra's appeared open with no strictures. The prostatic urethra showed some clot adherent at the right bladder neck. The bladder neck was entered and a large amount of clot was found within the bladder. We then hand irrigated out the clot using a Tom syringe. Once all clots had been removed, cystoscopy was again performed. The adherent clots on the bladder neck were taken down using an Undertone resectoscope and loop, however no cautery was utilized. At the completion of the procedure, no active bleeding was seen. The bladder was filled with irrigant. The resectoscope was removed and a 22 [place] hematuria catheter was passed through the urethra into the bladder. The catheter balloon was inflated with 30 cc of sterile water. Continuous bladder irrigation with saline was then begun. He was taken to the recovery room and will be returned to the [facility] unit following the procedure.
[2021-10-11] MEDS: Acetaminophen 325 MG TAB PO (11:45)
[2021-10-11] MEDS: Lidocaine 2% Jelly 11 ML SYR UR (11:45)
--- NOTE | 2021-10-11 12:42 | W.ANESPOSTOP ---
Postoperative Evaluation Date, Time and Location Date Performed: 10/11/21 Time Performed: 12:44 Patient Location: Med/Surg Vital Signs Most Recent Imported Vital Signs: Most Recent Vital Signs Temp Pulse Resp BP Pulse Ox 36.2 C L 70 18 120/74 96 10/11/21 12:40 10/11/21 12:40 10/11/21 12:40 10/11/21 12:40 10/11/21 12:40 Pain Score Most Recent Pain Score: Most Recent Pain Score Pain Level 4 10/11/21 12:40 Assessment Mental Status: Awake (Alert & Oriented to Patient Baseline) Airway and Respiratory Function: Patent airway with normal (patient baseline) respiratory exam Cardiovascular Function: Hemodynamically Stable Hydration Status: Adequately Hydrated Nausea & Vomiting: No Nausea or Vomiting Pain: Pain is tolerable per patient Peripheral Nerve Block: Patient did not receive a nerve block
[2021-10-11] MEDS: Rosuvastatin 10 MG TAB 20 MG PO (20:05)
[2021-10-12 06:11] VITALS: BP 127/69; PULSE 70; RESP 18; TEMP 36.7; O2SAT 97
[2021-10-12 06:48] LABS: Abs Immature Grans 0.03 10^3/uL (0.0-0.06); Absolute Basophil Count 0.05 10^3/uL (0.0-0.2); Absolute Eosinophil Count 0.28 10^3/uL (0.0-0.7); Absolute Lymphocyte Count 4.12 10^3/uL (1.2-3.4); Absolute Monocyte Count 0.62 10^3/uL (0.1-0.8); Absolute Neutrophil Count 5.56 10^3/uL (1.2-6.7); Basophils % 0.5; Eosinophils % 2.6; HGB 11.6 g/dL (13.5-17.5); Immature Grans % 0.3; Lymphocytes % 38.6; MCH 31.6 pg (27.0-33.0); MCHC 33.1 % (32.0-36.0); MCV 95.4 fL (80-95); MPV 12.1 fL (8.0-11.0); Monocytes % 5.8; Neutrophils % 52.2; Nucleated RBC 0 %; Platelet Count 116 10^3/uL (130-400); RBC 3.67 10^6/uL (4.36-5.78); RDW 12.7 % (11.8-14.1); RDW-SD 44.2 fL; WBC 10.66 10^3/uL (4.4-10.8)
[2021-10-12 06:59] LABS: Anion Gap 6.3 mmol/L (3-11); BUN 27 mg/dL (7-18); CO2 27.7 mmol/L (21.0-32.0); CREATININE 1.4 mg/dL (0.70-1.30); Calcium 8.4 mg/dL (8.5-10.1); Chloride 107 mmol/L (98-107); Estimated GFR 49.14 (mL/min/1.73m2); Glucose 95 mg/dL (74-106); Potassium 4.4 mmol/L (3.5-5.1); Sodium 141 mmol/L (136-145)
[2021-10-12 07:24] VITALS: BP 137/83; PULSE 75; RESP 16; TEMP 36.8; O2SAT 95
[2021-10-12] MEDS: Finasteride 5 MG TAB PO (08:03)
[2021-10-12] MEDS: Furosemide 20 MG TAB PO (08:03)
[2021-10-12] MEDS: Omeprazole 10 MG CAPCR 20 MG PO (08:03)
[2021-10-12] MEDS: Potassium Chloride 10 MEQ TABCR PO (08:03)
[2021-10-12] MEDS: Magnesium Oxide 400 MG TAB PO (08:04)
[2021-10-12] MEDS: Lisinopril 5 MG TAB 2.5 MG PO (08:04)
--- NOTE | 2021-10-12 08:56 | CMPROGNOTE_ITS ---
- If Service Date Differs Date of service: 10/12/21 Time of Service: 08:56 Care Management Progress Note S/O: A: 76 year old male admitted to [facility] on 10/10/21 for Urinary Retention, Hematuria, SIRS P: Allen requires hospitalization for close monitoring, medication management and surgical intervention. Anticipate, Allen will discharge home with New [facility] RN (if indicated) when medically ready. He will need follow up appointments with Urology and his PCP. CM will continue to support Allen and his discharge planning needs.
--- NOTE | 2021-10-12 09:54 | W.PM.DSUDISC ---
Discharge Plan Disposition Patient Disposition: HOME Condition: Stable Discharge Details Reason For Visit: Urinary Retention, Hematuria, SIRS Admit Date/Time: 10/10/21 11:55 Admit Provider: Anita Ramirez Attending Provider: Alan Fuentes Hospital Course Hospital Course: The patient was noted with clot retention. An irrigating catheter was placed and continuous bladder irrigation was maintained. We were unable to clear the clots with irrigation alone, so he was taken to the operating room on 10/11/2021. He underwent cystoscopy and clot evacuation. No active bleeding was seen. We continued bladder irrigation overnight and the urine remained clear. We removed the catheter on 10/12/2021 and he is being discharged to home after he passes his voiding trial. Home Meds and New Rx's Prescriptions: New finasteride 5 mg tablet 5 mg PO DAILY Qty: 30 0RF oxybutynin chloride 5 mg tablet 5 mg PO BID-TID PRN (Reason: bladder spasms) Qty: 20 0RF No Action magnesium 200 mg tablet 400 mg PO DAILY 0RF potassium chloride 10 mEq tablet,ER particles/crystals 10 meq PO DAILY 0RF lisinopril 5 mg tablet 2.5 mg PO DAILY 0RF furosemide 20 mg tablet 20 mg PO DAILY 0RF fluticasone propionate 50 mcg/actuation spray,suspension 1 spray intranasal DAILY PRN0RF Rx Instructions: administer into each nostril rosuvastatin 20 mg tablet 20 mg PO DAILY 0RF Label Comments: pt states not taking omeprazole 10 MG capsule,delayed release(DR/EC) 20 mg PO DAILY 0RF Discharge Instructions Additional Instructions: no lifting/straining for 1 to 2 weeks F/U in our office 2 to 4 weeks new scripts for finasteride and oxybutynin sent to pharmacy Activity:: no lifting over 10 pounds Equipment/Supplies:: No Equipment Needed Diet:: As Tolerated Discharge Data Discharge Comment: pt must void prior to discharge DS: Diagnosis Discharge Diagnosis (1) Clot retention of urine: Status: Acute
[2021-10-12] MEDS: Normal Saline Flush 10 ML SYR IVP (09:58)
--- NOTE | 2021-10-12 10:01 | W.PM.DS.N ---
Date of service: 10/12/21 Time of Service: 10:01 DS: Diagnosis Discharge Diagnosis (1) Clot retention of urine: Status: Acute Discharge Plan Disposition Patient Disposition: HOME Condition: Stable Discharge Details Reason For Visit: Urinary Retention, Hematuria, SIRS Admit Date/Time: 10/10/21 11:55 Admit Provider: Anita Ramirez Attending Provider: Alan Fuentes Hospital Course Hospital Course: The patient was noted with clot retention. An irrigating catheter was placed and continuous bladder irrigation was maintained. We were unable to clear the clots with irrigation alone, so he was taken to the operating room on 10/11/2021. He underwent cystoscopy and clot evacuation. No active bleeding was seen. We continued bladder irrigation overnight and the urine remained clear. We removed the catheter on 10/12/2021 and he is being discharged to home after he passes his voiding trial. Home Meds and New Rx's Prescriptions: New finasteride 5 mg tablet 5 mg PO DAILY Qty: 30 0RF oxybutynin chloride 5 mg tablet 5 mg PO BID-TID PRN (Reason: bladder spasms) Qty: 20 0RF No Action magnesium 200 mg tablet 400 mg PO DAILY 0RF potassium chloride 10 mEq tablet,ER particles/crystals 10 meq PO DAILY 0RF lisinopril 5 mg tablet 2.5 mg PO DAILY 0RF furosemide 20 mg tablet 20 mg PO DAILY 0RF fluticasone propionate 50 mcg/actuation spray,suspension 1 spray intranasal DAILY PRN0RF Rx Instructions: administer into each nostril rosuvastatin 20 mg tablet 20 mg PO DAILY 0RF Label Comments: pt states not taking omeprazole 10 MG capsule,delayed release(DR/EC) 20 mg PO DAILY 0RF Discharge Instructions Additional Instructions: no lifting/straining for 1 to 2 weeks F/U in our office 2 to 4 weeks new scripts for finasteride and oxybutynin sent to pharmacy Activity:: no lifting over 10 pounds Equipment/Supplies:: No Equipment Needed Diet:: As Tolerated Discharge Orders Discharge Orders: Discharge Order (Routine); Ordered 10/12/21 Ordered By: Alan Fuentes Discharge Data Discharge Comment: pt must void prior to discharge DS: Summary Time Spent with Patient providing and/or coordinating discharge services: Greater than 30 minutes Status at Discharge Functional status at discharge: independent ambulation Overall status at discharge: patient is back to baseline Mental Status: mental status grossly normal Speech and Movement: speech and movement normal Mood: congruent mood Affect: normal affect Exam Narrative Exam Narrative: At the time of this charge, the patient appears comfortable. He does not appear septic or toxic His vital signs are documented elsewhere His lungs are clear Cardiac exam shows a regular rate and rhythm His abdomen is soft. His bladder is not distended He is awake and alert His catheter has been successfully removed. Psych Mental Status: mental status grossly normal Speech and Movement: speech and movement normal Mood: congruent mood Affect: normal affect DS: Data Vitals/I&O Vitals and I&O: Vital Signs Temperature 36.8 C 10/12/21 07:24 Temperature Source Tympanic 10/12/21 07:24 Pulse 75 10/12/21 07:24 Pulse Rhythm Regular 10/11/21 23:45 Pulse 86 10/10/21 12:31 Respiratory Rate 16 10/12/21 07:24 Respiratory Effort Non-Labored 10/12/21 07:26 Respiratory Depth Normal 10/12/21 07:26 Respiratory Pattern Normal 10/12/21 07:26 Blood Pressure 137/83 10/12/21 07:24 Blood Pressure Mean 79 10/10/21 12:30 Blood Pressure Position Sitting 10/10/21 08:38 Pulse Oximetry 95 10/12/21 07:24 Oxygen Delivery Method Room Air 10/12/21 07:24 Oxygen Flow Rate 0 10/12/21 07:24 Pain Level 2 10/12/21 07:24 Intake & Output 10/11/21 10/11/21 10/12/21 11:59 23:59 11:59 Intake Total 309 / 559 250 / 559 Balance 309 / 559 250 / 559 Weight 85.275 kg 87.5 kg Intake: IV 309 / 319 10 / 319 Oral 240 / 240 Other: Urine Color [place] Pale Pale Urine Appearance Hematuria Clear Clear Comment Three way irrigation emptied at this time. No clots noted. Output is pale and clear. hung 3000ml saline bag Stool Size Large Stool Characteristics Formed Brown Data Completed and Pending Completed studies during hospitalization [Text1]: urine culture unremarkable Labs on day of discharge: Labs from last 24 hours 10/12/21 10/12/21 06:10 06:10 WBC 10.66 RBC 3.67 L Hgb 11.6 L Hct 35.0 L MCV 95.4 H MCH 31.6 MCHC 33.1 RDW 12.7 Plt Count 116 L MPV 12.1 H Immature Gran % 0.3 Neutrophils % 52.2 Lymphocytes % 38.6 Monocytes % 5.8 Eosinophils % 2.6 Basophils % 0.5 Nucleated RBC % 0 Absolute Neutrophils 5.56 Absolute Lymphocytes 4.12 H Absolute Monocytes 0.62 Absolute Eosinophils 0.28 Absolute Basophils 0.05 Sodium 141 Potassium 4.4 Chloride 107 Carbon Dioxide 27.7 Anion Gap 6.3 BUN 27 H Creatinine 1.4 H Estimated GFR/1.73 m2 49.14 Glucose 95 Calcium 8.4 L Preliminary micro results at discharge 10/10/21 11:36 Blood Culture - Preliminary Blood NO GROWTH 24 HOURS 10/10/21 11:24 Blood Culture - Preliminary Blood NO GROWTH 24 HOURS PFSH All Active Problems (Updated 10/11/21 @ 08:59 by Alan Fuentes MD) Clot retention of urine (Acute) Acute urinary retention (Acute) Hematoma of bladder wall (Acute) Discharge planning issues (Acute) DVT prophylaxis (Acute) Cyst (Acute) Nonspecific 3.7 cm cystic lesion underlying the left gluteus minimus muscle at the hip on CT abdomen/pelvis 10/10/21 SIRS (systemic inflammatory response syndrome) (Acute) Hematuria (Acute) Femoral acetabular impingement (Acute) left hip Foreign body of knee, left, superficial (Acute) Spondylosis of lumbar region without myelopathy or radiculopathy (Chronic) Lumbar radicular pain (Chronic) Rotator cuff tear, right (Acute) Medical History (Updated 10/11/21 @ 08:59 by Alan Fuentes MD) Acute deep vein thrombosis (DVT) of brachial vein of right upper extremity (11/11/15) Allergic rhinitis BPH (benign prostatic hyperplasia) CKD (chronic kidney disease) Complete tear of right rotator cuff (10/14/15) GERD HLD (hyperlipidemia) Hypertension NAFLD (nonalcoholic fatty liver disease) Right carpal tunnel syndrome (05/12/16) Seborrheic keratoses Spinal stenosis Spondylolisthesis at L4-L5 level (10/24/16) Urinary retention Surgical History (Updated 10/10/21 @ 17:34 by Anita Ramirez MD) Endoscopic Carpal Tunnel release (06/07/16) Repair of inguinal hernia Rotator Cuff Repair (09/03/15) S/P TURP Family History (Updated 10/10/21 @ 19:05 by Anita Ramirez MD) Brother Diabetes Hypertension Brother Diabetes Hypertension Cancer skin cancer, unknown type Brother Hypertension Brother Hypertension Mother Nonalcoholic fatty liver disease Social History Smoking/Tobacco Use Status: Never Smoking risk assessment performed?: Yes Alcohol Intake: never Drug use: Never Substance use type: does not use Do you feel safe at home: Yes Do you feel safe in your relationship?: Yes
--- NOTE | 2021-10-12 10:19 | W.PM.PROGNOT ---
Date of Service Date of service: 10/12/21 Time of Service: 10:19 Assessment and Plan Assessment and plan (1) Clot retention of urine: Status: Acute Assessment and plan: I removed his Sapp catheter this morning. I have encouraged him to drink plenty of fluid for a voiding trial. He will be able to go home later today as long as he is voiding. He will not need any antibiotics at home, but I have asked him to restart his finasteride 5 mg daily for the next month or so. We will use as needed oxybutynin should he have any bladder spasms. Subjective Subjective Interval history since last seen: He remained comfortable overnight with no clot retention. He was able to move his bowels earlier this morning. Exam Narrative Exam Narrative: His exam is documented in his discharge summary Objective Last Vital Signs Temp 36.8 C 10/12/21 07:24 Pulse 75 10/12/21 07:24 Resp 16 10/12/21 07:24 BP 137/83 10/12/21 07:24 Pulse Ox 95 10/12/21 07:24 Laboratory Results - last 24 hr 10/12/21 10/12/21 06:10 06:10 WBC 10.66 RBC 3.67 L Hgb 11.6 L Hct 35.0 L MCV 95.4 H MCH 31.6 MCHC 33.1 RDW 12.7 Plt Count 116 L MPV 12.1 H Immature Gran % 0.3 Neutrophils % 52.2 Lymphocytes % 38.6 Monocytes % 5.8 Eosinophils % 2.6 Basophils % 0.5 Nucleated RBC % 0 Absolute Neutrophils 5.56 Absolute Lymphocytes 4.12 H Absolute Monocytes 0.62 Absolute Eosinophils 0.28 Absolute Basophils 0.05 Sodium 141 Potassium 4.4 Chloride 107 Carbon Dioxide 27.7 Anion Gap 6.3 BUN 27 H Creatinine 1.4 H Estimated GFR/1.73 m2 49.14 Glucose 95 Calcium 8.4 L
--- NOTE | 2021-10-12 15:27 | CHAPLAIN ---
Allen remembered me from when we met when he was admitted, five weeks ago, he said. He likes Dr. Fuentes very much and after Dr. Fuentes's visit this morning, it is likely Allen will be discharged later today.
[2021-10-12 15:30] VITALS: BP 144/77; PULSE 63; RESP 18; TEMP 36.7; O2SAT 96
--- NOTE | 2021-10-12 17:31 | CMDISCH_ITS ---
- If Service Date Differs Date of service: 10/12/21 Time of Service: 17:31 LACE Index Scoring Tool - Questions: Length of Stay (in days): 2 Acuity (Admit via E.D.?): Yes Comorbidities: Mild Liver/Renal Disease E.D. Visits: 6 - Answers: Total Score: 11 Risk of Readmission: High Risk Care Management Discharge Reason for Hospitalization: Urinary Retention, Hematuria, SIRS Discharge Plan: Discharge home via private vehicle with . Allen will follow up with urology and community providers and discharge plan of care as prescrined. No [facility] services are indicated at this time. Patient/Family Education Needs: Review discharge instructions, limitations, medications and plan to follow up with community providers. ask me three.
== END 2021-10-12 17:42 | disposition home or self-care (01) | DRG 920 ==
LOC: ER 12:19 → MS 15:15
PROVIDERS: Nurse Practitioner Family; Admitting Provider Internal Medicine; Emergency Provider Physician Assistant; Visit Provider Urology
PROC: 0TBB8ZZ Excision of Bladder, Via Natural or Artificial Opening Endoscopic (ICD-10-PCS; CPT 52001; principal; 2021-10-11 10:30)
DX: N99.840 Postprocedural hematoma of a genitourinary system organ or structure following a genitourinary system procedure (principal); R65.10 Systemic inflammatory response syndrome (SIRS) of non-infectious origin without acute organ dysfunction; R33.9 Retention of urine, unspecified; R31.0 Gross hematuria; M48.061 Spinal stenosis, lumbar region without neurogenic claudication; I12.9 Hypertensive chronic kidney disease with stage 1 through stage 4 chronic kidney disease, or unspecified chronic kidney disease; N18.30 Chronic kidney disease, stage 3 unspecified; E78.5 Hyperlipidemia, unspecified; Z86.718 Personal history of other venous thrombosis and embolism; K21.9 Gastro-esophageal reflux disease without esophagitis; K76.0 Fatty (change of) liver, not elsewhere classified
CPT/HCPCS: 52001; 36410; 36415; 80048; 80053; 82805; 84145; 86850; 86900; 86901; 87040; 87635; 99222; 99239; 71045; 74178; 81003; 81015; 83605; 83735; 85025; 87086; 99223; J1885; J2001; J3490

== ENCOUNTER → 2021-10-11 08:08 | Outpatient (BNVA) | payer MEDICARE, SELFPAY | PROVIDERS: Visit Provider Urology | DX: R69 Illness, unspecified (principal) ==

== ENCOUNTER → 2021-11-02 13:26 | Outpatient (BNVA) | payer MEDICARE, SELFPAY | PROVIDERS: Visit Provider Nurse Practitioner Gerontology | DX: R33.8 Other retention of urine (principal) | CPT/HCPCS: 51798; 81003; 99214 ==

== ENCOUNTER → 2022-03-23 12:56 | Outpatient (CLI) | payer MEDICARE, SELFPAY ==
--- NOTE | 2022-03-23 11:57 | DI.RAD_ITS ---
Exam(s) XR THUMB LT EXAM: XR THUMB LT CLINICAL HISTORY: LEFT TRIGGER THUMB--M65.312, RULE OUT FX. TECHNIQUE: 2D digital imaging was performed. COMPARISON: CR XR THUMB RT from 06/24/2020 FINDINGS: 3 views No evidence of acute fracture. However, there is a subtle bony density off the lateral aspect of the metacarpophalangeal joint of the thumb. Possibly significant. No erosions. No degenerative change s at this level. Mild degenerative changes in the interphalangeal joint and 1st carpometacarpal join t. No osseous lesions. IMPRESSION: DATA REPOSITORY: RADIATION DOSE DELIVERED:
== END ==
PROVIDERS: Visit Provider Nurse Practitioner Family
DX: M65.312 Trigger thumb, left thumb (principal); M18.12 Unilateral primary osteoarthritis of first carpometacarpal joint, left hand
CPT/HCPCS: 73140

== ENCOUNTER → 2022-04-06 10:32 | Outpatient (BNVA) | payer MEDICARE, SELFPAY | PROVIDERS: Visit Provider Nurse Practitioner Gerontology | DX: R33.8 Other retention of urine (principal) | CPT/HCPCS: 51798; 99214 ==

== ENCOUNTER → 2022-04-08 09:15 | Outpatient (BNVA) | payer MEDICARE, SELFPAY | PROVIDERS: PCP Family Medicine; Referring Provider Family Medicine; Visit Provider Student in an Organized Health Care Education/Training Program | DX: X58.XXXA Exposure to other specified factors, initial encounter (principal); S63.642A Sprain of metacarpophalangeal joint of left thumb, initial encounter; M25.342 Other instability, left hand | CPT/HCPCS: 99213 ==

== ENCOUNTER 2022-04-25 03:03 | Outpatient (CLI) | payer MEDICARE, SELFPAY ==
[2022-04-25 09:25] LABS: HCT 43.1 % (40.0-50.0); HGB 14.5 g/dL (13.5-17.5); MCH 30.9 pg (27.0-33.0); MCHC 33.6 % (32.0-36.0); MCV 92 fL (80-95); MPV 12.2 fL (8.0-11.0); Platelet Count 118 10^3/uL (130-400); RBC 4.69 10^6/uL (4.36-5.78); RDW-SD 40.4 fL; WBC 7.46 10^3/uL (4.4-10.8)
[2022-04-25 09:34] LABS: Bilirubin Negative (Negative); Blood Negative (Negative); Clarity Clear (Clear); Glucose Negative (Negative); Ketones Negative (Negative); Leukocyte Esterase Negative (Negative); Nitrite Negative (Negative); Urobilinogen 0.2 EU/dL (Up TO 0.2); pH 5.5 (5-8)
[2022-04-25 10:04] LABS: ALT 37 U/L (16-63); AST 34 U/L (15-37); Albumin 4.2 g/dL (3.4-5.0); Alkaline Phosphatase 88 U/L (46-116); Anion Gap 8.2 mmol/L (3-11); BUN 30 mg/dL (7-18); Bilirubin, Total 0.7 mg/dL (0.2-1.0); CO2 28.8 mmol/L (21.0-32.0); CREATININE 1.6 mg/dL (0.70-1.30); Calcium 9.4 mg/dL (8.5-10.1); Calculated LDL 67 mg/dL (<100); Chloride 105 mmol/L (98-107); Cholesterol 136 mg/dL (<200); Estimated GFR 43.83 (mL/min/1.73m2); Glucose 88 mg/dL (74-106); HDL Cholesterol 58 mg/dL (40-60); Potassium 3.8 mmol/L (3.5-5.1); Sodium 142 mmol/L (136-145); Total Protein 7.6 g/dL (6.4-8.2); Triglyceride 58 mg/dL (<150)
== END 2022-04-25 03:04 | disposition home or self-care (01) ==
LOC: LBO 03:03
PROVIDERS: PCP Family Medicine; Visit Provider Family Medicine
DX: E78.5 Hyperlipidemia, unspecified (principal); I10 Essential (primary) hypertension; N18.9 Chronic kidney disease, unspecified
CPT/HCPCS: 36415; 80053; 80061; 85027; 81003

== ENCOUNTER → 2022-05-16 09:47 | Outpatient (BNVA) | payer MEDICARE, SELFPAY | PROVIDERS: PCP Family Medicine; Referring Provider Family Medicine; Visit Provider Student in an Organized Health Care Education/Training Program | DX: M25.342 Other instability, left hand (principal); S63.642A Sprain of metacarpophalangeal joint of left thumb, initial encounter; X58.XXXA Exposure to other specified factors, initial encounter; M25.852 Other specified joint disorders, left hip | CPT/HCPCS: 99214 ==

== ENCOUNTER 2022-10-22 10:06 | Outpatient (CLI) | payer MEDICARE, SELFPAY ==
--- NOTE | 2022-10-22 | DI.RAD_ITS ---
Exam(s) XR TIB/FIB RT EXAM: XR TIB/FIB RT CLINICAL HISTORY: Blunt trauma to RT tib/fib last monday with increasing pain.. TECHNIQUE: 2D digital imaging was performed. Two views. COMPARISON: No exams were available for comparison FINDINGS: BONES: No acute fracture is present. Small chronic appearing bony density beneath the tip of the lat eral malleolus. No bony destructive lesion is seen. Visualized portion of knee and ankle joints are unremarkable. SOFT TISSUE: Mild diffuse edema. IMPRESSION: No acute abnormality. DATA REPOSITORY: RADIATION DOSE DELIVERED:
--- NOTE | 2022-10-22 11:18 | DI.VRAD_ITS ---
PROCEDURE INFORMATION: Exam: XR Right Tibia and Fibula Exam date and time: 10/22/2022 10:15 AM Age: 77 years old Clinical indication: Right; Patient HX: Rle struck by heavy bench last Monday - increasing pain. Bruising and swelling in RT lower valderrama/ankle. TECHNIQUE: Imaging protocol: Radiologic exam of the right tibia and fibula. Views: 2 views. COMPARISON: No relevant prior studies available. FINDINGS: Bones/joints: No acute fracture. Corticated bone inferior to the lateral malleolus. Soft tissues: Soft tissue swelling. IMPRESSION: No fracture. Dictated and Authenticated by: Jose Alejandro Garcia MD. Ordering:JR Modi MD
== END 2022-10-22 10:26 ==
LOC: DI 10:06
PROVIDERS: PCP Family Medicine; Visit Provider Physician Assistant Medical
DX: M79.604 Pain in right leg (principal)
CPT/HCPCS: 73590

== ENCOUNTER 2022-10-25 13:00 | Outpatient (CLI) | payer MEDICARE, SELFPAY ==
[2022-10-25 12:31] LABS: Abs Immature Grans 0.03 10^3/uL (0.0-0.06); Absolute Basophil Count 0.07 10^3/uL (0.0-0.2); Absolute Eosinophil Count 0.19 10^3/uL (0.0-0.7); Absolute Lymphocyte Count 4.02 10^3/uL (1.2-3.4); Absolute Monocyte Count 0.53 10^3/uL (0.1-0.8); Absolute Neutrophil Count 5.57 10^3/uL (1.2-6.7); Basophils % 0.7; Eosinophils % 1.8; HCT 42.5 % (40.0-50.0); HGB 14.3 g/dL (13.5-17.5); Immature Grans % 0.3; Lymphocytes % 38.6; MCH 30.8 pg (27.0-33.0); MCHC 33.6 % (32.0-36.0); MCV 92 fL (80-95); MPV 11.7 fL (8.0-11.0); Monocytes % 5.1; Neutrophils % 53.5; Platelet Count 139 10^3/uL (130-400); RBC 4.64 10^6/uL (4.36-5.78); RDW 12.1 % (11.8-14.1); RDW-SD 40.1 fL; WBC 10.41 10^3/uL (4.4-10.8)
[2022-10-25 13:32] LABS: ALT 35 U/L (16-63); AST 27 U/L (15-37); Alkaline Phosphatase 97 U/L (46-116); Anion Gap 4.8 mmol/L (3-11); BUN 35 mg/dL (7-18); Bilirubin, Total 0.4 mg/dL (0.2-1.0); CO2 32.2 mmol/L (21.0-32.0); CREATININE 1.8 mg/dL (0.70-1.30); Calcium 9.4 mg/dL (8.5-10.1); Chloride 105 mmol/L (98-107); Estimated GFR 38.05 (mL/min/1.73m2); Glucose 94 mg/dL (74-106); Sodium 142 mmol/L (136-145); Total Protein 7.5 g/dL (6.4-8.2)
== END 2022-10-25 13:01 | disposition home or self-care (01) ==
LOC: LBO 13:01
PROVIDERS: PCP Family Medicine; Visit Provider Nurse Practitioner Family
DX: L03.115 Cellulitis of right lower limb (principal); Z79.899 Other long term (current) drug therapy
CPT/HCPCS: 36415; 80053; 85025; 93971

== ENCOUNTER 2022-10-25 13:08 | Outpatient (CLI) | payer MEDICARE, SELFPAY ==
--- NOTE | 2022-10-25 | DI.US_ITS ---
Exam(s) US LOWER EXTREMITY VENOUS RT EXAM: US LOWER EXTREMITY VENOUS RT CLINICAL HISTORY: PAIN RT LOWER LEG M79.661 ? DVT, EVAL ANTERIOR [place] AT SITE OF INJURY TECHNIQUE: Right lower extremity venous ultrasound performed using grayscale, color-flow, and spectr al Doppler analysis. COMPARISON: No exams were available for comparison FINDINGS: The right common femoral, femoral and popliteal veins demonstrate normal compressibility, augmentatio n, and color Doppler. The posterior tibial veins are patent. The saphenofemoral junction is unremark able. There is no evidence of a Curry cyst. There is a 1.4 x 0.6 x 1.0 cm anechoic avascular collec tion in the right calf corresponding to a site of recent trauma. This may represent a resolving sterling gabriela. IMPRESSION: 1. No evidence of a right lower extremity DVT. 2. 1.4 x 0.6 x 1.0 cm anechoic avascular fluid collection at the site of recent trauma. This may rep resent a resolving hematoma. DATA REPOSITORY:
== END 2022-10-25 13:28 ==
PROVIDERS: PCP Family Medicine; Visit Provider Nurse Practitioner Family
DX: M79.661 Pain in right lower leg (principal)
CPT/HCPCS: 93971

== ENCOUNTER → 2022-10-31 09:55 | Outpatient (BNVA) | payer MEDICARE, SELFPAY | PROVIDERS: PCP Family Medicine; Referring Provider Family Medicine; Visit Provider Surgery | DX: L03.115 Cellulitis of right lower limb (principal) | CPT/HCPCS: 99202; 99215 ==

== ENCOUNTER → 2023-04-05 10:57 | Outpatient (BNVA) | payer MEDICARE, SELFPAY | PROVIDERS: PCP Family Medicine; Referring Provider Family Medicine; Visit Provider Nurse Practitioner Gerontology | DX: R33.9 Retention of urine, unspecified (principal); Z98.890 Other specified postprocedural states | CPT/HCPCS: 51798; 99213 ==

== ENCOUNTER 2023-04-28 01:21 | Outpatient (CLI) | payer MEDICARE, SELFPAY ==
[2023-04-28 08:16] LABS: Abs Immature Grans 0.02 10^3/uL (0.0-0.06); Absolute Basophil Count 0.08 10^3/uL (0.0-0.2); Absolute Eosinophil Count 0.16 10^3/uL (0.0-0.7); Absolute Lymphocyte Count 4.26 10^3/uL (1.2-3.4); Absolute Monocyte Count 0.39 10^3/uL (0.1-0.8); Absolute Neutrophil Count 3.38 10^3/uL (1.2-6.7); Eosinophils % 1.9; HGB 15.3 g/dL (13.5-17.5); Immature Grans % 0.2; Lymphocytes % 51.4; MCH 31.2 pg (27.0-33.0); MCV 92 fL (80-95); Monocytes % 4.7; Neutrophils % 40.8; Platelet Count 115 10^3/uL (130-400); RDW 11.9 % (11.8-14.1); RDW-SD 39.9 fL; WBC 8.29 10^3/uL (4.4-10.8)
[2023-04-28 08:18] LABS: Bilirubin Negative (Negative); Blood Negative (Negative); Clarity Clear (Clear); Glucose Negative (Negative); Ketones Negative (Negative); Leukocyte Esterase Negative (Negative); Nitrite Negative (Negative); Urobilinogen 0.2 mg/dL (Up to 0.2); pH 5.5 (5-8)
[2023-04-28 08:53] LABS: ALT 25 U/L (16-63); AST 26 U/L (15-37); Albumin 4.2 g/dL (3.4-5.0); Alkaline Phosphatase 92 U/L (46-116); Anion Gap 8.6 mmol/L (3-11); BUN 27 mg/dL (7-18); Bilirubin, Total 0.6 mg/dL (0.2-1.0); CO2 28.4 mmol/L (21.0-32.0); CREATININE 1.5 mg/dL (0.70-1.30); Calcium 9.9 mg/dL (8.5-10.1); Calculated LDL 76 mg/dL (<100); Chloride 107 mmol/L (98-107); Cholesterol 147 mg/dL (<200); Estimated GFR 47.06 (mL/min/1.73m2); Glucose 94 mg/dL (74-106); HDL Cholesterol 50 mg/dL (40-60); Sodium 144 mmol/L (136-145); Total Protein 7.6 g/dL (6.4-8.2); Triglyceride 108 mg/dL (<150)
[2023-04-28 20:41] LABS: PSA, Screening 0.2 ng/mL (<=6.5)
== END 2023-04-28 01:22 | disposition home or self-care (01) ==
LOC: LBO 01:22
PROVIDERS: PCP Family Medicine; Visit Provider Family Medicine
DX: E78.49 Other hyperlipidemia (principal); Z12.5 Encounter for screening for malignant neoplasm of prostate; N18.32 Chronic kidney disease, stage 3b; K75.81 Nonalcoholic steatohepatitis (NASH); Z00.00 Encounter for general adult medical examination without abnormal findings; I10 Essential (primary) hypertension
CPT/HCPCS: 36415; 80053; 80061; 84153; 81003; 85025

== ENCOUNTER → 2024-04-03 10:22 | Outpatient (BNVA) | payer MEDICARE, SELFPAY | PROVIDERS: PCP Family Medicine; Visit Provider Nurse Practitioner Gerontology | DX: R33.8 Other retention of urine (principal) | CPT/HCPCS: 51798; 99214 ==

== ENCOUNTER 2024-05-03 02:00 | Outpatient (CLI) | payer MEDICARE, SELFPAY ==
[2024-05-03 08:04] LABS: Abs Immature Grans 0.03 10^3/uL (0.0-0.06); Absolute Basophil Count 0.06 10^3/uL (0.0-0.2); Absolute Eosinophil Count 0.22 10^3/uL (0.0-0.7); Absolute Lymphocyte Count 4.36 10^3/uL (1.2-3.4); Absolute Monocyte Count 0.44 10^3/uL (0.1-0.8); Absolute Neutrophil Count 3.42 10^3/uL (1.2-6.7); Basophils % 0.7 %; Eosinophils % 2.6 %; HCT 44.9 % (40.0-50.0); HGB 15.1 g/dL (13.5-17.5); Immature Grans % 0.4 %; Lymphocytes % 51.1 %; MCH 31.7 pg (27.0-33.0); MCHC 33.6 % (32.0-36.0); MCV 94 fL (80-95); MPV 12.6 fL (8.0-11.0); Monocytes % 5.2 %; Platelet Count 114 10^3/uL (130-400); RBC 4.76 10^6/uL (4.36-5.78); RDW 11.8 % (11.8-14.1); RDW-SD 40.9 fL; WBC 8.53 10^3/uL (4.4-10.8)
[2024-05-03 08:08] LABS: Bilirubin Negative (Negative); Blood Negative (Negative); Clarity Clear (Clear); Glucose Negative (Negative); Ketones Negative (Negative); Leukocyte Esterase Negative (Negative); Nitrite Negative (Negative); Specific Gravity 1.015 (1.005-1.025); Urobilinogen 0.2 mg/dL (Up to 0.2)
[2024-05-03 08:24] LABS: ALT 24 U/L (16-63); AST 21 U/L (15-37); Albumin 3.9 g/dL (3.4-5.0); Alkaline Phosphatase 87 U/L (46-116); Anion Gap 7.3 mmol/L (3-11); BUN 29 mg/dL (7-18); Bilirubin, Total 0.73 mg/dL (0.2-1.0); CO2 28.7 mmol/L (21.0-32.0); CREATININE 1.6 mg/dL (0.70-1.30); Calcium 9.4 mg/dL (8.5-10.1); Calculated LDL 63 mg/dL (<100); Chloride 106 mmol/L (98-107); Cholesterol 139 mg/dL (<200); Estimated GFR 43.29 (mL/min/1.73m2); Glucose 94 mg/dL (74-106); HDL Cholesterol 50 mg/dL (40-60); Sodium 142 mmol/L (136-145); Total Protein 7.3 g/dL (6.4-8.2); Triglyceride 133 mg/dL (<150)
[2024-05-03 18:55] LABS: PSA, Screening 0.3 ng/mL (<=6.5)
== END 2024-05-03 02:01 | disposition home or self-care (01) ==
PROVIDERS: PCP Family Medicine; Visit Provider Family Medicine
DX: I10 Essential (primary) hypertension (principal); Z12.5 Encounter for screening for malignant neoplasm of prostate; N40.0 Benign prostatic hyperplasia without lower urinary tract symptoms
CPT/HCPCS: 36415; 80053; 80061; 84153; 81003; 85025

== ENCOUNTER 2024-06-10 01:46 | Outpatient (CLI) | payer MEDICARE, SELFPAY ==
--- NOTE | 2024-06-10 | DI.RAD_ITS ---
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 TECHNIQUE: 2D digital imaging was performed. COMPARISON: CR XR HIP LT COMPLETE AP PELVIS from 12/10/2020 FINDINGS: Two views No evidence of pelvic nor hip fractures. Asymmetric osteitis symphysis pubis again noted There are mild degenerative changes in both hips again noted. Bone density normal. No significant osseous lesions. Fusion hardware noted in the lumbar spine. Sacroiliac joints appear unremarkable. IMPRESSION: Mild degenerative changes. Minimal if any significant change compared to images of December 2020. DATA REPOSITORY: RADIATION DOSE DELIVERED:
== END 2024-06-10 02:06 ==
LOC: DI 01:46
PROVIDERS: PCP Family Medicine; Visit Provider Family Medicine
DX: M25.552 Pain in left hip (principal)
CPT/HCPCS: 73502

== ENCOUNTER 2024-11-15 16:53 | Emergency (ER) | payer MEDICARE, SELFPAY ==
[2024-11-15 16:56] VITALS: BP 126/74; PULSE 79; RESP 20; TEMP 36.6; O2SAT 92
--- NOTE | 2024-11-15 17:45 | RT.EKG_ITS ---
APPROVED REPORT Exam: Resting ECG Reason for Exam: tick bite Patient Location: E HR:65 bpm ECG Measurements Heart Rate 65 AXIS IN 151 P 29 QRSd 78 QRS -1 QT 371 T 20 QTc 385 Conclusion Sinus rhythm...normal P axis, V-rate 60- 99
--- NOTE | 2024-11-15 17:50 | ED.GENADUL_ITS ---
Discharge Plan Disposition Patient Disposition: Home Condition: Stable Discharge Details Clinical Impression: Tick bite of left shoulder, Infected tick bite of shoulder Primary Care Provider: Avelino Caballero ED Provider: Wai Smith Home Meds and New Rx's Prescriptions: New doxycycline hyclate 100 mg capsule 100 mg PO BID Qty: 41 0RF cephalexin 500 mg tablet 500 mg PO QID Qty: 27 0RF Continued magnesium 200 mg tablet 400 mg PO DAILY potassium chloride 10 mEq tablet,ER particles/crystals 10 meq PO DAILY acetaminophen [Tylenol Extra Strength] 500 mg tablet 1,000 mg PO Q6H PRN furosemide 20 mg tablet 20 mg PO DAILY naproxen sodium [Aleve] 220 mg capsule 220 mg PO BID PRN fluticasone propionate 50 mcg/actuation spray,suspension 1 spray intranasal DAILY PRN Rx Instructions: administer into each nostril rosuvastatin 20 mg tablet 20 mg PO DAILY Patient Comments: pt states not taking lisinopril 5 mg tablet 2.5 mg PO DAILY finasteride 5 mg tablet 5 mg PO DAILY Qty: 90 3RF omeprazole 10 MG capsule,delayed release(DR/EC) 20 mg PO DAILY Discharge Instructions Instructions: Lyme disease Additional Instructions: You have an infected tick bite. It is not clear if this infection is due to Lyme disease or atypical skin infection. You have been started on 2 antibiotics. Please be sure to take the full course of these antibiotics as prescribed. A tick panel to test for various tickborne disease was drawn today and the results are pending. Please follow-up with your primary care physician. Return to the emergency department immediately for any worsening or new concerning symptoms. Referrals: Avelino Caballero [Primary Care Provider] - Discharge Data Discharge Date/Time-TO BE ENTERED AT DEPARTURE: 11/15/24 19:14 HPI General Mode of arrival: ambulatory . Date/Time Provider Initiated Documentation: 11/15/24 17:27 . Limitations to Documentation: no limitations . Information obtained by: patient and family . HPI Narrative: HISTORY OF PRESENT ILLNESS The patient presents for evaluation of a tick bite. He is accompanied by his . Approximately 2.5 days ago, he experienced a tick bite on his left shoulder. The tick was removed with tweezers, and the area was cleaned and treated with an antibiotic. This morning, he noticed significant redness extending from the bite site to his chest, which has darkened and spread to his armpit. He is uncertain about the duration of the tick's attachment but identifies it as a black-legged tick. He has a history of skin infections in the past but has never been diagnosed with MRSA. Related Data Home Medications ?Medication ?Instructions ?Recorded ?Confirmed omeprazole 10 mg capsule,delayed 20 mg PO DAILY 01/20/15 11/15/24 release magnesium 200 mg tablet 400 mg PO DAILY 12/10/20 11/15/24 potassium chloride 10 mEq 10 meq PO DAILY 12/10/20 11/15/24 tablet,extended release(part/cryst) fluticasone propionate 50 1 spray intranasal DAILY PRN 08/13/21 11/15/24 mcg/actuation nasal spray,suspension rosuvastatin 20 mg tablet 20 mg PO DAILY 08/13/21 11/15/24 furosemide 20 mg tablet 20 mg PO DAILY 09/10/21 11/15/24 naproxen sodium 220 mg capsule 220 mg PO BID PRN 04/08/22 11/15/24 (Aleve) acetaminophen 500 mg tablet 1,000 mg PO Q6H PRN 10/31/22 11/15/24 (Tylenol Extra Strength) lisinopril 5 mg tablet 2.5 mg PO DAILY 10/31/22 11/15/24 finasteride 5 mg tablet 5 mg PO DAILY #90 tabs 11/06/24 11/15/24 cephalexin 500 mg tablet 500 mg PO QID #27 tabs 11/15/24 doxycycline hyclate 100 mg capsule 100 mg PO BID #41 caps 11/15/24 Previous Rx's ?Medication ?Instructions ?Recorded finasteride 5 mg tablet 5 mg PO DAILY #90 tabs 11/06/24 cephalexin 500 mg tablet 500 mg PO QID #27 tabs 11/15/24 doxycycline hyclate 100 mg capsule 100 mg PO BID #41 caps 11/15/24 Allergies Allergy/AdvReac Type Severity Reaction Status Date / Time tamsulosin Allergy Other (See Verified 11/15/24 17:02 Comment) General Stated Complaint: RashLesion JENNIFER: 3 Review of Systems All systems reviewed & are unremarkable except as noted in HPI and below Musculoskeletal Musculoskeletal: Reports arthralgias (Chronic unchanged) Integumentary/Breasts Skin/Breast: Reports as per HPI Exam Narrative Exam Narrative: PHYSICAL EXAM General Appearance: Normal. Vital signs: Within normal limits. HEENT: Within normal limits. Respiratory: Lungs clear. Cardiovascular: 2/6 holosystolic murmur present. RRR. Skin: Bite on superior left shoulder. Redness streaking from shoulder to left chest and breast area, with associated swelling left chest. Neurological: Normal. Course Vital Signs Vital signs: Vital Signs Temperature 36.6 C 11/15/24 16:56 Pulse 79 11/15/24 16:56 Respiratory Rate 20 11/15/24 16:56 Blood Pressure 126/74 11/15/24 16:56 Pulse Oximetry 92 11/15/24 16:56 Temperature 36.6 C 11/15/24 16:56 Pulse 79 11/15/24 16:56 Respiratory Rate 20 11/15/24 16:56 Blood Pressure 126/74 11/15/24 16:56 Blood Pressure Position Sitting 11/15/24 16:56 Pulse Oximetry 92 11/15/24 16:56 Oxygen Delivery Method Room Air 11/15/24 16:56 Oxygen Flow Rate 0 11/15/24 16:56 Medical Decision Making ASSESSMENT AND PLAN Initial Assessment: Patient presents with a tick bite removed 2.5 days ago, followed by redness and swelling from the left shoulder to the left chest and breast area, indicating possible infection. Differential Diagnosis: - Lyme disease: Considered due to tick bite and symptoms. Plan to start antibiotics for Lyme disease. - Cellulitis: Considered due to redness and swelling. Plan to start antibiotics for typical staph or strep skin infections. ED Course: - Blood work to check for tick-borne diseases and ensure normal blood counts. - EKG to rule out cardiac involvement. EKG reviewed and interpreted by me: Please report, sinus rhythm 65 bpm, normal intervals. - I will initiate treatment with Keflex and doxycycline. Clinical Impression: - Tick bite - Possible Lyme disease - Possible cellulitis Disposition: - Discharge - Follow-Up: Follow up in 3.5 weeks for 6-month checkup. MDM Components Evaluation: - Number of Differential Diagnoses or Management Options: Lyme disease, c ellulitis - Amount and Complexity of Data Reviewed: Blood work, EKG - Risk of Complication and Morbidity or Mortality: Risk of untreated Lyme disease and skin infection complications. This document was written with the assistance of KELLIE Abrams. The patient consented to its use. 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 (Acute) Sprain of ulnar collateral ligament of metacarpophalangeal (MCP) joint of left thumb (Acute) Femoral acetabular impingement (Acute) left hip Foreign body of knee, left, superficial (Acute) Spondylosis of lumbar region without myelopathy or radiculopathy (Chronic) Lumbar radicular pain (Chronic) Rotator cuff tear, right (Acute) Medical History Acute deep vein thrombosis (DVT) of brachial vein of right upper extremity (11/11/15) Acute urinary retention Allergic rhinitis BPH (benign prostatic hyperplasia) CKD (chronic kidney disease) Clot retention of urine Complete tear of right rotator cuff (10/14/15) GERD HLD (hyperlipidemia) Hypertension NAFLD (nonalcoholic fatty liver disease) Right carpal tunnel syndrome (05/12/16) Seborrheic keratoses SIRS (systemic inflammatory response syndrome) Spinal stenosis Spondylolisthesis at L4-L5 level (10/24/16) Urinary retention Surgical History Endoscopic Carpal Tunnel release (06/07/16) Repair of inguinal hernia Rotator Cuff Repair (09/03/15) S/P TURP Family History Brother Diabetes Hypertension Brother Diabetes Hypertension Cancer skin cancer, unknown type Brother Hypertension Brother Hypertension Mother Nonalcoholic fatty liver disease Social History Smoking/Tobacco Use Status: Never Smoking risk assessment performed?: Yes Alcohol Intake: never Drug use: Never Substance use type: does not use Do you feel safe at home: Yes Do you feel safe in your relationship?: Yes
[2024-11-15] MEDS: Doxycycline Hyclate 100 MG CAP PO (18:43)
[2024-11-15] MEDS: Cephalexin 500 MG CAP PO (18:43)
[2024-11-15 18:47] LABS: Abs Immature Grans 0.02 10^3/uL (0.0-0.06); Absolute Basophil Count 0.06 10^3/uL (0.0-0.2); Absolute Eosinophil Count 0.35 10^3/uL (0.0-0.7); Absolute Lymphocyte Count 3.78 10^3/uL (1.2-3.4); Absolute Monocyte Count 0.62 10^3/uL (0.1-0.8); Absolute Neutrophil Count 4.48 10^3/uL (1.2-6.7); Basophils % 0.6 %; Eosinophils % 3.8 %; HCT 42.4 % (40.0-50.0); HGB 14.6 g/dL (13.5-17.5); Immature Grans % 0.2 %; Lymphocytes % 40.6 %; MCH 32.3 pg (27.0-33.0); MCHC 34.4 % (32.0-36.0); MCV 94 fL (80-95); MPV 12.3 fL (8.0-11.0); Monocytes % 6.7 %; Neutrophils % 48.1 %; Platelet Count 129 10^3/uL (130-400); RBC 4.52 10^6/uL (4.36-5.78); RDW-SD 41.6 fL; WBC 9.31 10^3/uL (4.4-10.8)
[2024-11-15 18:59] LABS: ALT 17 U/L (16-63); AST 22 U/L (15-37); Albumin 3.8 g/dL (3.4-5.0); Alkaline Phosphatase 101 U/L (46-116); Anion Gap 6.2 mmol/L (3-11); BUN 35 mg/dL (7-18); Bilirubin, Total 0.4 mg/dL (0.2-1.0); CO2 26.8 mmol/L (21.0-32.0); CREATININE 1.6 mg/dL (0.70-1.30); Calcium 9.1 mg/dL (8.5-10.1); Chloride 106 mmol/L (98-107); Estimated GFR 43.29 (mL/min/1.73m2); Glucose 105 mg/dL (74-106); Potassium 4.1 mmol/L (3.5-5.1); Sodium 139 mmol/L (136-145)
[2024-11-15 19:14] VITALS: BP 145/82; PULSE 88; RESP 15; TEMP 36.8; O2SAT 95
[2024-11-18 11:45] LABS: Lyme Ab w Rflx to Lyme Confirm Negative (Negative)
[2024-11-19 16:17] LABS: Anaplasma phagocytophilum Negative (Negative); B. miyamotoi PCR Negative (Negative); Babesia divergens/MO-1 Negative (Negative); Babesia duncani Negative (Negative); Babesia microti Negative (Negative); Ehrlichia chaffeensis Negative (Negative); Ehrlichia ewingii/canis Negative (Negative); Ehrlichia muris eauclairensis Negative (Negative)
== END 2024-11-15 19:14 | disposition home or self-care (01) ==
PROVIDERS: Emergency Provider Student in an Organized Health Care Education/Training Program; PCP Family Medicine
DX: S40.262A Insect bite (nonvenomous) of left shoulder, initial encounter (principal); W57.XXXA Bitten or stung by nonvenomous insect and other nonvenomous arthropods, initial encounter; R21 Rash and other nonspecific skin eruption
CPT/HCPCS: 99284 ×2; 80053; 87798; 93005; 85025; 86618; 93010

== ENCOUNTER 2025-01-22 02:03 | Outpatient (CLI) | payer MEDICARE, SELFPAY ==
--- NOTE | 2025-01-22 13:30 | DI.US_ITS ---
APPROVED REPORT EXAM: Comprehensive 2D, Doppler, and color-flow Echocardiogram Patient Location: [facility]Patient [facility] Teacher: Siobhan Dinh RDCS (AE) Indications: Essential Hypertension Other Information Study Quality: Adequate. Technically limited study due to body habitus. Conclusion Normal left ventricular wall thickness and chamber size. Ejection fraction is 55 to 60%. Wall motion is normal Normal right ventricular size and function Both atria are normal in size The aortic valve is trileaflet and mildly sclerotic without stenosis or regurgitation Mild mitral and tricuspid regurgitation. Normal estimated right ventricular systolic pressure 26 mmHg Ascending aorta measures 4.11 cm Wall motion Left Ventricle The left ventricle is normal size. The left ventricular systolic function is normal. The left ventricular ejection fraction is within the normal range. There is normal left ventricular wall thickness. There is normal LV segmental wall motion. There is no ventricular septal defect visualized. LVEF is 56%. Right Ventricle The right ventricle is normal size. The right ventricular systolic function is normal. Atria The left atrium size is normal. The right atrium size is normal. The interatrial septum is intact with no evidence for an atrial septal defect. Aortic Valve The Aortic valve is mildly sclerotic. Aortic valve is trileaflet. There is no aortic valvular stenosis. No aortic regurgitation is present. Mitral Valve The mitral valve is normal in structure. No evidence of mitral valve stenosis. Mild mitral regurgitation. Tricuspid Valve The tricuspid valve is normal in structure. There is no tricuspid valve stenosis. Mild tricuspid regurgitation. Pulmonic Valve The pulmonary valve is normal in structure. There is no pulmonic valvular stenosis. Trace pulmonic regurgitation. Great Vessels The aortic root is normal in size. The ascending aorta is moderately dilated. Aortic arch is normal in caliber. The IVC was not visualized. Technically limited subcostal. Pericardium There is no pericardial effusion. 2D Dimensions IVSD d PLAX 0.99 cm M: 0.6-1.2 Ao Root d 3.28 cm M: 3.1 - 3.7 LVPW d PLAX 0.99 cm M: 0.6 - 1.2 Ao Asc Diam d 4.11 cm M: 2.6 - 3.4 LVID d PLAX 4.45 cm M: 4.2 - 5.8 LVDs 3.18 cm M: 2.5 - 4.0 LV EF Teichholz 55.3 % FS 28.61 % LV EDV (Teich) 90.1 mL LV ESV (Teich) 40.3 mL M-Mode TAPSE 2.21 cm (M/F) >1.7 Auto EF LV EDV A4C 140.6 mL LV EDV A2C 100.5 mL LV EDV BP 120.1 mL LV ESV A4C 62.4 mL LV ESV A2C 43.8 mL LV ESV BP 52.1 mL LVEF(%) A4C 55.6 % LVEF(%) A2C 56.5 % LVEF(%) BP 56.7 % LV SV A4C 78.2 ml LV SV A2C 56.8 ml LV SV BP 68.1 ml LV CO A4C 5.9 L/min LV CO A2C 4.5 L/min LV CO BP 5.2 L/min HR A4C 75.00 BPM HR A2C 78.95 BPM LV EDV Index (BP) LA Volume LA Length A4C 5.7 cm LA Length A2C 5.2 cm LA Area A4C s 16.71 cm2 LA Area A2C s 16.25 cm2 LA Vol A4C A-L 41.28 mL LA Vol A2C A-L 42.79 mL LA Vol Biplane A-L 44.0 mL LA Vol/BSA A4C A-L LA Vol/BSA A2C A-L LA Vol/BSA BP A-L 21.5 mL/m2 LA Vol A4C MOD 39.8 mL LA Vol A2C MOD 39.5 mL LA Vol BP MOD 41.4 mL RA Volume RA Area A4C 14.3 cm2 RA ESV A4C (A-L) 31.9mL RA Vol/BSA A4C A-L RA Length A4C 5.4 cm RA ESV A4C (MOD) 29.6mL LV Diastology MV E' medial 0.092 (>0.07 m/s) MV E Vmax 0.51 (0.4-1.3 m/s) MV E/E' MED 5.59 (<14) MV A Vmax 0.75 (0.4-1.3 m/s) MV E' lateral 0.087 (>0.1 m/s) E/A Ratio 0.7 MV E/E' LAT 5.87 (<14) MV E' Average 0.090 m/s MV E/E'(average) 5.73 Aortic Valve AoV Vmax 1.22 m/s LVOT Vmax 1.05 m/s AoV Peak Grad 6.0 mmHg LVOT Peak Grad 4.4 mmHg AoV Area (Vmax) 2.08 cm2 LVOT VTI 0.223 m AoV VTI 0.217 m LVOT Mean Grad 2.1 mmHg AoV Mean Michael. 0.83 m/s LVOT SV 54.02 mL AoV Mean Grad 3.1 mmHg LVOT Diam s 1.75 cm AoV Area (VTI) 2.49 cm2 AV Regurg Peak Gr. 5.98 mmHg Velocity Ratio 0.86 Mitral Valve MV DT 206 (160-240 msec) MV Vmax TIPS 0.80 m/s MV Mean Grad 0.9 (<2mmHg) MV VTI 0.170 m Pulmonary Valve PV Vmax 1.07 (0.5-1.5 m/s) PV Peak Grad 4.6 mmHg PV Mean Michael 0.74 m/s PV Mean Grad 2.5 mmHg Tricuspid Valve TV S' 0.12 m/s TR Vmax 2.42 m/s TR Peak Grad 23.5 mmHg
== END 2025-01-22 02:23 ==
LOC: DI 02:03
PROVIDERS: PCP Family Medicine; Visit Provider Internal Medicine Cardiovascular Disease
DX: I10 Essential (primary) hypertension (principal)
CPT/HCPCS: 93306

== ENCOUNTER → 2025-04-02 10:19 | Outpatient (BNVA) | payer MEDICARE, SELFPAY | PROVIDERS: PCP Family Medicine; Visit Provider Nurse Practitioner Gerontology | DX: R33.9 Retention of urine, unspecified (principal); R39.9 Unspecified symptoms and signs involving the genitourinary system | CPT/HCPCS: 99213; 51798 ==

== ENCOUNTER → 2025-04-29 13:25 | Outpatient (BNVA) | payer MEDICARE, SELFPAY | PROVIDERS: PCP Family Medicine; Referring Provider Family Medicine; Visit Provider Nurse Practitioner Gerontology | DX: N39.0 Urinary tract infection, site not specified (principal); N43.3 Hydrocele, unspecified | CPT/HCPCS: 99214 ==

== ENCOUNTER 2025-04-29 14:18 | Outpatient (REF) | payer MEDICARE, SELFPAY | END 2025-04-29 14:19 | disposition home or self-care (01) | LOC: LBN 14:18 | PROVIDERS: PCP Family Medicine; Visit Provider Nurse Practitioner Gerontology | DX: R33.8 Other retention of urine (principal) | CPT/HCPCS: 87077; 87086; 87186 ==

== ENCOUNTER 2025-04-29 14:19 | Outpatient (CLI) | payer MEDICARE, SELFPAY ==
--- NOTE | 2025-04-29 14:00 | DI.US_ITS ---
Exam(s) US SCROTUM EXAM: US SCROTUM CLINICAL HISTORY: Rapid left scrotal swelling - firmness, testicle swelling, N50.89. TECHNIQUE: Scrotal ultrasound performed using grayscale, color-flow and spectral Doppler analysis. COMPARISON: No exams were available for comparison FINDINGS: Right testicle: 4.5 x 2.7 x 3.0 cm Echogenicity: Normal. Contour: Smooth. Mass: None seen. Microlithiasis: None. Hydrocele: There is a 2.9 x 0.8 x 2.1 cm right hydrocele. Variocele: None. Hernia: No peristalsing bowel loop identified. Epididymis: Normal. Left testicle: 4.9 x 3.7 x 3.3 cm Echogenicity: Normal. Contour: Smooth. Mass: None seen. Microlithiasis: None. Hydrocele: There is a 2.4 x 3.7 x 2.0 cm hydrocele with some internal septations. Variocele: None. Hernia: No peristalsing bowel loop identified. Epididymis: Normal. DOPPLER: Color: Symmetric and uniform, no hyperemia. IMPRESSION: 1. Normal appearing bilateral testicles. 2. Bilateral hydroceles, left greater than right. DATA REPOSITORY:
== END 2025-04-29 14:39 ==
LOC: DI 14:20
PROVIDERS: PCP Family Medicine; Visit Provider Nurse Practitioner Gerontology
DX: N50.89 Other specified disorders of the male genital organs (principal); N43.3 Hydrocele, unspecified
CPT/HCPCS: 99214; 76870

== ENCOUNTER → 2025-05-05 13:54 | Outpatient (BNVA) | payer MEDICARE, SELFPAY | PROVIDERS: PCP Family Medicine; Referring Provider Family Medicine; Visit Provider Urology | DX: N39.0 Urinary tract infection, site not specified (principal); N43.3 Hydrocele, unspecified | CPT/HCPCS: 99214 ==

== ENCOUNTER 2025-05-08 08:26 | Observation (INO) | payer MEDICARE, SELFPAY ==
[2025-05-08] VITALS (20 sets, daily range): BP systolic 114–139; BP diastolic 69–86; PULSE 74–108; RESP 16–23; TEMP 36.3–37.4; O2SAT 88–97; BMI 25.9
--- NOTE | 2025-05-08 06:52 | W.PM.HP.N ---
Date of service: 05/08/25 Time of Service: 06:53 Assessment and Plan Assessment and plan (1) Hydrocele: Status: Acute Assessment and plan: As he is quite symptomatic, we will move ahead with hydrocelectomy History of Present Illness History of Present Illness Chief Complaint: Hydrocele Narrative: This is an 80-year-old gentleman who had undergone a transurethral resection of the prostate about 3 years ago. As he recovered from his surgery, we discontinued his finasteride. He then had hematuria with clot retention and we have kept him on his finasteride since then. Prior to the TURP, he had urinary tract infections. He had no infection until recently. He developed an upper respiratory infection and took some qomp-dbr-fveokzl type cold medications. He then had difficulty emptying his bladder and started having a foul smell to the urine along with cloudiness. He was again found to have an E. coli urinary tract infection it was treated with a week of Levaquin. When he was initially seen with his most recent urinary tract infection, he had just begun to notice some left scrotal swelling. He had an ultrasound at that time that showed a multiloculated hydrocele on the left. Since taking the antibiotic, his urinary symptoms have improved, but the left scrotal swelling has increased as has the left scrotal discomfort. He is starting to see some darkening of the skin on the left side. He does not have any drainage from the skin. He does not recall any specific trauma to the area. He is not on any anticoagulants. After discussing treatment options, he is agreeable to a hydrocelectomy. Review of Systems Narrative: No fevers or chills No vision change or dysphasia No diabetes or thyroid dysfunction No shortness of breath, cough or hemoptysis No chest pain or palpitations No nausea, vomiting, hepatitis, ulcers, jaundice No seizures, strokes or peripheral neuropathy Chronic venous stasis lower extremities. 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 (Acute) Sprain of ulnar collateral ligament of metacarpophalangeal (MCP) joint of left thumb (Acute) Femoral acetabular impingement (Acute) left hip Foreign body of knee, left, superficial (Acute) Spondylosis of lumbar region without myelopathy or radiculopathy (Chronic) Lumbar radicular pain (Chronic) Rotator cuff tear, right (Acute) Medical History Acute deep vein thrombosis (DVT) of brachial vein of right upper extremity (11/11/15) Acute urinary retention Allergic rhinitis BPH (benign prostatic hyperplasia) CKD (chronic kidney disease) Clot retention of urine Complete tear of right rotator cuff (10/14/15) GERD HLD (hyperlipidemia) Hypertension NAFLD (nonalcoholic fatty liver disease) Right carpal tunnel syndrome (05/12/16) Seborrheic keratoses SIRS (systemic inflammatory response syndrome) Spinal stenosis Spondylolisthesis at L4-L5 level (10/24/16) Urinary retention Surgical History Endoscopic Carpal Tunnel release (06/07/16) Repair of inguinal hernia Rotator Cuff Repair (09/03/15) S/P TURP Family History Brother Diabetes Hypertension Brother Diabetes Hypertension Cancer skin cancer, unknown type Brother Hypertension Brother Hypertension Mother Nonalcoholic fatty liver disease Social History Smoking/Tobacco Use Status: Never Smoking risk assessment performed?: Yes Alcohol Intake: never Drug use: Never Substance use type: does not use Housing: house Meds Allergies and Home Medications Allergies Allergy/AdvReac Type Severity Reaction Status Date / Time tamsulosin Allergy Other (See Verified 05/08/25 06:26 Comment) Home Medications Medication Instructions Recorded Confirmed Type omeprazole 10 mg capsule,delayed 20 mg PO DAILY 01/20/15 05/08/25 History release magnesium 200 mg tablet 400 mg PO DAILY 12/10/20 05/07/25 History potassium chloride 10 mEq 10 meq PO DAILY 12/10/20 05/07/25 History tablet,extended release(part/cryst) fluticasone propionate 50 1 spray intranasal DAILY PRN 08/13/21 05/07/25 History mcg/actuation nasal spray,suspension rosuvastatin 20 mg tablet 20 mg PO DAILY 08/13/21 05/08/25 History furosemide 20 mg tablet 20 mg PO DAILY 09/10/21 05/08/25 History naproxen sodium 220 mg capsule 220 mg PO BID PRN 04/08/22 05/07/25 History (Aleve) lisinopril 5 mg tablet 2.5 mg PO DAILY 10/31/22 05/08/25 History finasteride 5 mg tablet 5 mg PO DAILY #90 tabs 11/06/24 05/08/25 Rx oxycodone 5 mg tablet 5 mg PO Q6H PRN pain #20 tabs 05/05/25 05/07/25 Rx Exam Const General: cooperative and comfortable Neck Neck: supple Resp Effort & Inspection: normal respiratory effort Auscultation: clear to auscultation bilaterally Cardio Rate: regular rate Rhythm: regular rhythm GI Palpation: soft and no masses Scrotum: hydrocele on the left and no ulcerations Neuro General: patient alert, patient awake and patient oriented x3 Results Last Vital Signs Temp 36.8 C 05/08/25 06:27 Pulse 81 05/08/25 06:27 Resp 20 05/08/25 06:27 BP 114/86 05/08/25 06:27 Pulse Ox 96 05/08/25 06:27 Time Spent Time spent with Patient: <40 minutes Time was spent: other
[2025-05-08] MEDS: Lactated Ringers 1,000 ML 80 ML IV ×2 (07:03→15:30)
--- NOTE | 2025-05-08 07:27 | W.ANESPRE ---
General Info Date of Service Date Performed: 05/08/25 Height: 5 ft 10 in Weight: 81.8 kg Body Mass Index (BMI): 25.9 Surgical Procedure: Operation Date: 05/08/25 07:40 Proposed Procedure Side Surgeon p Hydrocelectomy Left Alan Fuentes MD Meds Allergies and Home Medications Allergies Allergy/AdvReac Type Severity Reaction Status Date / Time tamsulosin Allergy Other (See Verified 05/08/25 06:26 Comment) Home Medication Medication Instructions Recorded omeprazole 10 mg capsule,delayed 20 mg PO DAILY 01/20/15 release magnesium 200 mg tablet 400 mg PO DAILY 12/10/20 potassium chloride 10 mEq 10 meq PO DAILY 12/10/20 tablet,extended release(part/cryst) fluticasone propionate 50 1 spray intranasal DAILY PRN 08/13/21 mcg/actuation nasal spray,suspension rosuvastatin 20 mg tablet 20 mg PO DAILY 08/13/21 furosemide 20 mg tablet 20 mg PO DAILY 09/10/21 naproxen sodium 220 mg capsule 220 mg PO BID PRN 04/08/22 (Aleve) lisinopril 5 mg tablet 2.5 mg PO DAILY 10/31/22 finasteride 5 mg tablet 5 mg PO DAILY #90 tabs 11/06/24 oxycodone 5 mg tablet 5 mg PO Q6H PRN pain #20 tabs 05/05/25 Current Visit Medications: Current Medications Generic Name Dose Route Start Last Admin Trade Name Freq PRN Reason Stop Dose Admin Ringer's Solution 1,000 mls @ 80 mls/hr 05/08/25 06:00 05/08/25 07:03 IV 05/08/25 23:59 80 mls/hr INFUSION LIZETH Administration Cefazolin Sodium/Dextrose 2 gm in 50 mls @ 100 mls/hr 05/08/25 06:00 Ancef Duplex IVPB 05/08/25 23:59 PREOP LIZETH IV Miscellaneous Supplies 1 each 05/08/25 06:00 Iv Access IV 05/08/25 23:59 DIRECTED LIZETH Sodium Chloride 0 ml 05/08/25 06:00 Normal Saline Flush 10 Ml Syr IV 05/08/25 23:59 PRN PRN Sodium Chloride 0 ml 05/08/25 06:00 Normal Saline 10 Ml Vial IJ 05/08/25 23:59 DIRECTED PRN Sterile Water 0 ml 05/08/25 06:00 Water,Injection,Sterile 10 Ml Vial IJ 05/08/25 23:59 DIRECTED PRN PFSH Active Problems Active Problems: Problem Status Onset Code Hydrocele Acute N43.3 On terminal worker drug therapy Acute Z79.899 Cellulitis of right leg Acute L03.115 Pain of right lower leg Acute M79.661 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 Acute M25.342 Sprain of ulnar collateral ligament of metacarpophalangeal (MCP) joint of left thumb Acute S63.642A Femoral acetabular impingement Acute M25.859 Foreign body of knee, left, superficial Acute S80.252A 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 M47.816 Lumbar radicular pain Chronic M54.16 Rotator cuff tear, right Acute M75.101 Medical History Medical History Acute deep vein thrombosis (DVT) of brachial vein of right upper extremity (11/11/15) Acute urinary retention Allergic rhinitis BPH (benign prostatic hyperplasia) CKD (chronic kidney disease) Clot retention of urine Complete tear of right rotator cuff (10/14/15) GERD HLD (hyperlipidemia) Hypertension NAFLD (nonalcoholic fatty liver disease) Right carpal tunnel syndrome (05/12/16) Seborrheic keratoses SIRS (systemic inflammatory response syndrome) Spinal stenosis Spondylolisthesis at L4-L5 level (10/24/16) Urinary retention Surgical History Surgical History Endoscopic Carpal Tunnel release (06/07/16) Repair of inguinal hernia Rotator Cuff Repair (09/03/15) S/P TURP Tobacco Smoking/Tobacco Use Status: Never Passive smoking exposure: No Alcohol Alcohol Intake: never Substance Use Substance use: Never Substance use type: does not use Vital Signs and Lab Results Vital Signs Most Recent Vital Signs in EMR: Most Recent Vital Signs Temp Pulse Resp BP Pulse Ox 36.8 C 81 20 114/86 96 05/08/25 06:27 05/08/25 06:27 05/08/25 06:27 05/08/25 06:27 05/08/25 06:27 Imaging and Studies Imaging and Studies Study information below may be from another EMR and interpreted by another provider. Please see original notes in EMR for more complete details. Echocardiogram Summary: Conclusion Normal left ventricular wall thickness and chamber size. Estimated ejection fraction is 60%. There are no segmental wall motion abnormalities Normal right ventricular size and systolic function Both atria are normal in size There are no structural valvular abnormalities Mild to moderate mitral and tricuspid regurgitation. 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 09/18/20 Anesthesia Assessment and Plan Anesthesia History Personal History: No History of Anesthesia Complications Family History: No Family History of Anesthesia Complications Exercise Tolerance Exercise Tolerance: Metabolic Equivalents>4 Pertinent Negatives Pertinent Negatives: No Symptoms of GERD (Rx) Cardiac & Pulmonary Exam Cardiac Exam: Normal S1/S2 Heart Sounds Pulmonary Exam: Clear Bilateral Breath Sounds Implantable Cardiac Device Does patient have a Pacemaker or an ICD?: No Airway Exam Known Difficult Airway: No Mallampati Class: 3 Mouth Opening: Narrow (< 3cm) Thyromental Distance: Greater than 3 cm Neck Range of Motion: Full ROM Neck Circumference: Normal Teeth Condition: Generalized Poor Dentition and Other ([place] palsy many years ago, 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
[2025-05-08] MEDS: ceFAZolin 2 GM/50 ML BAG IVPB (07:40)
[2025-05-08] MEDS: Bupivacaine 0.25% Pres-Free 30 ML VIAL (08:15)
--- NOTE | 2025-05-08 08:32 | W.PM.OP ---
Operative Note Operative Note PRE-OP DIAGNOSIS: Left hydrocele POST-OP DIAGNOSIS: same PROCEDURE: Left hydrocelectomy SURGEON: Alan Fuentes ANESTHESIA TYPE: Local By Surgeon and General LMA/ETT Refer to Anesthesia Record ESTIMATED BLOOD LOSS: 5 PATHOLOGY: none sent COMPLICATIONS: None Patient was transported to: PACU Patient's condition: stable Implants: none Indications: This is an 80-year-old gentleman with a history of recurrent urinary tract infections. He presented to the office recently with an E. coli urinary tract infection. Along with his urinary tract symptoms, he complained of left scrotal swelling and discomfort. He was treated with antibiotics as UTI improved, but the left scrotal swelling does not. On ultrasound, we found a loculated left hydrocele. He presents for hydrocelectomy Findings: Loculated left hydrocele Procedure Description: The patient was brought to the operating room on 05/08/2025. He was given preoperative IV antibiotics. After successful induction of general anesthesia, he was placed in the supine position. His genitalia was prepped and draped. A left scrotal field block was performed with quarter percent Marcaine and a transverse left sided scrotal incision was made. The incision was extended down through the dartos muscle. The left testis, still within the space of the tunica vaginalis, was then delivered through the incision. There was quite a bit of edema surrounding the testis and the lower portion of the spermatic cord. We opened the tunica vaginalis and released a moderate amount of yellow-tinged fluid. Parts of the tunica vaginalis were densely adhered to the testis, so we were not able to invert the entire tunica vaginalis behind the testis. Instead, we excised the the redundant hydrocele sac and oversewed the edges with locking 3-0 chromic suture. Any additional bleeding points were cauterized with the Bovie. A cord block was performed using quarter percent Marcaine. The testis was delivered back within the scrotum. The dartos muscle was closed with a segment of running 3-0 chromic suture. The skin was closed with with 4-0 subcuticular suture. Skin was applied to the incision. A fluff dressing and scrotal support was applied. The patient tolerated this procedure well with no complications. He was taken to the recovery room in stable condition. Date of Procedure: 05/08/25
--- NOTE | 2025-05-08 09:07 | W.ANESPOSTOP ---
Postoperative Evaluation Date, Time and Location Date Performed: 05/08/25 Time Performed: 09:07 Patient Location: PACU Vital Signs Most Recent Imported Vital Signs: Most Recent Vital Signs Temp Pulse Resp BP Pulse Ox 36.7 C 81 21 127/77 96 05/08/25 09:01 05/08/25 09:01 05/08/25 09:01 05/08/25 09:01 05/08/25 09:01 Pain Score Most Recent Pain Score: Most Recent Pain Score Pain Level 0 05/08/25 08:59 Assessment Mental Status: Awake (Alert & Oriented to Patient Baseline) Airway and Respiratory Function: Patent airway with normal (patient baseline) respiratory exam Cardiovascular Function: Hemodynamically Stable Hydration Status: Adequately Hydrated Nausea & Vomiting: No Nausea or Vomiting Pain: Pt. Denies Any Pain Peripheral Nerve Block: Patient did not receive a nerve block
[2025-05-08] MEDS: Docusate Sodium 100 MG CAP PO ×2 (09:43→19:20)
[2025-05-08] MEDS: ceFAZolin 1 GM/50 ML BAG IVPB ×2 (16:37→23:31)
[2025-05-08] MEDS: Lisinopril 2.5 MG TAB PO (16:38)
[2025-05-08] MEDS: traMADol 50 MG TAB PO (18:55)
[2025-05-08] MEDS: Acetaminophen 325 MG TAB 650 MG PO (19:20)
--- NOTE | 2025-05-09 07:32 | PGE_ITS ---
Date of Service Date of service: 05/09/25 Time of Service: 07:32 Assessment and Plan Assessment and plan (1) Hydrocele: Status: Acute Assessment and plan: He has done well from his surgical procedure. We will plan to discharge him later today and he will follow-up with us in 2 or 3 weeks for a wound check. Subjective Subjective Interval history since last seen: Mr. Leon did well overnight. His pain was fairly well-controlled. He did notice some GI upset this morning. He was able to void with no difficulty. He had no fever or chills Exam Narrative Exam Narrative: He appears comfortable His vital signs are documented elsewhere His scrotal incision shows no significant erythema or ecchymosis He is awake and alert Objective Last Vital Signs Temp 37.4 C 05/08/25 19:29 Pulse 97 H 05/08/25 19:29 Resp 18 05/08/25 19:29 BP 118/86 05/08/25 19:29 Pulse Ox 95 05/08/25 19:29 Time Spent with Patient Time Spent with Patient: <25 minutes Time was spent: preparing to see the patient(eg.review tests), obtaining and/or reviewing separately otained hiistory, referring, communicating with other health acute care occupational therapist, counseling the patient and other
[2025-05-09] MEDS: ceFAZolin 1 GM/50 ML BAG IVPB (07:34)
[2025-05-09] MEDS: Omeprazole 20 MG CAPCR PO (07:34)
[2025-05-09] MEDS: Docusate Sodium 100 MG CAP PO (07:34)
--- NOTE | 2025-05-09 07:34 | W.PM.DS.N ---
Date of service: 05/09/25 Time of Service: 07:35 DS: Diagnosis Discharge Diagnosis (1) Hydrocele: Status: Acute Discharge Plan Disposition Patient Disposition: Home Condition: Stable Discharge Details Reason For Visit: Left Hydrocele Admit Date/Time: 05/08/25 08:26 Admit Provider: Alan Fuentes Attending Provider: Alan Fuentes Primary Care Provider: Avelino Caballero [facility] Hospital Course: The patient was admitted and taken to the operating room on 05/08/2025. He underwent a left hydrocelectomy. The procedure itself was uneventful. He was admitted to the hospital overnight for observation. His pain was well-controlled. He had no fevers or chills. He is ready for discharge on postoperative day #1 Home Meds and New Rx's Prescriptions: No Action magnesium 200 mg tablet 400 mg PO DAILY potassium chloride 10 mEq tablet,ER particles/crystals 10 meq PO DAILY furosemide 20 mg tablet 20 mg PO DAILY naproxen sodium [Aleve] 220 mg capsule 220 mg PO BID PRN oxycodone 5 mg tablet 5 mg PO Q6H MDD 4 PRN (Reason: pain) Qty: 20 0RF fluticasone propionate 50 mcg/actuation spray,suspension 1 spray intranasal DAILY PRN Rx Instructions: administer into each nostril rosuvastatin 20 mg tablet 20 mg PO DAILY Patient Comments: pt states not taking lisinopril 5 mg tablet 2.5 mg PO DAILY finasteride 5 mg tablet 5 mg PO DAILY Qty: 90 3RF omeprazole 10 MG capsule,delayed release(DR/EC) 20 mg PO DAILY Discharge Instructions Additional Instructions: Alternate oxycodone and Tylenol 500 mg for pain control Wear supportive undergarments and use ice packs to the scrotum (a bag of frozen peas works well). Use the ice packs for 30 minutes on and 30 minutes off just while you are awake Follow-up in our office in 2 to 3 weeks for a wound check. Stand Alone Forms: Portal Information Activity:: Activity as Tolerated Equipment/Supplies:: No Equipment Needed Diet:: As Tolerated Discharge Orders Discharge Orders: Discharge Order (Routine); Ordered 05/09/25 Ordered By: Alan Fuentes DS: Summary Time Spent with Patient providing and/or coordinating discharge services: Less than 30 minutes Status at Discharge Functional status at discharge: independent ambulation Overall status at discharge: patient is progressing back to baseline Mental Status: mental status grossly normal Speech and Movement: speech and movement normal Mood: congruent mood Affect: normal affect Exam Narrative Exam Narrative: On the morning of discharge, he appears comfortable His vital signs are documented elsewhere in this chart His chest wall motion is normal. He is not short of breath at rest His abdomen is soft with no guarding or rebound tenderness His scrotal incision shows no surrounding erythema or ecchymosis. There is no scrotal fluctuance He is awake and alert Psych Mental Status: mental status grossly normal Speech and Movement: speech and movement normal Mood: congruent mood Affect: normal affect DS: Data Vitals/I&O Vitals and I&O: Vital Signs Temperature 37.4 C 05/08/25 19:29 Temperature Source Temporal Artery Scan 05/08/25 19:29 Pulse 97 H 05/08/25 19:29 Pulse Rhythm Regular 05/08/25 06:27 Pulse 81 05/08/25 09:01 Respiratory Rate 18 05/08/25 19:29 Respiratory Depth Normal 05/08/25 06:27 Blood Pressure 118/86 05/08/25 19:29 Blood Pressure Mean 96 05/08/25 19:29 Pulse Oximetry 95 05/08/25 19:29 Respiratory End-tidal CO2 21 05/08/25 09:00 Oxygen Delivery Method Room Air 05/08/25 19:29 Oxygen Flow Rate 0 05/08/25 19:29 Pain Level 0 05/08/25 19:29 Intake & Output 05/08/25 05/08/25 05/09/25 11:59 23:59 11:59 Intake Total 550 / 1100 550 / 1100 989.333 / 989.333 Output Total 325 / 325 Balance 550 / 775 225 / 775 989.333 / 989.333 Weight 81.8 kg Intake: IV 550 / 1100 550 / 1100 739.333 / 739.333 Oral 250 / 250 Output: Urine 325 / 325 Other: Urine Color Yellow Yellow Urine Appearance Clear Urine Odor None Normal Comment Pt voids an immeasurable amount ind. into the toilet. 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 (Acute) Sprain of ulnar collateral ligament of metacarpophalangeal (MCP) joint of left thumb (Acute) Femoral acetabular impingement (Acute) left hip Foreign body of knee, left, superficial (Acute) Spondylosis of lumbar region without myelopathy or radiculopathy (Chronic) Lumbar radicular pain (Chronic) Rotator cuff tear, right (Acute) Medical History Clot retention of urine Acute urinary retention SIRS (systemic inflammatory response syndrome) Urinary retention Seborrheic keratoses CKD (chronic kidney disease) NAFLD (nonalcoholic fatty liver disease) HLD (hyperlipidemia) Acute deep vein thrombosis (DVT) of brachial vein of right upper extremity (11/11/15) Complete tear of right rotator cuff (10/14/15) Right carpal tunnel syndrome (05/12/16) Spondylolisthesis at L4-L5 level (10/24/16) Hypertension Allergic rhinitis BPH (benign prostatic hyperplasia) Spinal stenosis GERD Surgical History (Updated 05/09/25 @ 07:35 by Alan Fuentes MD) History of hydrocelectomy S/P TURP Rotator Cuff Repair (09/03/15) Repair of inguinal hernia Endoscopic Carpal Tunnel release (06/07/16) Family History Brother Diabetes Hypertension Brother Diabetes Hypertension Cancer skin cancer, unknown type Brother Hypertension Brother Hypertension Mother Nonalcoholic fatty liver disease Social History Smoking/Tobacco Use Status: Never Smoking risk assessment performed?: Yes Alcohol Intake: never Drug use: Never Substance use type: does not use Housing: house Time Spent with Patient Time Spent with Patient: <45 minutes Time was spent: preparing to see the patient(eg.review tests), referring, communicating with other health career development manager, counseling the patient and care coordination
[2025-05-09 08:13] VITALS: BP 120/79; PULSE 93; RESP 16; TEMP 37; O2SAT 95
[2025-05-09] MEDS: Potassium Chloride 10 MEQ TABCR PO (09:11)
[2025-05-09] MEDS: Rosuvastatin 20 MG TAB PO (09:11)
[2025-05-09] MEDS: Furosemide 20 MG TAB PO (09:12)
[2025-05-09] MEDS: Lisinopril 5 MG TAB 2.5 MG PO (09:12)
[2025-05-09] MEDS: Magnesium Oxide 400 MG TAB PO (09:12)
[2025-05-09] MEDS: Finasteride 5 MG TAB PO (09:13)
== END 2025-05-09 13:36 | disposition home or self-care (01) ==
LOC: MS 09:23
PROVIDERS: Admitting Provider Urology; PCP Family Medicine; Visit Provider Urology
PROC: (CPT 55500; principal; 2025-05-08 07:30)
DX: N43.2 Other hydrocele (principal); R33.9 Retention of urine, unspecified; I12.9 Hypertensive chronic kidney disease with stage 1 through stage 4 chronic kidney disease, or unspecified chronic kidney disease; N18.9 Chronic kidney disease, unspecified; K76.0 Fatty (change of) liver, not elsewhere classified; E78.5 Hyperlipidemia, unspecified; M47.816 Spondylosis without myelopathy or radiculopathy, lumbar region; K21.9 Gastro-esophageal reflux disease without esophagitis; Z79.899 Other long term (current) drug therapy; Z87.440 Personal history of urinary (tract) infections; Z86.718 Personal history of other venous thrombosis and embolism
CPT/HCPCS: 55500; 99223; G0378; J0131; J0665; J0690; J1100; J2003; J2405; J2704; J3010

== ENCOUNTER → 2025-05-20 08:03 | Outpatient (BNVA) | payer MEDICARE, SELFPAY | PROVIDERS: PCP Family Medicine; Referring Provider Family Medicine; Visit Provider Urology | DX: Z48.816 Encounter for surgical aftercare following surgery on the genitourinary system (principal); N43.3 Hydrocele, unspecified | CPT/HCPCS: 99024 ==

== ENCOUNTER 2025-05-20 08:33 | Outpatient (CLI) | payer MEDICARE, SELFPAY ==
[2025-05-20 09:23] LABS: Abs Immature Grans 0.08 10^3/uL (0.0-0.06); HCT 43.0 % (40.0-50.0); HGB 14.2 g/dL (13.5-17.5); Immature Grans % 0.7 %; MCH 30.8 pg (27.0-33.0); MCHC 33.0 % (32.0-36.0); MCV 93 fL (80-95); MPV 10.5 fL (8.0-11.0); Platelet Count 329 10^3/uL (130-400); RBC 4.61 10^6/uL (4.36-5.78); RDW 11.7 % (11.8-14.1); RDW-SD 39.8 fL; WBC 10.87 10^3/uL (4.4-10.8)
[2025-05-20 09:29] LABS: Glucose Negative (Negative)
[2025-05-20 15:38] LABS: ALT 95 U/L (10-49); AST 38 U/L (<34); Albumin 4.5 g/dL (3.4-5.0); Alkaline Phosphatase 237 U/L (46-116); Anion Gap 8.9 mmol/L (3-11); BUN 30 mg/dL (9-23); Bilirubin, Total 0.60 mg/dL (0.2-1.2); CO2 28.1 mmol/L (20.0-31.0); Calcium 9.7 mg/dL (8.3-10.6); Chloride 104 mmol/L (98-107); Cholesterol 128 mg/dL (<200); Glucose 84 mg/dL (74-106); HDL Cholesterol 30 mg/dL (>40); Potassium 4.4 mmol/L (3.5-5.1); Sodium 141 mmol/L (136-145); Total Protein 7.9 g/dL (5.7-8.2)
[2025-05-21 14:08] LABS: PSA, Screening 0.5 ng/mL (<=6.5)
== END 2025-05-20 08:34 | disposition home or self-care (01) ==
LOC: LBO 08:33
PROVIDERS: PCP Family Medicine; Visit Provider Family Medicine
DX: Z12.5 Encounter for screening for malignant neoplasm of prostate (principal); I10 Essential (primary) hypertension
CPT/HCPCS: 36415; 80053; 80061; 84153; 81003; 85025

== ENCOUNTER 2025-05-23 05:18 | Emergency (ER) | payer MEDICARE, SELFPAY ==
[2025-05-23 05:22] VITALS: BP 146/70; PULSE 84; RESP 18; TEMP 36.7; O2SAT 96
--- NOTE | 2025-05-23 05:28 | W.ED.GENAD ---
Discharge Plan Disposition Patient Disposition: Home Condition: Good Discharge Details Clinical Impression: Urticaria Primary Care Provider: Avelino Caballero ED Provider: Tatum Carranza Home Meds and New Rx's Prescriptions: New prednisone 20 mg tablet 20 mg PO DAILY PRNQty: 4 0RF Continued magnesium 200 mg tablet 400 mg PO DAILY potassium chloride 10 mEq tablet,ER particles/crystals 10 meq PO DAILY furosemide 20 mg tablet 20 mg PO DAILY naproxen sodium [Aleve] 220 mg capsule 220 mg PO BID PRN fluticasone propionate 50 mcg/actuation spray,suspension 1 spray intranasal DAILY PRN Rx Instructions: administer into each nostril lisinopril 5 mg tablet 2.5 mg PO DAILY finasteride 5 mg tablet 5 mg PO DAILY Qty: 90 3RF ondansetron HCl 4 mg tablet 4 mg PO Q8H PRN (Reason: nausea and vomiting) Qty: 12 0RF omeprazole 10 MG capsule,delayed release(DR/EC) 20 mg PO DAILY Discharge Instructions Instructions: Hives Additional Instructions: You can take Benadryl over the counter for your symptoms; follow the directions on the bottle. Do not take this at the same time as your potassium, and make sure you take your potassium with plenty of water. You were given a steroid medication (prednisone) here. If your symptoms persist, you can continue taking this once a day for the next 4 days. Call your primary care doctor in the morning to schedule an appointment for within 72 hours to followup on your visit here. Return to the emergency department for new or worsening symptoms including difficultly breathing, swelling/itching in your mouth or throat, nausea, vomiting, abdominal pain, chest pain, feeling like you are going to pass out, or if you have any other concerns. Stand Alone Forms: Portal Information Discharge Data Discharge Date/Time-TO BE ENTERED AT DEPARTURE: 05/23/25 06:09 HPI General Mode of arrival: ambulatory. Date/Time Provider Initiated Documentation: 05/23/25 05:22. Limitations to Documentation: no limitations. Information obtained by: patient and family. HPI Narrative: 80yo M with hx CKD, HLD, GERD, hydrocele surgery ~ 2 weeks ago, presenting with rash. This morning woke with itchy red rash on his back, abdomen, and legs. He has no other symptoms; no abdominal pain, nausea, vomiting, shortness of breath, chest pain, tongue swelling, or intraoral symptoms. Had a similar rash several years ago also about two weeks after surgery; does not recall what it was treated with and a provoking cause was not identified. At that time he also had no symptoms aside from rash. No new medications, detergents, animals, or other exposures. Allergic to tamsulosin; gets hives. No other known allergies. Nothing on history to suggest prior anaphalxis. He is otherwise in his usual state of health with no fevers, chills, LE edema, recent illness, or other concerns. Related Data Home Medications Medication Instructions Recorded Confirmed omeprazole 10 mg capsule,delayed 20 mg PO DAILY 01/20/15 05/23/25 release magnesium 200 mg tablet 400 mg PO DAILY 12/10/20 05/23/25 potassium chloride 10 mEq 10 meq PO DAILY 12/10/20 05/23/25 tablet,extended release(part/cryst) fluticasone propionate 50 1 spray intranasal DAILY PRN 08/13/21 05/23/25 mcg/actuation nasal spray,suspension furosemide 20 mg tablet 20 mg PO DAILY 09/10/21 05/23/25 naproxen sodium 220 mg capsule 220 mg PO BID PRN 04/08/22 05/23/25 (Aleve) lisinopril 5 mg tablet 2.5 mg PO DAILY 10/31/22 05/23/25 finasteride 5 mg tablet 5 mg PO DAILY #90 tabs 11/06/24 05/23/25 ondansetron HCl 4 mg tablet 4 mg PO Q8H PRN nausea and 05/12/25 05/23/25 vomiting #12 tabs prednisone 20 mg tablet 20 mg PO DAILY PRN #4 tabs 05/23/25 Previous Rx's Medication Instructions Recorded finasteride 5 mg tablet 5 mg PO DAILY #90 tabs 11/06/24 ondansetron HCl 4 mg tablet 4 mg PO Q8H PRN nausea and 05/12/25 vomiting #12 tabs prednisone 20 mg tablet 20 mg PO DAILY PRN #4 tabs 05/23/25 Allergies Allergy/AdvReac Type Severity Reaction Status Date / Time tamsulosin Allergy Other (See Verified 05/08/25 06:26 Comment) General Stated Complaint: Allergic JENNIFER: 3 Review of Systems Narrative: see HPI Exam Narrative Exam Narrative: General: Alert, well appearing, well nourished, in no acute distress. Head: Normocephalic, atraumatic Neck: Trachea midline, Neck supple. ENT: MMM. No oropharygeal lesions or exudate. No intraoral swelling. Cardiac: RRR, no murmurs appreciated Resp: No respiratory distress. CTAB. Abd: Soft, non-distended, nontender : No suprapubic tenderness. No rash in groin. Extremities: No deformities. No peripheral edema. Neurologic: GCS 15. Moves all extremities freely against gravity Skin: Diffuse urticaria on back/abdomen/BLE, blanchable. No vesicles. Nikolosky negative. Course Vital Signs Vital signs: Vital Signs Temperature 36.7 C 05/23/25 05:22 Pulse 84 05/23/25 05:22 Respiratory Rate 18 05/23/25 05:22 Blood Pressure 146/70 H 05/23/25 05:22 Pulse Oximetry 96 05/23/25 05:22 Temperature 36.7 C 05/23/25 05:22 Temperature Source Tympanic 05/23/25 05:22 Pulse 84 05/23/25 05:22 Respiratory Rate 18 05/23/25 05:22 Blood Pressure 146/70 H 05/23/25 05:22 Blood Pressure Position Sitting 05/23/25 05:22 Pulse Oximetry 96 05/23/25 05:22 Oxygen Delivery Method Room Air 05/23/25 05:22 Oxygen Flow Rate 0 05/23/25 05:22 Pain Level 0 05/23/25 05:22 Medical Decision Making 80yo M with hx CKD, HLD, GERD, hydrocele surgery ~ 2 weeks ago, presenting with rash. This morning woke with itchy red rash on his back, abdomen, and legs; no other symptoms. No new exposures. Very similar episode several years ago also about two weeks after surgery; hives with no other symptoms at that time either. No history to suggest prior anaphalytic reaction. Vital signs reassuring on arrival. Diffuse urticaria on exam; nothing on history or physical exam this morning to suggest anaphylaxis. Systemically well with no fever, musosal involvement, pain. Tried benadyrl cream at home prior to arrival. Symptoms and exam consistent with urticaria; not suggestive of SJS/TEN, staph scalded skin, TSS, DRESS, cellullitis, DIC, lyme, shingles/varicella/syphillis/infection. Will give PO benadyrl and prednisone here. No indication for labs or imaging. Will prescribe additional 4 days of prednisone. Discharged home; discharge instructions and return precutions were reviewed with patient and at bedside who verbalized understanding. All questions were answered and he is in full agreement with the plan. 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 (Acute) Sprain of ulnar collateral ligament of metacarpophalangeal (MCP) joint of left thumb (Acute) Femoral acetabular impingement (Acute) left hip Foreign body of knee, left, superficial (Acute) Spondylosis of lumbar region without myelopathy or radiculopathy (Chronic) Lumbar radicular pain (Chronic) Rotator cuff tear, right (Acute) Medical History (Updated 05/23/25 @ 06:00 by Tatum Carranza MD) Hydrocele Clot retention of urine Acute urinary retention SIRS (systemic inflammatory response syndrome) Urinary retention Seborrheic keratoses CKD (chronic kidney disease) NAFLD (nonalcoholic fatty liver disease) HLD (hyperlipidemia) Acute deep vein thrombosis (DVT) of brachial vein of right upper extremity (11/11/15) Complete tear of right rotator cuff (10/14/15) Right carpal tunnel syndrome (05/12/16) Spondylolisthesis at L4-L5 level (10/24/16) Hypertension Allergic rhinitis BPH (benign prostatic hyperplasia) Spinal stenosis GERD Surgical History (Updated 05/09/25 @ 07:35 by Alan Fuentes MD) History of hydrocelectomy S/P TURP Rotator Cuff Repair (09/03/15) Repair of inguinal hernia Endoscopic Carpal Tunnel release (06/07/16) Family History Brother Diabetes Hypertension Brother Diabetes Hypertension Cancer skin cancer, unknown type Brother Hypertension Brother Hypertension Mother Nonalcoholic fatty liver disease Social History Smoking/Tobacco Use Status: Never Smoking risk assessment performed?: Yes Alcohol Intake: never Drug use: Never Substance use type: does not use Housing: house
[2025-05-23] MEDS: predniSONE 20 MG TAB 40 MG PO (05:56)
[2025-05-23] MEDS: diphenhydrAMINE 25 MG CAP 50 MG PO (05:56)
== END 2025-05-23 06:09 | disposition home or self-care (01) ==
PROVIDERS: Emergency Provider Student in an Organized Health Care Education/Training Program; PCP Family Medicine
DX: L50.9 Urticaria, unspecified (principal); I12.9 Hypertensive chronic kidney disease with stage 1 through stage 4 chronic kidney disease, or unspecified chronic kidney disease; N18.9 Chronic kidney disease, unspecified; E78.5 Hyperlipidemia, unspecified; Z83.718 Family history of other colon polyps; Z79.899 Other long term (current) drug therapy
CPT/HCPCS: 99283; J7512